=== PATIENT | female | born 1970 | race Hispanic/Latino ===

== ENCOUNTER 2021-01-13 16:11 | Inpatient (IN) | payer OTHER ==
--- OUTSIDE RECORDS SUMMARY | 2021-01-13 16:14 | XMS REPORT | Continuity of Care Document ---
:1970 Author Organization [facility] t Address [address] [place] [address] Care Team Providers Name Role Phone Tisha ALANIZ Attending Clinician Problems This patient has no known problems. Allergies, Adverse Reactions, Alerts This patient has no known allergies or adverse reactions. Medications This patient has no known medications. Procedures This patient has no known procedures. Encounters Start End Encounter Admission Attending Care Care Encounter Source Date/Time Date/Time Type Type Clinicians Facility Department ID 2019-05-16 2019-05-16 [facility] [id number] 14:40:33 23:59:00 Encounter Dusty LOVELLRob [id number] MEDICAL [id number] [place] [id number] Results Test Description Test Time Test Comments Results Result Sourc e Comments Urine Culture 2019-05-24 C Urine Added 50,000 cfu/ml Gamma 11:48:25 by Streptococcus <10,000 [id number] cfu/ml Coagulase ND Negative Staphylococcus 20,000 cfu/ml Diphtheroids Multiple organisms present, no further workup in progress. RPR Qualitative 2019-05-17 05:12:47 Test Item Value Reference Range Interpretation Comme nts RPR Qual (test code = RPR Qual) Non-Reactive Non-Reactive Reactive Control (test code = Reactive Control) Reactive Weak Reactive Control (test code = Weak Reactive Weak Reactive Control) Non-Reactive Control (test code = Non-Reactive Non-Reactive Control) Lot # (test code = Lot #) [id number] Expiration Dt (test code = Expiration Dt) 08/18/2020 N Thyroid Stimulating [id number] 03:01:07 Test Item Value Reference Range Interpretation Comments TSH (test code = TSH) 1.720 mIU/mL 0.270-4.200 Lipid [id number] 02:37:10 Test Item Value Reference Range Interpretation Comments Cholesterol Total 265 mg/dL 0-200 H RISK OF HE ART (test code = DISEASEPublishe d by Cholesterol Total) [place] [employer] Cindy lyte Optimal Borderl ine Increased RiskC HOL <200 200-239 >2 40TRIG <150 150-199 >2 00HDL Male >60 <40H DL Female >60 <5 0LDL <100 130-159 >1 60LDL Near optimal is 100-129 Triglycerides (test 169 mg/dL 9-200 code = Triglycerides) HDL (test code = HDL) 73 mg/dL 50-60 H LDL (test code = LDL) 158 mg/dL 0-130 H The eq uation being used in this calcula tion is LDL = (Chol - H DL) - (Trig / 5) VLDL (test code = 34 mg/dL 5-40 The equati on being used VLDL) in this calcula tion is VLDL = Trig / 5 Chol/HDL (test code = 3.6 ratio 0.0-4.4 Chol/HDL) LDL/HDL Ratio (test 2 N The equa tion being used code = LDL/HDL Ratio) in thi s calculation is LDL/HDL Ratio=L DL Calc/HDL Chol Urinalysis [id number] 14:49:30 Test Item Value Reference Range Interpretation Comments UA WBC (test code = UA WBC) 0-5 0-5 UA RBC (test code = UA RBC) 0-5 0-5 UA Bacteria (test code = UA Bacteria) Few A UA Squam Epithelial (test code = UA 11-19 A Squam Epithelial) UA Renal Epi (test code = UA Renal Epi) 1-4 A UA Gran Cast (test code = UA Gran Cast) 1-5 A Urine Drug [id number] 14:10:48 Test Item Value Reference Range Interpretation Comments Amphetamine Screen Ur Negative Negative (test code = Amphetamine Screen Ur) Barbiturate Screen Ur Negative Negative (test code = Barbiturate Screen Ur) Benzodiazepines Ur (test Negative Negative code = Benzodiazepines Ur) Cocaine Screen Ur (test Negative Negative code = Cocaine Screen Ur) U Methadone Scr (test Negative Negative code = U Methadone Scr) Opiate Screen Ur (test Negative Negative code = Opiate Screen Ur) U PCP Scrn (test code = Negative Negative U PCP Scrn) Cannabinoid Screen Ur Negative Negative (test code = Cannabinoid Screen Ur) U TCA (test code = U Negative Negative The res ults of all TCA) drug screen carter ts are only preliminar y. Clinical consideration a nd professional ju dgment should be appli ed to any drug of abu se test result, particularly wh en preliminary pos itive results are obt ained. Please order a separate confir matory test if desired . Ethanol Level [id number] 14:07:55 Test Item Value Reference Range Interpretation Comments U Ethanol (test code = U Ethanol) <.00 g/dL .00-.01 U Ethanol Inst (test code = U <0.01 N Ethanol Inst) Urinalysis with Culture, if [id number] 14:06:02 Test Item Value Reference Range Interpretation Comments UA Color (test code = YELLO Yellow UA Color) UA Appear (test code = CLEAR Clear UA Appear) UA pH (test code = UA 5 N pH) UA Spec Grav (test code 1.024 1.001-1.035 = UA Spec Grav) UA Glucose (test code = NEG Negative UA Glucose) UA Bili (test code = UA NEG Negative Bili) UA Ketones (test code = 15 mg/dL Negative A UA Ketones) UA Blood (test code = NEG Negative UA Blood) UA Protein (test code = NEG Negative UA Protein) UA Urobilinogen (test 0.2 mg/dL N code = UA Urobilinogen) UA Nitrite (test code = NEG Negative UA Nitrite) UA Leuk Est (test code 25 cells/mcL Negative A = UA Leuk Est) UA Micro Ind? (test Indicated Not Indicated A Result created by code = UA Micro Ind?) rule GL_SJM_UA_MICRO _IN D HCG Qualitative [id number] 14:05:59 Test Item Value Reference Range Interpretation Comments hCG Ur (test code = Negative If the r esult is hCG Ur) "Negative" in p atients suspected to be , recom mend retest with a s ample obtained 48 to 72 hours later, or by ordering a quantitative as say. If the result i s "Borderline" te sting should be repea ivelisse in 48 to 72 hours. Lot # (test code = [id number] N Lot #) Expiration Dt (test 08/18/2020 N code = Expiration Dt) Neg Control (test Negative code = Neg Control) Pos Control (test Positive code = Pos Control) Internal QC (test Acceptable code = Internal QC) Comprehensive Metabolic [id number] 14:05:29 Test Item Value Reference Range Interpretation Comments Sodium Level (test code = Sodium 141.0 mmol/L 135.0-145.0 Level) Potassium Level (test code = 4.2 mmol/L 3.5-5.1 Potassium Level) Chloride Level (test code = 104 mmol/L 98-105 Chloride Level) CO2 (test code = CO2) 26 mmol/L 22-29 Anion Gap (test code = Anion 11 mmol/L 7-16 Gap) BUN (test code = BUN) 11.40 mg/dL 6.00-20.00 Creatinine Level (test code = 0.70 mg/dL 0.50-0.90 Creatinine Level) BUN/Creat Ratio (test code = 16 N BUN/Creat Ratio) Glucose Level (test code = 100 mg/dL 70-115 Glucose Level) Calcium Level (test code = 9.9 mg/dL 8.3-10.5 Calcium Level) Alk Phos (test code = Alk Phos) 84 U/L 35-104 Bilirubin Total (test code = 0.4 mg/dL 0.1-0.9 Bilirubin Total) Albumin Level (test code = 4.7 g/dL 3.5-5.2 Albumin Level) Protein Total (test code = 7.4 g/dL 6.4-8.3 Protein Total) ALT (test code = ALT) 13 U/L 1-33 AST (test code = AST) 13 U/L 1-32 Globulin (test code = Globulin) 2.7 g/dL 2.9-3.1 L A/G Ratio (test code = A/G 1.7 ratio N Ratio) Comprehensive Metabolic [id number] 14:05:29 Test Item Value Reference Range Interpretation Comments Sodium Level (test 141.0 mmol/L 135.0-145.0 code = Sodium Level) Potassium Level 4.2 mmol/L 3.5-5.1 (test code = Potassium Level) Chloride Level (test 104 mmol/L 98-105 code = Chloride Level) CO2 (test code = 26 mmol/L 22-29 CO2) Anion Gap (test code 11 mmol/L 7-16 = Anion Gap) BUN (test code = 11.40 mg/dL 6.00-20.00 BUN) Creatinine Level 0.70 mg/dL 0.50-0.90 (test code = Creatinine Level) BUN/Creat Ratio 16 N (test code = BUN/Creat Ratio) Glucose Level (test 100 mg/dL 70-115 code = Glucose Level) Calcium Level (test 9.9 mg/dL 8.3-10.5 code = Calcium Level) Alk Phos (test code 84 U/L 35-104 = Alk Phos) Bilirubin Total 0.4 mg/dL 0.1-0.9 (test code = Bilirubin Total) Albumin Level (test 4.7 g/dL 3.5-5.2 code = Albumin Level) Protein Total (test 7.4 g/dL 6.4-8.3 code = Protein Total) ALT (test code = 13 U/L 1-33 ALT) AST (test code = 13 U/L 1-32 AST) Globulin (test code 2.7 g/dL 2.9-3.1 L = Globulin) A/G Ratio (test code 1.7 ratio N = A/G Ratio) eGFR AA (test code = >60 N eGFR (e stimated eGFR AA) mL/min/1.73 m2 Glomerular Filtration Rate ) is an estimated va lue, calculated from the patient's serum creatinine usin g the MDRD equation. It is NOT the patient 's actual GFR. The eGFR provides a more clinically usef ul measure of kidn ey disease than se rum creatinine alone.This calculation katerina es sex and race in to account, if the information is provided. If th e race is not provided, and t he patient is -Meaghan n, multiply by 1.2 12. If sex is not provided, and t he patient is fema le, multiply by 0.7 42. Results for pat ients <18 years of ag e have not been validated by [facility] MDRD study and should be interpreted wit h caution. eGFR R esult Interpretation: eGFR > or = 60 is in the Normal RangeeGF R < 60 may mean kid jas diseaseeGFR < 1 5 may mean kidney failure Rang es recommended by the National Kidney Foundation, http://nkdep.ni h.gov Comprehensive Metabolic [id number] 14:05:29 Test Item Value Reference Range Interpretation Comments Sodium Level (test 141.0 mmol/L 135.0-145.0 code = Sodium Level) Potassium Level 4.2 mmol/L 3.5-5.1 (test code = Potassium Level) Chloride Level (test 104 mmol/L 98-105 code = Chloride Level) CO2 (test code = 26 mmol/L 22-29 CO2) Anion Gap (test code 11 mmol/L 7-16 = Anion Gap) BUN (test code = 11.40 mg/dL 6.00-20.00 BUN) Creatinine Level 0.70 mg/dL 0.50-0.90 (test code = Creatinine Level) BUN/Creat Ratio 16 N (test code = BUN/Creat Ratio) Glucose Level (test 100 mg/dL 70-115 code = Glucose Level) Calcium Level (test 9.9 mg/dL 8.3-10.5 code = Calcium Level) Alk Phos (test code 84 U/L 35-104 = Alk Phos) Bilirubin Total 0.4 mg/dL 0.1-0.9 (test code = Bilirubin Total) Albumin Level (test 4.7 g/dL 3.5-5.2 code = Albumin Level) Protein Total (test 7.4 g/dL 6.4-8.3 code = Protein Total) ALT (test code = 13 U/L 1-33 ALT) AST (test code = 13 U/L 1-32 AST) Globulin (test code 2.7 g/dL 2.9-3.1 L = Globulin) A/G Ratio (test code 1.7 ratio N = A/G Ratio) eGFR AA (test code = >60 N eGFR (e stimated eGFR AA) mL/min/1.73 m2 Glomerular Filtration Rate ) is an estimated va lue, calculated from the patient's serum creatinine usin g the MDRD equation. It is NOT the patient 's actual GFR. The eGFR provides a more clinically usef ul measure of kidn ey disease than se rum creatinine alone.This calculation katerina es sex and race in to account, if the information is provided. If th e race is not provided, and t he patient is -Meaghan n, multiply by 1.2 12. If sex is not provided, and t he patient is fema le, multiply by 0.7 42. Results for pat ients <18 years of ag e have not been validated by [facility] MDRD study and should be interpreted wit h caution. eGFR R esult Interpretation: eGFR > or = 60 is in the Normal RangeeGF R < 60 may mean kid jas diseaseeGFR < 1 5 may mean kidney failure Rang es recommended by the National Kidney Foundation, http://nkdep.ni h.gov eGFR Non-AA (test >60.00 N eGFR (maurilio mated code = eGFR Non-AA) mL/min/1.73 m2 Glomer ular Filtration Rate ) is an estimated va lue, calculated from the patient's serum creatinine usin g the MDRD equation. It is NOT the patient 's actual GFR. The eGFR provides a more clinically usef ul measure of kidn ey disease than se rum creatinine alone.This calculation katerina es sex and race in to account, if the information is provided. If th e race is not provided, and t he patient is -Meaghan n, multiply by 1.2 12. If sex is not provided, and t he patient is fema le, multiply by 0.7 42. Results for pat ients <18 years of ag e have not been validated by [facility] MDRD study and should be interpreted wit h caution. eGFR R esult Interpretation: eGFR > or = 60 is in the Normal RangeeGF R < 60 may mean kid jas diseaseeGFR < 1 5 may mean kidney failure Rang es recommended by the National Kidney Foundation, http://nkdep.ni h.gov Automated [id number] 13:53:32 Test Item Value Reference Range Interpretation Comments Neutro Auto (test code = Neutro 60.0 % 36.0-70.0 Auto) Lymph Auto (test code = Lymph Auto) 33.0 % 12.0-44.0 Sioux Auto (test code = Sioux Auto) 5.8 % 0.0-11.0 Eos, Auto (test code = Eos, Auto) 0.5 % 0.0-7.0 Basophil Auto (test code = Basophil 0.5 % 0.0-2.0 Auto) Neutro Absolute (test code = Neutro 3.8 x10 1.6-7.4 Absolute) Lymph Absolute (test code = Lymph 2.10 x10 .50-4.60 Absolute) Sioux Absolute (test code = Sioux .37 x10 .00-1.20 Absolute) Eos Absolute (test code = Eos 0.03 x10 0.00-0.74 Absolute) Baso Absolute (test code = Baso 0.03 x10 0.00-0.21 Absolute) IG [id number] 13:53:32 Test Item Value Reference Range Interpretation Comments IG (test code = IG) 0.2 % 0.0-5.0 IG Abs (test code = IG Abs) 0 x10 N Complete Blood Count with [id number] 13:53:31 Test Item Value Reference Range Interpretation Comments WBC (test code = WBC) 6.4 x10 4.4-10.5 RBC (test code = RBC) 4.05 x10 3.75-5.20 Hgb (test code = Hgb) 12.7 g/dL 12.2-14.8 Hct (test code = Hct) 37.8 % 36.5-44.4 MCV (test code = MCV) 93.30 fL 80.00-100.00 MCHC (test code = 33.60 g/dL 32.00-37.50 MCHC) RDW CV (test code = 12.1 % 11.5-14.5 RDW CV) MCH (test code = MCH) 31.4 pg 27.0-32.5 Platelets (test code = 278.0 x10 140.0-440.0 Platelets) MPV (test code = MPV) 10.5 fL N Slide Review (test Auto Auto Result cr eated by code = Slide Review) GL_SJM_ SLIDE_REV_AUTO nRBC (test code = 0 N nRBC) NRBC Abs (test code = 0.00 x10 N NRBC Abs) IPF (test code = IPF) 0 % N
[2021-01-13] MEDS ORDERED: METHYLPREDNISOLONE 125 MG INJ ONE (16:42)
[2021-01-13 16:55] LABS: Absolute Lymphocytes (CBC) 0.6 K/uL (0.7-4.9); Basophils % 0.2 % (0-1.3); Lymphocytes % 15.5 % (15.3-44.8); MPV 8.6 fL (7.6-11.3); RBC Red Blood Cell Count 4.02 M/uL (3.86-4.86)
--- NOTE | 2021-01-13 16:55 | RAD REPORT ---
EXAM DESCRIPTION: Paulette Single View01/13/2021 4:46 pm CLINICAL HISTORY: Cough COMPARISON: 2014 FINDINGS: Moderate bilateral pulmonary opacities The heart is normal size IMPRESSION: Moderate bilateral pulmonary opacities likely pneumonia
[2021-01-13 17:12] LABS: Albumin 3.2 g/dL (3.4-5.0); Bilirubin Direct 0.1 mg/dL (0-0.2); Bilirubin Total 0.3 mg/dL (0.2-1.0); Ferritin 474.9 ng/mL (8-388); Potassium 3.8 mmol/L (3.5-5.1); Protein, Total 8.2 g/dL (6.4-8.2)
--- NOTE | 2021-01-13 17:20 | ER ---
Nurse's Notes [facility] Name: Milvia Wei Age: 50 yrs Sex: Female : 1970 Arrival Date: 01/13/2021 Time: 16:12 Bed 8 Private MD: Diagnosis: Coronavirus infection, unspecified;Pneumonia, unspecified organism;Hypoxemia Presentation: 01/13 16:13 Coronavirus screen: Client reports previous positive COVID test result. Ebola Screen: sv No symptoms or risks identified at this time. Risk Assessment: Do you want to hurt yourself or someone else? Patient reports no desire to harm self or others. Onset of symptoms was January 13, 2021. 16:13 Acuity: THELMA 2 sv 16:13 Method Of Arrival: EMS: [facility] sv 16:14 Chief complaint: EMS states: COVID + since Last Thursday. Not feeling well x 1 week. Pt ss c/o SOB. 88% on RA. 3L NC applied en route to ED which brought O2 saturation up to 96%. Temperature is 100.2. Pt has not taken any medication today. Initial Sepsis Screen: Does the patient meet any 2 criteria? HR > 90 bpm. Does the patient have a suspected source of infection? No. Patient's initial sepsis screen is negative. Historical: - Allergies: 16:13 No Known Allergies; sv - Home Meds: 18:38 None [Active]; ss - PMHx: 18:38 None; ss - PSHx: 16:13 ; sv - Immunization history:: Adult Immunizations up to date. - Social history:: Smoking status: Patient denies any tobacco usage or history of. - Family history:: not pertinent. - Hospitalizations: : No recent hospitalization is reported. Screenin:19 Abuse screen: Denies threats or abuse. Denies injuries from another. Nutritional ss screening: No deficits noted. Tuberculosis screening: Never had TB. Fall Risk None identified. Assessment: 16:19 General: Appears in no apparent distress. comfortable, Behavior is calm, cooperative, ss Reports chills for fever for feeling ill for fatigue for x 1 week. Pain: Complains of pain in back Pain currently is 7 out of 10 on a pain scale. Quality of pain is described as aching. Neuro: Level of Consciousness is awake, alert, obeys commands, Oriented to person, place, time, situation, Radio Machinist are equal bilaterally Speech is normal, Facial symmetry appears normal. Cardiovascular: Capillary refill < 3 seconds is brisk in bilateral fingers Rhythm is sinus tachycardia. Respiratory: Airway is patent Respiratory effort is even, unlabored, Respiratory pattern is regular, symmetrical, Breath sounds are clear bilaterally. GI: Patient currently denies diarrhea, nausea, vomiting. : No signs and/or symptoms were reported regarding the genitourinary system. EENT: Nares are clear Oral mucosa is moist. Derm: Skin is dry, Skin is pink, warm \T\ dry. Musculoskeletal: Circulation, motion, and sensation intact. Range of motion: intact in all extremities, Swelling absent. 17:27 Reassessment: Patient appears in no apparent distress at this time. Patient and/or hb family updated on plan of care and expected duration. Pain level reassessed. Patient is alert, oriented x 3, equal unlabored respirations, skin warm/dry/pink. 18:40 Reassessment: Patient appears in no apparent distress at this time. Pt is resting at ss this time. Eyes closed. Respirations even and unlabored. Ivermectin not available at this time as pharmacy is closed. 19:41 General: Appears ill, Behavior is quiet. Neuro: Level of Consciousness is awake, obeys lp1 commands, Oriented to person, place, situation. Cardiovascular: Patient's skin is warm and dry. Respiratory: Airway is patent Respiratory effort is even, Respiratory pattern is regular, Breath sounds are diminished bilaterally. GI: Abdomen is obese. Derm: Skin is intact, Skin is dry, Skin is normal. Vital Signs: 16:14 BP 136 / 82; Pulse 105 RA; Resp 26; Temp 99.8(O); Pulse Ox 96% ; Weight 77.11 kg; ss Height 5 ft. 0 in. (152.40 cm); Pain 7/10; 17:27 BP 132 / 68; Pulse 101; Resp 22; Pulse Ox 95% on 3 lpm NC; ss 18:38 BP 110 / 56; Pulse 93; Resp 17; Pulse Ox 94% on 3 lpm NC; ss 19:41 BP 103 / 61; Pulse 94; Resp 20; Temp 101.3(O); Pulse Ox 94% 3 lpm ; lp1 16:14 Body Mass Index 33.20 (77.11 kg, 152.40 cm) ED Course: 16:12 Patient arrived in ED. sv 16:12 Dick Mccabe MD is Attending Physician. rn 16:14 Yenifer Vega, ALICIA is Primary Nurse. ss 16:14 Triage completed. sv 16:14 Arm band placed on right wrist. ss 16:19 Patient has correct armband on for positive identification. Placed in gown. Bed in low ss position. Call light in reach. Side rails up X 1. slip cover maker on. Pulse ox on. NIBP on. Warm blanket given. 16:35 Inserted saline lock: 20 gauge in right antecubital area, using aseptic technique. ss Blood collected. 16:46 CXR XRAY In Process Unspecified. EDMS 17:19 Jaqueline Hensley MD is Hospitalizing Provider. rn 17:32 Edgard Osorio MD is Hospitalizing Provider. rn 18:03 Blood Culture Adult (2) Sent. sv 18:42 No provider procedures requiring assistance completed. Patient admitted, IV remains in ss place. 19:33 Report given to LAICIA Reardon and ALICIA Pérez. ss Administered Medications: 16:30 Drug: SOLU-Medrol 125 mg Route: IVP; Site: right antecubital; ss 18:38 Follow up: Response: No adverse reaction ss 17:46 Drug: Zofran (Ondansetron) 4 mg Route: IVP; Site: right antecubital; hb 18:38 Follow up: Response: No adverse reaction; Nausea is decreased ss 19:18 Not Given (unavailable at this time as pharmacy is closed): Ivermectin 18 mg PO once ss 19:19 Not Given (Not available in department. To be given once upstairs): Xarelto 20 mg PO ss once Outcome: 17:19 Decision to Hospitalize by Provider. rn 18:42 Instructed on the need for admit. ss 19:51 Condition: stable lp1 20:34 Admitted to Tele accompanied by nurse, via stretcher, room 401, with oxygen, with lp1 chart, Report called to ALICIA diallo 20:35 Patient left the ED. lp1 Signatures: Dispatcher [employer] [facility] Alessandra Bidr RN RN Dick Mccabe MD MD rn Smirch, Shelby, RN RN Caron Block RN RN lp1 Shira Garcia RN RN hb Corrections: (The following items were deleted from the chart) 17:28 17:27 BP 132 / 68; Pulse 101bpm; Resp 17bpm; Pulse Ox 95%; hb hb 18:37 16:14 BP 136 / 82; Pulse 105bpm; Right ArmResp 19bpm; Pulse Ox 96%; Temp 99.8F Oral; ss 77.11 kg; Height 5 ft. 0 in.; BMI: 33.2; Pain 7/10; ss 18:37 17:27 BP 132 / 68; Pulse 101bpm; Resp 17bpm; Pulse Ox 95% 3 lpm Nasal Cannula; hb ss 18:42 18:40 Reassessment: Patient appears in no apparent distress at this time. Pt is resting ss at this time. Eyes closed. Respirations even and unlabored. Ivermectin not available at this time. ss 19:45 19:41 Pulse 94bpm; Resp 20bpm; Pulse Ox 94% 3 lpm; Temp 101.3F Oral; lp1 lp1 19:51 19:41 BP 98 / 52; Pulse 94bpm; Resp 20bpm; Pulse Ox 94% 3 lpm; Temp 101.3F Oral; lp1 lp1
--- NOTE | 2021-01-13 17:20 | EDPHYS ---
Physician Documentation [facility] Name: Milvia Wei Age: 50 yrs Sex: Female : 1970 Arrival Date: 01/13/2021 Time: 16:12 Bed 8 Private MD: ED Physician Dick Mccabe HPI: 01/13 16:21 This 50 yrs old Female presents to ER via EMS with complaints of Shortness Of rn Breath. 16:21 The patient has shortness of breath at rest. Onset: The symptoms/episode began/occurred rn 1 week(s) ago. Duration: The symptoms are continuous. The patient's shortness of breath is aggravated by coughing, light activity, walking, is alleviated by nothing. Associated signs and symptoms: Pertinent positives: productive cough, fever, Pertinent negatives: hemoptysis. Severity of symptoms: At their worst the symptoms were moderate in the emergency department the symptoms are unchanged. The patient has not experienced similar symptoms in the past. The patient has been recently seen by a physician:. Reports COVID +, symptoms began 1 week ago, tested and positive, reports increased sob and generalized weakness, + productive cough, no hemoptysis. No chronic lung problems. No heart problems. No chest pain. . Historical: - Allergies: 16:13 No Known Allergies; sv - Home Meds: 18:38 None [Active]; ss - PMHx: 18:38 None; ss - PSHx: 16:13 ; sv - Immunization history:: Adult Immunizations up to date. - Social history:: Smoking status: Patient denies any tobacco usage or history of. - Family history:: not pertinent. - Hospitalizations: : No recent hospitalization is reported. ROS: 16:21 Constitutional: Negative for weight loss Eyes: Negative for injury, pain, redness, and contracts intern, ENT: Negative for injury, pain, and discharge, Neck: Negative for injury, pain, and swelling, Cardiovascular: Negative for chest pain, palpitations, and edema, Respiratory: Negative for wheezing, and pleuritic chest pain, Abdomen/GI: Negative for abdominal pain, nausea, vomiting, diarrhea, and constipation, MS/Extremity: Negative for injury and deformity, Skin: Negative for injury, rash, and discoloration, Neuro: Negative for numbness, tingling, and seizure. Exam: 16:21 Constitutional: This is a well developed, well nourished patient who is awake, alert, rn + moderate tachypnea Head/Face: Normocephalic, atraumatic. Eyes: Pupils equal round and reactive to light, extra-ocular motions intact. Lids and lashes normal. Conjunctiva and sclera are non-icteric and not injected. Cornea within normal limits. Periorbital areas with no swelling, redness, or edema. ENT: no stridor Cardiovascular: tachycardic, regular Respiratory: + moderate tachypnea, no retractions Skin: Warm, dry MS/ Extremity: Pulses equal, no cyanosis. Neurovascular intact. Full, normal range of motion. Equal circumference. Neuro: Awake and alert, GCS 15 Vital Signs: 16:14 BP 136 / 82; Pulse 105 RA; Resp 26; Temp 99.8(O); Pulse Ox 96% ; Weight 77.11 kg; ss Height 5 ft. 0 in. (152.40 cm); Pain 7/10; 17:27 BP 132 / 68; Pulse 101; Resp 22; Pulse Ox 95% on 3 lpm NC; ss 18:38 BP 110 / 56; Pulse 93; Resp 17; Pulse Ox 94% on 3 lpm NC; ss 19:41 BP 103 / 61; Pulse 94; Resp 20; Temp 101.3(O); Pulse Ox 94% 3 lpm ; lp1 16:14 Body Mass Index 33.20 (77.11 kg, 152.40 cm) ss MDM: 16:12 Patient medically screened. rn 17:18 Differential diagnosis: pneumonia, Pneumothorax pulmonary edema, COVID pneumonia. Data rn reviewed: vital signs, nurses notes, lab test result(s), EKG, radiologic studies, plain films, and as a result, I will admit patient. Counseling: I had a detailed discussion with the patient and/or guardian regarding: the historical points, exam findings, and any diagnostic results supporting the discharge/admit diagnosis, lab results, radiology results, the need for further work-up and treatment in the hospital. Response to treatment: the patient's symptoms have mildly improved after treatment, and as a result, I will admit patient. Admission orders: after a detailed discussion of the patient's condition and case, the admit orders are written by me. ED course: Pt with worsening COVID pneumonia and oxygen requirement, no chronic medical conditions, will admit To Dr. Osorio. Requests xarelto, ivermectin, solumedrol, and remdesevir. . 17:24 ED course: . rn 01/13 16:18 Order name: Blood Culture Adult (2) rn 01/13 16:18 Order name: BMP; Complete Time: 17:17 rn 01/13 16:18 Order name: C-Reactive Protein; Complete Time: 17:17 rn 01/13 16:18 Order name: CBC with Diff; Complete Time: 17:02 rn 01/13 16:18 Order name: D-Dimer; Complete Time: 17:02 rn 01/13 16:18 Order name: Ferritin; Complete Time: 17:17 rn 01/13 16:18 Order name: Lactate; Complete Time: 17:17 rn 01/13 16:18 Order name: LFT's; Complete Time: 17:17 rn 01/13 16:18 Order name: Procalcitonin rn 01/13 16:18 Order name: CXR XRAY; Complete Time: 17:02 rn 01/13 16:18 Order name: Blood Culture EDPA 01/13 16:18 Order name: EKG; Complete Time: 16:19 rn 01/13 16:18 Order name: Cardiac monitoring; Complete Time: 16:34 rn 01/13 16:18 Order name: Droplet/Contact Precautions; Complete Time: 16:34 rn 01/13 16:18 Order name: EKG - Nurse/Tech; Complete Time: 16:49 rn 01/13 16:18 Order name: IV Start; Complete Time: 16:34 rn 01/13 16:18 Order name: Labs collected and sent; Complete Time: 16:35 rn 01/13 16:18 Order name: O2 Per Protocol; Complete Time: 16:35 rn 01/13 16:18 Order name: O2 Sat Monitoring; Complete Time: 16:35 rn Administered Medications: 16:30 Drug: SOLU-Medrol 125 mg Route: IVP; Site: right antecubital; ss 18:38 Follow up: Response: No adverse reaction ss 17:46 Drug: Zofran (Ondansetron) 4 mg Route: IVP; Site: right antecubital; hb 18:38 Follow up: Response: No adverse reaction; Nausea is decreased ss 19:18 Not Given (unavailable at this time as pharmacy is closed): Ivermectin 18 mg PO once ss 19:19 Not Given (Not available in department. To be given once upstairs): Xarelto 20 mg PO ss once Disposition: 01/13/21 17:19 Hospitalization ordered by Edgard Osorio for Inpatient Admission. Preliminary diagnosis are Coronavirus infection, unspecified, Pneumonia, unspecified organism, Hypoxemia. - Bed requested for Telemetry/MedSurg (Inpatient). - Status is Inpatient Admission. lp1 - Condition is Stable. - Problem is new. - Symptoms have worsened. Signatures: Dispatcher [employer] EDMS Alessandra Bird RN RN Dick Mccabe MD MD rn Smirch, Shelby, RN RN Caron Block RN RN lp1 Shira Garcia RN RN Sue Cosme Corrections: (The following items were deleted from the chart) 17:32 17:19 Hospitalization Ordered by Jaqueline Hensley MD for Inpatient Admission. Preliminary rn diagnosis is Coronavirus infection, unspecified; Pneumonia, unspecified organism; Hypoxemia. Bed requested for Telemetry/MedSurg (Inpatient). Status is Inpatient Admission. Condition is Stable. Problem is new. Symptoms have worsened. rn 17:33 17:18 ED course: Pt with worsening COVID pneumonia and oxygen requirement, no chronic rn medical conditions, will admit To Dr. Hensley. . rn 17:33 17:24 ED course: Dr. 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 Will call back Dr. De Leon and consult with her. . rn 18:40 17:32 01/13/2021 17:19 Hospitalization Ordered by Edgard Osorio MD for Inpatient eb Admission. Preliminary diagnosis is Coronavirus infection, unspecified; Pneumonia, unspecified organism; Hypoxemia. Bed requested for Telemetry/MedSurg (Inpatient). Status is Inpatient Admission. Condition is Stable. Problem is new. Symptoms have worsened. rn 20:35 18:40 01/13/2021 17:19 Hospitalization Ordered by Edgard Osorio MD for Inpatient lp1 Admission. Preliminary diagnosis is Coronavirus infection, unspecified; Pneumonia, unspecified organism; Hypoxemia. Bed requested for Telemetry/MedSurg (Inpatient). Status is Inpatient Admission. Condition is Stable. Problem is new. Symptoms have worsened. eb
[2021-01-13] MEDS ORDERED: ONDANSETRON 4 MG/2 ML VIAL ONE (17:57)
[2021-01-13] MEDS ORDERED: RIVAROXABAN 10 MG TABLET PO ONE (19:15)
[2021-01-13] MEDS: ACETAMINOPHEN 500 MG TAB PO PRN (19:49)
[2021-01-13] MEDS ORDERED: ACETAMINOPHEN 500 MG TAB ONE (20:05)
[2021-01-13] MEDS: METHYLPREDNISOLONE 125 MG INJ IV SCH (22:26)
[2021-01-14 04:27] LABS: Absolute Lymphocytes (CBC) 0.4 K/uL (0.7-4.9); Basophils % 0.1 % (0-1.3); Hematocrit 34.4 % (36.0-45.0); Lymphocytes % 16.8 % (15.3-44.8); MPV 8.7 fL (7.6-11.3); RBC Red Blood Cell Count 3.84 M/uL (3.86-4.86)
[2021-01-14 04:37] LABS: Potassium 4.1 mmol/L (3.5-5.1)
[2021-01-14] MEDS: METHYLPREDNISOLONE 125 MG INJ IV SCH ×4 (05:13→20:05)
[2021-01-14 06:33] LABS: Blood Morphology Comment NOT SEEN (NOT SEEN); Platelet Estimate ADEQ; White Blood Cell Scan OK (OK)
[2021-01-14] MEDS: levoFLOXacin 500 MG TAB PO SCH (07:50)
--- NOTE | 2021-01-14 08:29 | P.CNS ---
Date of Consult: 01/14/21 Reason for Consult: Respiratory failure due to ma virus Chief Complaint: Shortness of breath History of Present Illness: Patient is 50 years of age was diagnosed with ma virus about a week ago came in hypoxic progressive shortness of breath as currently on high-flow nasal cannula condition stable Allergies No Known Allergies Allergy (Unverified 08/23/12 15:26) Home Medications: NK [No Home Meds] 01/13/21 - Social History Place of Residence: Home Review of Systems General: Weakness Respiratory: Shortness of Breath Physical Examination Temp Pulse Resp BP Pulse Ox 97.4 F 66 16 106/56 L 91 01/14/21 04:00 01/14/21 04:00 01/14/21 04:00 01/14/21 04:00 01/14/21 04:00 Laboratory Data (last 24 hrs) 01/13/21 16:36: WBC 4.00 L, Hgb 12.2, Hct 36.0, Plt Count 181 01/13/21 16:36: Sodium 140, Potassium 3.8, BUN 13, Creatinine 0.88, Glucose 119 H, Total Bilirubin 0.3, AST 39 H, ALT 40, Alkaline Phosphatase 84 - Problems (1) Pneumonia due to 2019 novel coronavirus Current Visit: Yes Status: Acute Plan: Patient is 50 years of age admitted with respiratory failure from ma virus labs reviewed white count is mildly decreased currently stable can Dc levofloxacin no evidence of an infection decrease Solu-Medrol to 80 mg twice a day agree with full anticoagulation/ Remdesmir add aspirin
[2021-01-14] MEDS: ASPIRIN EC 81 MG TAB PO SCH (09:00)
[2021-01-14] MEDS ORDERED: Remdesivir 200 MG in NA CHLORIDE 0.9% 250 ML IV ONE (10:00)
[2021-01-14] MEDS ORDERED: RIVAROXABAN 10 MG TABLET PO SCH (17:00)
[2021-01-14] MEDS: RIVAROXABAN 20 MG TABLET PO SCH (17:16)
[2021-01-14] MEDS: ACETAMINOPHEN 500 MG TAB PO PRN (20:05)
--- NOTE | 2021-01-14 21:07 | P.HP ---
Certification for Inpatient Patient admitted to: Inpatient With expected LOS: >2 Midnights Practitioner: I am a practitioner with admitting privileges, knowledge of patient current condition, hospital course, and medical plan of care. Services: Services provided to patient in accordance with Admission requirements found in Title 42 Section 412.3 of the Code of Federal Regulations Patient History Date of Service: 01/14/21 Reason for admission: Shortness of breath History of Present Illness: MS. BUSH FOUND THAT SHE HAD COVID INFECTION ABOUTA WEEK AGO. I WAS NOT TOLD ABOUT THIS. SHE REPORTS TO ER FOR DYSPNEA. SHE HAS NOT TAKEN ANY THERAPY FOR IT. Allergies No Known Allergies Allergy (Unverified 08/23/12 15:26) Home Medications: NK [No Home Meds] 01/13/21 - Past Medical/Surgical History Has patient received pneumonia vaccine in the past: No Diabetic: No - Social History Smoking Status: Never smoker Place of Residence: Home Review of Systems 10-point ROS is otherwise unremarkable General: Weakness Respiratory: Cough, Shortness of Breath Physical Examination - Vital Signs Temperature: 96.8 F Blood Pressure: 118/61 Pulse: 72 Respirations: 16 Pulse Ox (%): 93 - Physical Exam General: Oriented x2, Mild distress, Obese HEENT: Atraumatic, PERRLA, Mucous membr. moist/pink, EOMI, Sclerae nonicteric Neck: Supple, 2+ carotid pulse no bruit, No LAD, Without JVD or thyroid abnormality Respiratory: Clear to auscultation bilaterally, Normal air movement Cardiovascular: Regular rate/rhythm, Normal S1 S2 Gastrointestinal: Normal bowel sounds, No tenderness Musculoskeletal: No tenderness Integumentary: No rashes Neurological: Normal gait, Normal speech, Normal strength at 5/5 x4 extr, Normal tone, Normal affect Lymphatics: No axilla or inguinal lymphadenopathy Assessment and Plan - Problems (Diagnosis) (1) Pneumonia due to 2019 novel coronavirus Current Visit: Yes Status: Acute Plan: WE ARE FOLLOWING MASK 2 PROTOCOL FOR COVID IV HIGH DOSE STEROIDS. IVERMECTIN PO EVERY OTHER DAY. XARELTO PO DAILY. REMDESIVIR DAILY IV. HIGH ARIEL OXYGEN PROGNOSIS GUARDED. - Advance Directives Does patient have a Living Will: No Does patient have a Durable POA for Healthcare: No
[2021-01-14] MEDS: IVERMECTIN 3 MG TABLET PO SCH (21:17)
[2021-01-15 03:58] LABS: ALT/SGPT 35 U/L (12-78); Albumin 2.8 g/dL (3.4-5.0); Alkaline Phosphatase 72 U/L (45-117); Bilirubin Direct < 0.1 mg/dL (0-0.2); Bilirubin Total 0.3 mg/dL (0.2-1.0); Protein, Total 7.7 g/dL (6.4-8.2)
[2021-01-15 04:02] LABS: AST/SGOT 36 U/L (15-37)
[2021-01-15] MEDS ORDERED: IVERMECTIN 3 MG TABLET PO ONE (06:00)
[2021-01-15] MEDS: ONDANSETRON 4 MG/2 ML VIAL IV PRN (08:25)
[2021-01-15] MEDS: levoFLOXacin 500 MG TAB PO SCH (08:26)
[2021-01-15] MEDS: METHYLPREDNISOLONE 125 MG INJ IV SCH ×2 (08:26→21:00)
[2021-01-15] MEDS: ACETAMINOPHEN 500 MG TAB PO PRN ×2 (08:26→22:48)
[2021-01-15] MEDS: ASPIRIN EC 81 MG TAB PO SCH (08:26)
[2021-01-15] MEDS: Remdesivir 100 MG in NA CHLORIDE 0.9% 250 ML IV SCH (09:32)
[2021-01-15] MEDS: RIVAROXABAN 20 MG TABLET PO SCH (17:49)
--- NOTE | 2021-01-16 01:53 | PN ---
Subjective: Milvia is COVID patient with pneumonia. Slightly better than yesterday according to her. She looks clinically in [id number] distress with the BiPAP in use. Heart is showing normal sinus rhythm. Assessment And Plan: COVID pneumonia. Continue current medications, steroids IV, oral ivermectin 2 dosages have been given, remdesivir second dose today and anticoagulation for DVT/ PE prophylaxis. Prognosis is overall guarded. RVD/MODL Voice ID: [id number] Report ID: [id number] MTDD
[2021-01-16] MEDS: ONDANSETRON 4 MG/2 ML VIAL IV PRN (03:37)
[2021-01-16 04:21] LABS: ALT/SGPT 37 U/L (12-78); AST/SGOT 33 U/L (15-37); Albumin 2.7 g/dL (3.4-5.0); Alkaline Phosphatase 78 U/L (45-117); Bilirubin Direct < 0.1 mg/dL (0-0.2); Bilirubin Total 0.3 mg/dL (0.2-1.0); Protein, Total 7.5 g/dL (6.4-8.2)
[2021-01-16] MEDS: ASPIRIN EC 81 MG TAB PO SCH (09:06)
[2021-01-16] MEDS: levoFLOXacin 500 MG TAB PO SCH (09:07)
[2021-01-16] MEDS: Remdesivir 100 MG in NA CHLORIDE 0.9% 250 ML IV SCH (09:07)
[2021-01-16] MEDS: METHYLPREDNISOLONE 125 MG INJ IV SCH ×2 (09:08→20:06)
--- NOTE | 2021-01-16 12:54 | P.PN ---
Subjective Date of Service: 01/16/21 Chief Complaint: Respiratory failure No change still very short of breath Review of Systems General: Weakness Respiratory: Shortness of Breath Physical Examination - Vital Signs Temperature: 96.7 F Blood Pressure: 109/53 Pulse: 79 Respirations: 24 Pulse Ox (%): 89 - Physical Exam General: Alert, Moderate distress Respiratory: Clear to auscultation bilaterally, Diminished Assessment & Plan - Problems (Diagnosis) (1) Pneumonia due to 2019 novel coronavirus Current Visit: Yes Status: Acute Plan: Respiratory failure from ma virus still requiring high concentrations of oxygen recommend reduce dose of Solu-Medrol to 80 IV Q 12can Dc antibiotics no evidence of sepsis hypoxemia Dc Levaquin
[2021-01-16] MEDS: RIVAROXABAN 20 MG TABLET PO SCH (17:00)
[2021-01-16] MEDS: ACETAMINOPHEN 500 MG TAB PO PRN (19:28)
[2021-01-16] MEDS: IVERMECTIN 3 MG TABLET PO SCH (20:06)
--- NOTE | 2021-01-17 00:35 | PN ---
Subjective: Ms. Wei is stable but oxygenation has gotten worse today. Dr. Dc has put her on high-flow oxygen. Objective: Vital Signs: Blood pressure 145/71, temperature 96.7. HEENT: No JVD. No carotid bruits. Lungs: Accessory muscles of respiration at work. She has a CPAP on and high-flow oxygen. Assessment And Plan: COVID pneumonia. Continue steroids IV, remdesivir IV. Ivermectin course has f inished every other day for 2 dosages and Xarelto p.o. to prevent DVT and pulmonary embolism. Progno sis guarded. RVD/MODL Voice ID: [id number] Report ID: [id number]
[2021-01-17 04:10] LABS: Absolute Lymphocytes (CBC) 0.5 K/uL (0.7-4.9); Basophils % 0.1 % (0-1.3); Hematocrit 35.3 % (36.0-45.0); Lymphocytes % 6.5 % (15.3-44.8); MPV 9.2 fL (7.6-11.3)
[2021-01-17 04:48] LABS: Albumin 2.6 g/dL (3.4-5.0); Bilirubin Direct 0.2 mg/dL (0-0.2); Bilirubin Total 0.5 mg/dL (0.2-1.0); Potassium 4.6 mmol/L (3.5-5.1)
[2021-01-17] MEDS: ONDANSETRON 4 MG/2 ML VIAL IV PRN ×2 (06:07→20:18)
[2021-01-17] MEDS: Remdesivir 100 MG in NA CHLORIDE 0.9% 250 ML IV SCH (09:00)
[2021-01-17] MEDS: ASPIRIN EC 81 MG TAB PO SCH (09:31)
[2021-01-17] MEDS: METHYLPREDNISOLONE 125 MG INJ IV SCH ×2 (09:32→20:26)
[2021-01-17] MEDS: GUAIFENESIN/DM 5 ML UCUP PO PRN ×2 (11:52→20:27)
[2021-01-17] MEDS: RIVAROXABAN 20 MG TABLET PO SCH (16:57)
--- NOTE | 2021-01-17 21:31 | P.PN ---
Subjective Date of Service: 01/17/21 Chief Complaint: Respiratory failure Subjective: No new changes NASAL CONGESTION, AND COUGH. Review of Systems Respiratory: Cough, Shortness of Breath Physical Examination - Vital Signs Temperature: 96.7 F Blood Pressure: 130/60 Pulse: 63 Respirations: 20 Pulse Ox (%): 90 - Physical Exam General: Oriented x3, Moderate distress HEENT: Atraumatic, PERRLA, EOMI Cardiovascular: Regular rate/rhythm Musculoskeletal: No tenderness Integumentary: No rashes Lymphatics: No axilla or inguinal lymphadenopathy - Studies Medications List Reviewed: Yes Assessment And Plan - Current Problems (Diagnosis) (1) Pneumonia due to 2019 novel coronavirus Current Visit: Yes Status: Acute Plan: WE ARE FOLLOWING MASK 2 PROTOCOL FOR COVID IV HIGH DOSE STEROIDS. IVERMECTIN PO EVERY OTHER DAY. XARELTO PO DAILY. REMDESIVIR DAILY IV. HIGH ARIEL OXYGEN PROGNOSIS GUARDED. ADD FLONASE AND ASTELIN FOR NASAL CONGESTION.
[2021-01-18] MEDS: FLUTICASONE 50MCG NASAL SPRAY NAS SCH ×2 (01:00→10:23)
[2021-01-18 05:20] LABS: Absolute Lymphocytes (CBC) 0.4 K/uL (0.7-4.9); Hematocrit 36.7 % (36.0-45.0); Lymphocytes % 5.4 % (15.3-44.8); MPV 9.2 fL (7.6-11.3); RBC Red Blood Cell Count 4.05 M/uL (3.86-4.86)
[2021-01-18 05:34] LABS: Albumin 2.7 g/dL (3.4-5.0); Bilirubin Direct 0.2 mg/dL (0-0.2); Bilirubin Total 0.6 mg/dL (0.2-1.0); Potassium 4.7 mmol/L (3.5-5.1); Protein, Total 7.1 g/dL (6.4-8.2)
[2021-01-18] MEDS: METHYLPREDNISOLONE 125 MG INJ IV SCH ×2 (08:29→21:16)
[2021-01-18] MEDS: ASPIRIN EC 81 MG TAB PO SCH (08:29)
--- NOTE | 2021-01-18 08:32 | RAD REPORT ---
EXAM DESCRIPTION: RAD - Chest Single View - 01/17/2021 10:11 pm CLINICAL HISTORY: COVID FU, pneumonia COMPARISON: January 13 TECHNIQUE: AP portable chest image was obtained 01/17/2021 10:11 pm . FINDINGS: Bilateral pneumonia changes, worse on the left, have shown moderate improvement since . Significant infiltrate remains. No developing failure or volume overload seen. Heart and vascul ature are normal. No measurable pleural effusion and no pneumothorax. No acute bony abnormality seen. No acute aortic findings suspected. IMPRESSION: Moderate improvement in the bilateral pneumonia pattern since January 13.
[2021-01-18] MEDS: AZELASTINE NASAL SPRAY 30 ML NAS SCH ×2 (10:21→21:17)
[2021-01-18] MEDS: ACETAMINOPHEN 500 MG TAB PO PRN (10:24)
[2021-01-18] MEDS: GUAIFENESIN/DM 5 ML UCUP PO PRN (10:24)
[2021-01-18] MEDS: ONDANSETRON 4 MG/2 ML VIAL IV PRN (10:26)
[2021-01-18] MEDS: RIVAROXABAN 20 MG TABLET PO SCH (17:41)
--- NOTE | 2021-01-18 20:52 | P.PN ---
Subjective Date of Service: 01/18/21 Chief Complaint: Respiratory failure Subjective: Improving NASAL CONGESTION, AND COUGH. SHE IS STILL VERY CONGESTED BY HER CXR HAS IMPROVED. Review of Systems 10-point ROS is otherwise unremarkable General: Weakness Physical Examination - Vital Signs Temperature: 97.3 F Blood Pressure: 133/66 Pulse: 59 Respirations: 24 Pulse Ox (%): 91 - Physical Exam General: Oriented x3, Moderate distress, Obese HEENT: Atraumatic, PERRLA, EOMI Neck: Supple, JVD not distended Respiratory: Diminished Cardiovascular: Regular rate/rhythm, Normal S1 S2 Gastrointestinal: Normal bowel sounds, No tenderness Musculoskeletal: No tenderness Integumentary: No rashes Neurological: Normal speech, Normal tone, Normal affect Lymphatics: No axilla or inguinal lymphadenopathy - Studies Microbiology Data (last 24 hrs): 01/13/21 16:27 Blood - Blood Aerobic Blood Culture - Final No growth in 5 days. 01/13/21 16:27 Blood - Blood Anaerobic Blood Culture - Final No growth in 5 days. 01/13/21 16:36 Blood - Blood Aerobic Blood Culture - Final No growth in 5 days. 01/13/21 16:36 Blood - Blood Anaerobic Blood Culture - Final No growth in 5 days. Medications List Reviewed: Yes Assessment And Plan - Current Problems (Diagnosis) (1) Pneumonia due to 2019 novel coronavirus Current Visit: Yes Status: Acute Plan: WE ARE FOLLOWING MASK 2 PROTOCOL FOR COVID IV HIGH DOSE STEROIDS. IVERMECTIN PO EVERY OTHER DAY. XARELTO PO DAILY. REMDESIVIR DAILY IV. HIGH ARIEL OXYGEN PROGNOSIS GUARDED. ADD FLONASE AND ASTELIN FOR NASAL CONGESTION. SHE IS STILL VERY HYPOXIC BUT CXR HAS IMPROVING AND SO I AM OPTIMISTIC.
[2021-01-19] MEDS: ACETAMINOPHEN 500 MG TAB PO PRN ×3 (03:31→15:48)
[2021-01-19] MEDS: GUAIFENESIN/DM 5 ML UCUP PO PRN ×4 (03:31→23:20)
[2021-01-19] MEDS: AZELASTINE NASAL SPRAY 30 ML NAS SCH ×2 (09:00→19:43)
[2021-01-19] MEDS: FLUTICASONE 50MCG NASAL SPRAY NAS SCH ×2 (09:00→19:44)
[2021-01-19] MEDS: ASPIRIN EC 81 MG TAB PO SCH (09:59)
[2021-01-19] MEDS: METHYLPREDNISOLONE 125 MG INJ IV SCH ×2 (09:59→19:44)
--- NOTE | 2021-01-19 12:03 | P.PN ---
Subjective Date of Service: 01/19/21 Chief Complaint: Respiratory failure No change still very short of breath patient developed subcutaneous emphysema come neck pain Review of Systems General: Weakness Respiratory: Shortness of Breath Physical Examination - Vital Signs Temperature: 97.1 F Blood Pressure: 144/67 Pulse: 54 Respirations: 24 Pulse Ox (%): 90 - Physical Exam General: Alert, Moderate distress Cardiovascular: No edema, Normal S1 S2 - Studies Microbiology Data (last 24 hrs): 01/13/21 16:27 Blood - Blood Aerobic Blood Culture - Final No growth in 5 days. 01/13/21 16:27 Blood - Blood Anaerobic Blood Culture - Final No growth in 5 days. 01/13/21 16:36 Blood - Blood Aerobic Blood Culture - Final No growth in 5 days. 01/13/21 16:36 Blood - Blood Anaerobic Blood Culture - Final No growth in 5 days. Medications List Reviewed: Yes Assessment & Plan - Problems (Diagnosis) (1) Pneumonia due to 2019 novel coronavirus Current Visit: Yes Status: Acute Plan: Respiratory failure and requiring high concentrations of oxygen patient is lot of subcutaneous emphysema continue to monitor resume steroid
[2021-01-19] MEDS: RIVAROXABAN 20 MG TABLET PO SCH (15:49)
[2021-01-19] MEDS: CEFTRIAXONE/SWI 1gm 1 GM/10 ML SYR IV SCH ×2 (17:24→19:45)
--- NOTE | 2021-01-19 18:40 | RAD REPORT ---
EXAM DESCRIPTION: CT - Soft Tissue Neck W/Contr - 01/19/2021 5:59 pm CLINICAL HISTORY: Neck pain with sore throat COMPARISON: None. TECHNIQUE: Computed axial tomography of the neck was obtained. 50 cc Isovue 300 was administered in travenously. Coronal and sagittal reconstruction was performed. All CT scans are performed using dose optimization technique as appropriate and may include automated exposure control or mA/KV adjustment according to patient size. FINDINGS: Moderate subcutaneous emphysema involves the neck bilaterally. Images of the upper chest d emonstrate pneumomediastinum. A small left apical pneumothorax is visualized. The remainder pharynx, tongue base, larynx and subglottic trachea appear unremarkable The parotid, submandibular and thyroid glands appear unremarkable. No lymphadenopathy is seen The sinuses and mastoids are clear. IMPRESSION: Moderate subcutaneous emphysema within the neck. Pneumomediastinum. Small left apical pn eumothorax The examination was discussed with Dr. Osorio at 6:30 p.m. January 19, 2021
[2021-01-19] MEDS: TRAMADOL HCL 50 MG TAB PO PRN (19:47)
--- NOTE | 2021-01-19 20:36 | P.PN ---
Subjective Date of Service: 01/19/21 Chief Complaint: Respiratory failure Subjective: New changes NASAL CONGESTION, AND COUGH. SHE IS STILL VERY CONGESTED BY HER CXR HAS IMPROVED. SHE COMPLAINED OF NECK PAIN ON L SIDE TODAY. I ASKED NURSE TO ORDER CT NECK SOFT TISSUE STAT THERE MAY BE AN ABSCESS OR SO BUT ACTUALLY SHE HAS SUBCUTANEOUS EMPHYSEMA, SMALL APICAL PNEUMOTHORAX AND PNEUMOMEDIASTINUM. Physical Examination - Vital Signs Temperature: 97.2 F Blood Pressure: 127/68 Pulse: 72 Respirations: 37 Pulse Ox (%): 90 - Physical Exam General: Oriented x3, Moderate distress, Obese Respiratory: Other (ACCESORY MUSCLES AT WORK.) Cardiovascular: Regular rate/rhythm - Studies Microbiology Data (last 24 hrs): 01/13/21 16:27 Blood - Blood Aerobic Blood Culture - Final No growth in 5 days. 01/13/21 16:27 Blood - Blood Anaerobic Blood Culture - Final No growth in 5 days. 01/13/21 16:36 Blood - Blood Aerobic Blood Culture - Final No growth in 5 days. 01/13/21 16:36 Blood - Blood Anaerobic Blood Culture - Final No growth in 5 days. Medications List Reviewed: Yes Assessment And Plan - Current Problems (Diagnosis) (1) Pneumonia due to 2019 novel coronavirus Current Visit: Yes Status: Acute Plan: WE ARE FOLLOWING MASK 2 PROTOCOL FOR COVID IV HIGH DOSE STEROIDS. IVERMECTIN PO EVERY OTHER DAY. XARELTO PO DAILY. REMDESIVIR DAILY IV. HIGH ARIEL OXYGEN PROGNOSIS GUARDED. ADD FLONASE AND ASTELIN FOR NASAL CONGESTION. SHE IS STILL VERY HYPOXIC BUT CXR HAS IMPROVING AND SO I AM OPTIMISTIC. (2) Acute pneumothorax Current Visit: Yes Status: Acute Plan: THIS IS A COMPLICATION OR COVID. THIS IS ACUTE WORSENING. HOPEFULLY SHE RECOVERS. PROGNOSIS IS WORSE. I CALLED DAUGHTER AND INFORMED HER OF NEW FINDING. (3) Pneumomediastinum Current Visit: Yes Status: Acute (4) Subcutaneous emphysema Current Visit: Yes Status: Acute
[2021-01-19] MEDS ORDERED: CEFTRIAXONE 1 GM/NS 50 ML 1 GM/50 ML BAG IV SCH (21:00)
[2021-01-20] MEDS: TRAMADOL HCL 50 MG TAB PO PRN ×3 (03:09→22:40)
[2021-01-20 05:11] LABS: Absolute Lymphocytes (CBC) 0.5 K/uL (0.7-4.9); Basophils % 0.2 % (0-1.3); MPV 9.3 fL (7.6-11.3); RBC Red Blood Cell Count 4.11 M/uL (3.86-4.86)
[2021-01-20 05:21] LABS: Potassium 4.8 mmol/L (3.5-5.1)
[2021-01-20 05:46] LABS: Blood Morphology Comment NOT SEEN (NOT SEEN); Platelet Estimate ADEQ
[2021-01-20] MEDS: ONDANSETRON 4 MG/2 ML VIAL IV PRN (08:02)
[2021-01-20] MEDS: ACETAMINOPHEN 500 MG TAB PO PRN (08:02)
[2021-01-20] MEDS: GUAIFENESIN/DM 5 ML UCUP PO PRN ×2 (08:02→13:55)
[2021-01-20] MEDS: ASPIRIN EC 81 MG TAB PO SCH (08:03)
[2021-01-20] MEDS: METHYLPREDNISOLONE 125 MG INJ IV SCH ×3 (08:03→20:26)
[2021-01-20] MEDS: AZELASTINE NASAL SPRAY 30 ML NAS SCH ×2 (08:04→20:54)
[2021-01-20] MEDS: FLUTICASONE 50MCG NASAL SPRAY NAS SCH ×2 (08:04→20:54)
[2021-01-20 11:10] LABS: Arterial Blood Carboxyhemoglob 0.7 % (0-1.5); Blood Gas Oxyhemoglobin 89.2 % (94-97); Blood O2 Saturation 90.8 % (92-98.5)
--- NOTE | 2021-01-20 14:13 | P.PN ---
Subjective Date of Service: 01/20/21 Chief Complaint: Respiratory failure Subjective: Improving NASAL CONGESTION, AND COUGH. SHE IS STILL VERY CONGESTED BY HER CXR HAS IMPROVED. SHE COMPLAINED OF NECK PAIN ON L SIDE TODAY. I ASKED NURSE TO ORDER CT NECK SOFT TISSUE STAT THERE MAY BE AN ABSCESS OR SO BUT ACTUALLY SHE HAS SUBCUTANEOUS EMPHYSEMA, SMALL APICAL PNEUMOTHORAX AND PNEUMOMEDIASTINUM. ADAM IS STABLE, WEAK AND STILL HAS PAIN ON NECK AREA. Review of Systems 10-point ROS is otherwise unremarkable General: Weakness, Malaise Respiratory: Shortness of Breath Physical Examination - Vital Signs Temperature: 97.3 F Blood Pressure: 139/63 Pulse: 60 Respirations: 22 Pulse Ox (%): 94 - Physical Exam General: Moderate distress, Obese HEENT: Atraumatic, PERRLA, EOMI Neck: Supple, JVD not distended Respiratory: Diminished Cardiovascular: Regular rate/rhythm, Normal S1 S2 Gastrointestinal: Normal bowel sounds, No tenderness Musculoskeletal: No tenderness Integumentary: No rashes Neurological: Normal speech, Normal tone, Normal affect Lymphatics: No axilla or inguinal lymphadenopathy - Studies Medications List Reviewed: Yes Assessment And Plan - Current Problems (Diagnosis) (1) Pneumonia due to 2019 novel coronavirus Current Visit: Yes Status: Acute Plan: WE ARE FOLLOWING MASK 2 PROTOCOL FOR COVID IV HIGH DOSE STEROIDS. IVERMECTIN PO EVERY OTHER DAY. XARELTO PO DAILY. REMDESIVIR DAILY IV. HIGH ARIEL OXYGEN PROGNOSIS GUARDED. ADD FLONASE AND ASTELIN FOR NASAL CONGESTION. SHE IS STILL VERY HYPOXIC BUT CXR HAS IMPROVING AND SO I AM OPTIMISTIC. PO2 OF 60% ON 100% NRB PNEUMOTHORAX CREATS POOR PRGNOSIS. I TALKED TO DAUGHTER LAST NIGHT AND EXPLAINED. NOT MUCH CAN BE ADDED TO THERAPY. (2) Acute pneumothorax Current Visit: Yes Status: Acute Plan: THIS IS A COMPLICATION OR COVID. THIS IS ACUTE WORSENING. HOPEFULLY SHE RECOVERS. PROGNOSIS IS WORSE. I CALLED DAUGHTER AND INFORMED HER OF NEW FINDING. (3) Pneumomediastinum Current Visit: Yes Status: Acute (4) Subcutaneous emphysema Current Visit: Yes Status: Acute
--- NOTE | 2021-01-20 15:20 | RAD REPORT ---
EXAM DESCRIPTION: RAD - Chest Single View - 01/20/2021 2:40 pm CLINICAL HISTORY: Pneumomediastinum Chest pain. COMPARISON: Chest Single View dated 01/17/2021; Chest Single View dated 01/13/2021; CHEST SINGLE VIEW d ated 09/15/2015; Soft Tissue Neck W/Contr dated 01/19/2021 FINDINGS: Portable technique limits examination quality. Bilateral pulmonary opacities appear similar to the comparative study. Small left apical pneumothorax is present estimated 10% of lung volume. Pneumomediastinum and subcutaneous emphysema is present, sm all to moderate volume.Heart size is upper normal.
[2021-01-20] MEDS: RIVAROXABAN 20 MG TABLET PO SCH (17:16)
[2021-01-20] MEDS: JUVEN PACKET PO SCH ×2 (20:25→20:55)
[2021-01-20] MEDS: CEFTRIAXONE/SWI 1gm 1 GM/10 ML SYR IV SCH (20:26)
[2021-01-21] MEDS: JUVEN PACKET PO SCH ×2 (09:00→22:05)
[2021-01-21] MEDS: VENLAFAXINE HCL XR 37.5MG CAP PO SCH (09:22)
[2021-01-21] MEDS: CEFTRIAXONE/SWI 1gm 1 GM/10 ML SYR IV SCH ×2 (09:23→22:05)
[2021-01-21] MEDS: ASPIRIN EC 81 MG TAB PO SCH (09:23)
[2021-01-21] MEDS: GUAIFENESIN/DM 5 ML UCUP PO PRN (09:23)
[2021-01-21] MEDS: METHYLPREDNISOLONE 125 MG INJ IV SCH ×2 (09:25→22:05)
[2021-01-21] MEDS: FLUTICASONE 50MCG NASAL SPRAY NAS SCH ×2 (09:26→21:00)
[2021-01-21] MEDS: AZELASTINE NASAL SPRAY 30 ML NAS SCH ×2 (09:26→21:00)
--- NOTE | 2021-01-21 12:44 | P.PN ---
Subjective Date of Service: 01/21/21 Chief Complaint: Respiratory failure Respiratory failure feeling a little better still less some subcutaneous emphysema still very hypoxic Review of Systems General: Weakness Respiratory: Shortness of Breath Physical Examination - Vital Signs Temperature: 96.8 F Blood Pressure: 129/63 Pulse: 68 Respirations: 22 Pulse Ox (%): 89 - Physical Exam General: Alert, Moderate distress Respiratory: Clear to auscultation bilaterally, Diminished Cardiovascular: No edema, Regular rate/rhythm - Studies Medications List Reviewed: Yes Assessment & Plan - Problems (Diagnosis) (1) Pneumonia due to 2019 novel coronavirus Current Visit: Yes Status: Acute Plan: Respiratory failure from ma virus no evidence of any obvious pneumothorax minimal reported on chest x-ray there has been no progression blood gases satisfactory no change in present medication
[2021-01-21] MEDS: RIVAROXABAN 20 MG TABLET PO SCH (16:34)
[2021-01-21] MEDS: TRAMADOL HCL 50 MG TAB PO PRN ×2 (17:49→23:34)
--- NOTE | 2021-01-21 21:59 | P.PN ---
Subjective Date of Service: 01/21/21 Chief Complaint: Respiratory failure Subjective: No new changes NASAL CONGESTION, AND COUGH. SHE IS STILL VERY CONGESTED BY HER CXR HAS IMPROVED. SHE COMPLAINED OF NECK PAIN ON L SIDE TODAY. I ASKED NURSE TO ORDER CT NECK SOFT TISSUE STAT THERE MAY BE AN ABSCESS OR SO BUT ACTUALLY SHE HAS SUBCUTANEOUS EMPHYSEMA, SMALL APICAL PNEUMOTHORAX AND PNEUMOMEDIASTINUM. ADAM IS STABLE, WEAK AND STILL HAS PAIN ON NECK AREA. STABLE BUT STILL VERY HYPOXIC. SHE IS IN MILD DISTRESS IN SITTING POSITION. Physical Examination - Vital Signs Temperature: 97.0 F Blood Pressure: 120/59 Pulse: 72 Respirations: 20 Pulse Ox (%): 87 - Physical Exam General: Oriented x3, Moderate distress, Obese HEENT: Atraumatic, PERRLA, EOMI Neck: Supple, JVD not distended Cardiovascular: Regular rate/rhythm, Normal S1 S2 Gastrointestinal: Normal bowel sounds, No tenderness Musculoskeletal: No tenderness Integumentary: No rashes Neurological: Normal speech, Normal tone, Normal affect Lymphatics: No axilla or inguinal lymphadenopathy - Studies Medications List Reviewed: Yes Assessment And Plan - Current Problems (Diagnosis) (1) Pneumonia due to 2019 novel coronavirus Current Visit: Yes Status: Acute Plan: WE ARE FOLLOWING MASK 2 PROTOCOL FOR COVID IV HIGH DOSE STEROIDS. IVERMECTIN PO EVERY OTHER DAY. XARELTO PO DAILY. REMDESIVIR DAILY IV. HIGH ARIEL OXYGEN PROGNOSIS GUARDED. ADD FLONASE AND ASTELIN FOR NASAL CONGESTION. SHE IS STILL VERY HYPOXIC BUT CXR HAS IMPROVING AND SO I AM OPTIMISTIC. PO2 OF 60% ON 100% NRB PNEUMOTHORAX CREATS POOR PRGNOSIS. I TALKED TO DAUGHTER LAST NIGHT AND EXPLAINED. NOT MUCH CAN BE ADDED TO THERAPY. (2) Acute pneumothorax Current Visit: Yes Status: Acute Plan: THIS IS A COMPLICATION OR COVID. THIS IS ACUTE WORSENING. HOPEFULLY SHE RECOVERS. PROGNOSIS IS WORSE. I CALLED DAUGHTER AND INFORMED HER OF NEW FINDING. CLINICALLY STABLE. SHE WAS NOT EATING MUCH. I ASKED HER TO GET MORALES PROTEIN LIQUID (3) Pneumomediastinum Current Visit: Yes Status: Acute (4) Subcutaneous emphysema Current Visit: Yes Status: Acute (5) Depressed Current Visit: Yes Status: Acute Plan: VENLAFAXINE 37.5 MG DAILY TO START WITH. Qualifiers: Depression Type: reactive depression Qualified Code(s): F32.9 - Major depressive disorder, single episode, unspecified
[2021-01-21] MEDS: ENSURE HIGH PROTEIN 237 ML CAN PO SCH (22:05)
[2021-01-22] MEDS: VENLAFAXINE HCL XR 37.5MG CAP PO SCH (07:52)
[2021-01-22] MEDS: CEFTRIAXONE/SWI 1gm 1 GM/10 ML SYR IV SCH ×2 (07:52→20:09)
[2021-01-22] MEDS: METHYLPREDNISOLONE 125 MG INJ IV SCH ×2 (07:59→20:09)
[2021-01-22] MEDS: ENSURE HIGH PROTEIN 237 ML CAN PO SCH ×2 (07:59→20:10)
[2021-01-22] MEDS: JUVEN PACKET PO SCH ×2 (07:59→20:10)
[2021-01-22] MEDS: AZELASTINE NASAL SPRAY 30 ML NAS SCH ×2 (08:01→20:10)
[2021-01-22] MEDS: FLUTICASONE 50MCG NASAL SPRAY NAS SCH ×2 (08:01→20:10)
[2021-01-22] MEDS: ASPIRIN EC 81 MG TAB PO SCH (08:01)
--- NOTE | 2021-01-22 11:03 | RAD REPORT ---
EXAM DESCRIPTION: [facility] Single View01/22/2021 10:56 am CLINICAL HISTORY: Shortness of breath COMPARISON: January 20 FINDINGS: The left pneumothorax has increased in size and is small to moderate. Mild worsening in the bilateral pulmonary opacities. Pneumomediastinum and subcutaneous emphysema is either stable or diminished IMPRESSION: Small to moderate left pneumothorax increased in size. Examination was discussed with Jade Osorio 11 a.m. January 22, 2021
[2021-01-22] MEDS: TRAMADOL HCL 50 MG TAB PO PRN ×2 (12:48→19:38)
--- NOTE | 2021-01-22 14:40 | P.OP ---
Preoperative diagnosis: LEFT Pneumothorax Postoperative diagnosis: LEFT Pneumothorax Primary procedure: Placement of LEFT Thoracostomy Tube Anesthesia: 1 % lidocaine used Estimated blood loss: <5cc Specimen: none Findings: tidaling of pneumevac system Complications: None Drain(s): Other (16 Fr THAL chest tube) Transferred to: Other (room) Condition: Good
--- NOTE | 2021-01-22 16:33 | RAD REPORT ---
EXAM DESCRIPTION: RAD - Chest Single View - 01/22/2021 3:24 pm CLINICAL HISTORY: LEFT chest tube placed Chest pain. COMPARISON: Chest Single View dated 01/22/2021; Chest Single View dated 01/20/2021; Chest Single View da ivelisse 01/17/2021; Chest Single View dated 01/13/2021 FINDINGS: Portable technique limits examination quality. Moderate bilateral pulmonary opacities are present. A left-sided chest tube has been in place decompr essing the previously noted pneumothorax. A small apical pneumothorax persists estimated at 5% of hakeem g volume or mass. The heart is mildly enlarged in size.
--- NOTE | 2021-01-22 16:36 | EKG ---
Test Date: 2021-01-22 Test Time: 12:51:21 Internship Coordinator: CRISTOBAL MEASUREMENT RESULTS: Intervals: Rate: 83 IL: 106 QRSD: 72 QT: 372 QTc: 437 [place]: P: 62 IL: 106 QRS: 37 T: 61 INTERPRETIVE STATEMENTS: Sinus rhythm with short IL Otherwise normal ECG Compared to ECG 01/13/2021 16:47:44 Short IL interval now present Sinus tachycardia no longer present Electronically Signed On 01-22-21 16:35:54 CDT by Mich Galloway
[2021-01-22] MEDS: RIVAROXABAN 20 MG TABLET PO SCH ×2 (16:37→16:42)
--- NOTE | 2021-01-22 21:54 | P.PN ---
Subjective Date of Service: 01/22/21 Chief Complaint: Respiratory failure Subjective: Worsening NASAL CONGESTION, AND COUGH. SHE IS STILL VERY CONGESTED BY HER CXR HAS IMPROVED. SHE COMPLAINED OF NECK PAIN ON L SIDE TODAY. I ASKED NURSE TO ORDER CT NECK SOFT TISSUE STAT THERE MAY BE AN ABSCESS OR SO BUT ACTUALLY SHE HAS SUBCUTANEOUS EMPHYSEMA, SMALL APICAL PNEUMOTHORAX AND PNEUMOMEDIASTINUM. ADAM IS STABLE, WEAK AND STILL HAS PAIN ON NECK AREA. STABLE BUT STILL VERY HYPOXIC. SHE IS IN MILD DISTRESS IN SITTING POSITION. SHE IS COMFORTABLE BUT HAS LOWER OXYGEN SAT. I ORDERED CXR AGAIN THAT SHOWED WORSE PTX. I CALLED .DR REDMAN AND HE HAD DR. MCCLELLAND DO CHEST TUBE. Physical Examination - Vital Signs Temperature: 97.3 F Blood Pressure: 142/69 Pulse: 76 Respirations: 22 Pulse Ox (%): 85 - Studies Medications List Reviewed: Yes Assessment And Plan - Current Problems (Diagnosis) (1) Pneumonia due to 2019 novel coronavirus Current Visit: Yes Status: Acute Plan: WE ARE FOLLOWING MASK 2 PROTOCOL FOR COVID IV HIGH DOSE STEROIDS. IVERMECTIN PO EVERY OTHER DAY. XARELTO PO DAILY. REMDESIVIR DAILY IV. HIGH ARIEL OXYGEN PROGNOSIS GUARDED. ADD FLONASE AND ASTELIN FOR NASAL CONGESTION. SHE IS STILL VERY HYPOXIC BUT CXR HAS IMPROVING AND SO I AM OPTIMISTIC. PO2 OF 60% ON 100% NRB PNEUMOTHORAX CREATS POOR PRGNOSIS. I TALKED TO DAUGHTER LAST NIGHT AND EXPLAINED. NOT MUCH CAN BE ADDED TO THERAPY. (2) Acute pneumothorax Current Visit: Yes Status: Acute Plan: THIS IS A COMPLICATION OR COVID. THIS IS ACUTE WORSENING. HOPEFULLY SHE RECOVERS. PROGNOSIS IS WORSE. I CALLED DAUGHTER AND INFORMED HER OF NEW FINDING. CLINICALLY STABLE. SHE WAS NOT EATING MUCH. I ASKED HER TO GET MORALES PROTEIN LIQUID CHEST TUBE. POOR PROGNOSTIC FACTOR. (3) Pneumomediastinum Current Visit: Yes Status: Acute (4) Subcutaneous emphysema Current Visit: Yes Status: Acute (5) Depressed Current Visit: Yes Status: Acute Plan: VENLAFAXINE 37.5 MG DAILY TO START WITH. Qualifiers: Depression Type: reactive depression Qualified Code(s): F32.9 - Major depressive disorder, single episode, unspecified
[2021-01-23] MEDS: TRAMADOL HCL 50 MG TAB PO PRN ×3 (04:39→20:38)
[2021-01-23] MEDS: ASPIRIN EC 81 MG TAB PO SCH (07:58)
[2021-01-23] MEDS: CEFTRIAXONE/SWI 1gm 1 GM/10 ML SYR IV SCH ×2 (07:58→20:38)
[2021-01-23] MEDS: METHYLPREDNISOLONE 125 MG INJ IV SCH ×2 (07:58→20:38)
[2021-01-23] MEDS: VENLAFAXINE HCL XR 37.5MG CAP PO SCH (07:59)
[2021-01-23] MEDS: ENSURE HIGH PROTEIN 237 ML CAN PO SCH ×2 (08:00→20:39)
[2021-01-23] MEDS: FLUTICASONE 50MCG NASAL SPRAY NAS SCH ×2 (08:00→20:40)
[2021-01-23] MEDS: AZELASTINE NASAL SPRAY 30 ML NAS SCH ×2 (08:00→20:40)
[2021-01-23] MEDS: JUVEN PACKET PO SCH ×2 (08:00→20:39)
--- NOTE | 2021-01-23 10:03 | P.PN ---
Subjective Date of Service: 01/23/21 Chief Complaint: Respiratory failure Subjective: Improving (mild improvement with chest tube, but remains on positive pressure support.) Physical Examination - Vital Signs Temperature: 98.4 F Blood Pressure: 153/81 Pulse: 66 Respirations: 22 Pulse Ox (%): 85 - Physical Exam General: Alert, Cooperative Respiratory: Other (LEFT Chest tube in place, tidaling well, no air leak) - Studies Medications List Reviewed: Yes Assessment And Plan - Current Problems (Diagnosis) (1) Acute pneumothorax Current Visit: Yes Status: Acute Plan: - continue daily chest x-rays - continue medical management
[2021-01-23] MEDS: ALPRAZOLAM 0.25 MG TABLET PO PRN (12:01)
[2021-01-23] MEDS: GUAIFENESIN/DM 5 ML UCUP PO PRN (12:01)
--- NOTE | 2021-01-23 12:22 | RAD REPORT ---
EXAM DESCRIPTION: [facility] Single View01/23/2021 10:42 am CLINICAL HISTORY: Chest tube placement COMPARISON: January 22 FINDINGS: Left chest tube in place. A small left pneumothorax. No significant change in the bilateral pulmonary opacities, pneumomediastinum and all subcutaneous em physema Curvilinear density overlies the right upper hemithorax IMPRESSION: Left chest tube in place with small pneumothorax Curvilinear density overlies the right upper hemithorax. This could indicate a small pneumothorax or overlying skin fold and be monitored on a subsequent exam
[2021-01-23] MEDS: RIVAROXABAN 20 MG TABLET PO SCH (17:07)
--- NOTE | 2021-01-23 20:26 | OP ---
Date of Procedure: 01/22/2021 Surgeon: Oscar Lehman MD, Preoperative Diagnosis: Left pneumothorax. Postoperative Diagnosis: Left pneumothorax. Procedure Performed: Placement of a left Thal thoracostomy tube. Anesthesia: 1% lidocaine used. Estimated Blood Loss: Less than 5 cc. Specimen: None. Findings: Tidaling of the tube was noted and air was encountered upon entry to the thoracic space. Complications: None. Drains: A 16-Croatian Thal chest tube was left in left thoracic space. The patient remained in the room in good condition throughout the procedure. Procedure In Detail: After informed consent was obtained, the patient was prepped and draped in the usual sterile fashion after adequate anesthesia was achieved. I anesthetized the area overlying the skin on the left fifth and sixth intercostal space on the midaxillary line. I then made a small libby incision in the skin overlying this area and advanced a finer needle into the thoracic space over the rib. At this point, air was encountered as I had fluid in the syringe. When the bubbling occurred, I then removed the syringe and advanced the wire through the introducer needle and removed the needle at this point. The wire was in good position. I then enlarged the incision slightly to allow for the chest tube and I performed sequential dilatation using Seldinger technique over the wire and placed the 16-Croat[place] Thal chest tube with the introducer sheath into the left thoracic space without evidence of complication directing us cranially. At this point, I removed the inner sheath and the guidewire and hooked the chest tube to the Pleur-EVAC system and tattling were noted on the Pleur-EVAC system consistent with appropriate positioning of the chest tube. At this point, I secured the chest tube to the overlying skin using a 2-0 nylon suture and placed a sterile dressing over the top. The patient tolerated the procedure well without evidence of complication, remained in the room throughout the procedure in good condition. All counts were correct at the end of the case. POLO/TRICE Voice ID: [id number] Report ID: [id number] GABRIELA
--- NOTE | 2021-01-23 20:57 | P.PN ---
Subjective Date of Service: 01/23/21 Chief Complaint: Respiratory failure Nc. STill requiring high conc of O2, No air leak Physical Examination - Vital Signs Temperature: 97.1 F Blood Pressure: 149/86 Pulse: 76 Respirations: 20 Pulse Ox (%): 90 - Physical Exam General: Alert, Moderate distress Respiratory: Clear to auscultation bilaterally, Diminished - Studies Medications List Reviewed: Yes Assessment & Plan - Problems (Diagnosis) (1) Pneumonia due to 2019 novel coronavirus Current Visit: Yes Status: Acute Plan: R Resp failure No sig change. CXRY no change . No air leak CT in place LAbs reviewed NE of sepsis DC Rocepin
--- NOTE | 2021-01-23 21:13 | P.PN ---
Subjective Date of Service: 01/23/21 Chief Complaint: Respiratory failure Subjective: Worsening NASAL CONGESTION, AND COUGH. SHE IS STILL VERY CONGESTED BY HER CXR HAS IMPROVED. SHE COMPLAINED OF NECK PAIN ON L SIDE TODAY. I ASKED NURSE TO ORDER CT NECK SOFT TISSUE STAT THERE MAY BE AN ABSCESS OR SO BUT ACTUALLY SHE HAS SUBCUTANEOUS EMPHYSEMA, SMALL APICAL PNEUMOTHORAX AND PNEUMOMEDIASTINUM. ADAM IS STABLE, WEAK AND STILL HAS PAIN ON NECK AREA. STABLE BUT STILL VERY HYPOXIC. SHE IS IN MILD DISTRESS IN SITTING POSITION. SHE IS COMFORTABLE BUT HAS LOWER OXYGEN SAT. I ORDERED CXR AGAIN THAT SHOWED WORSE PTX. I CALLED .DR REDMAN AND HE HAD DR. MCCLELLAND DO CHEST TUBE. SHE SEEMS STABLE BUT HER OXYGENATION IS GETTING WORSE. Review of Systems 10-point ROS is otherwise unremarkable General: Weakness Respiratory: Shortness of Breath Physical Examination - Vital Signs Temperature: 97.1 F Blood Pressure: 149/86 Pulse: 76 Respirations: 20 Pulse Ox (%): 90 - Physical Exam General: Oriented x3, Moderate distress, Obese HEENT: Atraumatic, PERRLA, EOMI Neck: Supple Respiratory: Diminished Cardiovascular: Regular rate/rhythm, Normal S1 S2 Gastrointestinal: Normal bowel sounds, No tenderness Musculoskeletal: No tenderness Integumentary: No rashes Neurological: Normal speech, Normal tone, Normal affect Lymphatics: No axilla or inguinal lymphadenopathy - Studies Medications List Reviewed: Yes Assessment And Plan - Current Problems (Diagnosis) (1) Pneumonia due to 2019 novel coronavirus Current Visit: Yes Status: Acute Plan: WE ARE FOLLOWING MASK 2 PROTOCOL FOR COVID IV HIGH DOSE STEROIDS. IVERMECTIN PO EVERY OTHER DAY. XARELTO PO DAILY. REMDESIVIR DAILY IV. HIGH ARIEL OXYGEN PROGNOSIS GUARDED. ADD FLONASE AND ASTELIN FOR NASAL CONGESTION. SHE IS STILL VERY HYPOXIC BUT CXR HAS IMPROVING AND SO I AM OPTIMISTIC. PO2 OF 60% ON 100% NRB PNEUMOTHORAX CREATS POOR PRGNOSIS. I TALKED TO DAUGHTER LAST NIGHT AND EXPLAINED. NOT MUCH CAN BE ADDED TO THERAPY. (2) Acute pneumothorax Current Visit: Yes Status: Acute Plan: THIS IS A COMPLICATION OR COVID. THIS IS ACUTE WORSENING. HOPEFULLY SHE RECOVERS. PROGNOSIS IS WORSE. I CALLED DAUGHTER AND INFORMED HER OF NEW FINDING. CLINICALLY STABLE. SHE WAS NOT EATING MUCH. I ASKED HER TO GET MORALES PROTEIN LIQUID CHEST TUBE. POOR PROGNOSTIC FACTOR. HYPOXIA IS WORSE. HOPEFULLY SHE IS ABLE TO RECOVER. (3) Pneumomediastinum Current Visit: Yes Status: Acute (4) Subcutaneous emphysema Current Visit: Yes Status: Acute (5) Depressed Current Visit: Yes Status: Acute Plan: VENLAFAXINE 37.5 MG DAILY TO START WITH. Qualifiers: Depression Type: reactive depression Qualified Code(s): F32.9 - Major depressive disorder, single episode, unspecified
[2021-01-24] MEDS: TRAMADOL HCL 50 MG TAB PO PRN (04:47)
[2021-01-24] MEDS: ASPIRIN EC 81 MG TAB PO SCH (08:06)
[2021-01-24] MEDS: GUAIFENESIN/DM 5 ML UCUP PO PRN (08:06)
[2021-01-24] MEDS: VENLAFAXINE HCL XR 37.5MG CAP PO SCH (08:07)
[2021-01-24] MEDS: FLUTICASONE 50MCG NASAL SPRAY NAS SCH ×2 (08:07→20:48)
[2021-01-24] MEDS: JUVEN PACKET PO SCH ×4 (08:07→21:00)
[2021-01-24] MEDS: METHYLPREDNISOLONE 125 MG INJ IV SCH ×2 (08:07→20:46)
[2021-01-24] MEDS: AZELASTINE NASAL SPRAY 30 ML NAS SCH ×2 (08:07→20:48)
[2021-01-24] MEDS: ENSURE HIGH PROTEIN 237 ML CAN PO SCH ×3 (08:07→21:00)
[2021-01-24] MEDS: CEFTRIAXONE/SWI 1gm 1 GM/10 ML SYR IV SCH ×2 (08:07→20:47)
[2021-01-24] MEDS: ALPRAZOLAM 0.25 MG TABLET PO PRN ×3 (08:07→18:36)
--- NOTE | 2021-01-24 09:06 | RAD REPORT ---
[facility] 8[facility]50 am CLINICAL HISTORY: Chest tube COMPARISON: January 23, 2021 FINDINGS: Left chest tube remains in place. Pneumothorax is not seen. No significant change in the bilateral pulmonary opacities. A right pneumothorax is not visualized. Small pleural effusions
--- NOTE | 2021-01-24 14:59 | P.PN ---
Subjective Date of Service: 01/24/21 Chief Complaint: Respiratory failure Subjective: Improving (patient remains on positive pressure ventilation) Physical Examination - Vital Signs Temperature: 98.2 F Blood Pressure: 140/67 Pulse: 87 Respirations: 22 Pulse Ox (%): 88 - Physical Exam General: Alert, In no apparent distress, Cooperative Respiratory: Diminished, Other (LEFT chest tube in place,no air leak) - Studies Medications List Reviewed: Yes Assessment And Plan - Current Problems (Diagnosis) (1) Acute pneumothorax Current Visit: Yes Status: Acute Plan: - continue daily chest x-rays - continue medical management - chest tube to water seal today, chest x ray in 6 hours and in AM - likely keep chest tube while on positive pressure ventilation
[2021-01-24] MEDS: RIVAROXABAN 20 MG TABLET PO SCH (17:48)
--- NOTE | 2021-01-24 18:08 | RAD REPORT ---
EXAM DESCRIPTION: RAD - Chest Single View - 01/24/2021 6:02 pm CLINICAL HISTORY: recheck pneumothorax Chest pain. COMPARISON: Chest Single View dated 01/24/2021; Chest Single View dated 01/23/2021; Chest Single View da ivelisse 01/22/2021; Chest Single View dated 01/22/2021; Soft Tissue Neck W/Contr dated 01/19/2021 FINDINGS: Portable technique limits examination quality. Left chest tube remains in place. No measurable pneumothorax is seen. Moderate bilateral pulmonary op acities are stable. The heart is upper limit normal in size. No displaced fractures. IMPRESSION: No measurable pneumothorax.
--- NOTE | 2021-01-24 20:48 | P.PN ---
Subjective Date of Service: 01/24/21 Chief Complaint: Respiratory failure Subjective: No new changes NASAL CONGESTION, AND COUGH. SHE IS STILL VERY CONGESTED BY HER CXR HAS IMPROVED. SHE COMPLAINED OF NECK PAIN ON L SIDE TODAY. I ASKED NURSE TO ORDER CT NECK SOFT TISSUE STAT THERE MAY BE AN ABSCESS OR SO BUT ACTUALLY SHE HAS SUBCUTANEOUS EMPHYSEMA, SMALL APICAL PNEUMOTHORAX AND PNEUMOMEDIASTINUM. ADAM IS STABLE, WEAK AND STILL HAS PAIN ON NECK AREA. STABLE BUT STILL VERY HYPOXIC. SHE IS IN MILD DISTRESS IN SITTING POSITION. SHE IS COMFORTABLE BUT HAS LOWER OXYGEN SAT. I ORDERED CXR AGAIN THAT SHOWED WORSE PTX. I CALLED .DR REDMAN AND HE HAD DR. MCCLELLAND DO CHEST TUBE. SHE SEEMS STABLE BUT HER OXYGENATION IS GETTING WORSE. STILL VERY WEAK AND HYPOXIC. NOT RECOVERING FROM SEVERE COVID. Physical Examination - Vital Signs Temperature: 98.4 F Blood Pressure: 141/93 Pulse: 76 Respirations: 22 Pulse Ox (%): 89 - Physical Exam General: Oriented x3, Moderate distress, Severe distress, Obese HEENT: Atraumatic, PERRLA, EOMI Neck: Supple, JVD not distended Cardiovascular: Regular rate/rhythm, Normal S1 S2 Gastrointestinal: Normal bowel sounds, No tenderness Musculoskeletal: No tenderness Integumentary: No rashes Neurological: Normal speech, Normal tone, Normal affect Lymphatics: No axilla or inguinal lymphadenopathy - Studies Medications List Reviewed: Yes Assessment And Plan - Current Problems (Diagnosis) (1) Pneumonia due to 2019 novel coronavirus Current Visit: Yes Status: Acute Plan: WE ARE FOLLOWING MASK 2 PROTOCOL FOR COVID IV HIGH DOSE STEROIDS. IVERMECTIN PO EVERY OTHER DAY. XARELTO PO DAILY. REMDESIVIR DAILY IV. HIGH ARIEL OXYGEN PROGNOSIS GUARDED. ADD FLONASE AND ASTELIN FOR NASAL CONGESTION. SHE IS STILL VERY HYPOXIC BUT CXR HAS IMPROVING AND SO I AM OPTIMISTIC. PO2 OF 60% ON 100% NRB PNEUMOTHORAX CREATS POOR PRGNOSIS. I TALKED TO DAUGHTER LAST NIGHT AND EXPLAINED. NOT MUCH CAN BE ADDED TO THERAPY. (2) Acute pneumothorax Current Visit: Yes Status: Acute Plan: THIS IS A COMPLICATION OR COVID. THIS IS ACUTE WORSENING. HOPEFULLY SHE RECOVERS. PROGNOSIS IS WORSE. I CALLED DAUGHTER AND INFORMED HER OF NEW FINDING. CLINICALLY STABLE. SHE WAS NOT EATING MUCH. I ASKED HER TO GET MORALES PROTEIN LIQUID CHEST TUBE. POOR PROGNOSTIC FACTOR. HYPOXIA IS WORSE. HOPEFULLY SHE IS ABLE TO RECOVER. RESOLVED IN NEW X RAY AFTER CHEST TUBE PLACEMENT. (3) Pneumomediastinum Current Visit: Yes Status: Acute (4) Subcutaneous emphysema Current Visit: Yes Status: Acute (5) Depressed Current Visit: Yes Status: Acute Plan: VENLAFAXINE 37.5 MG DAILY TO START WITH. Qualifiers: Depression Type: reactive depression Qualified Code(s): F32.9 - Major depressive disorder, single episode, unspecified
[2021-01-25 08:58] LABS: BUN Blood Urea Nitrogen 35 mg/dL (7-18); Bicarbonate 27 mmol/L (21-32); Glucose Level 203 mg/dL (74-106); Potassium 4.6 mmol/L (3.5-5.1); Sodium Level 138 mmol/L (136-145)
[2021-01-25] MEDS: JUVEN PACKET PO SCH ×4 (09:00→21:40)
[2021-01-25] MEDS: ASPIRIN EC 81 MG TAB PO SCH ×2 (09:00→10:19)
[2021-01-25] MEDS: ENSURE HIGH PROTEIN 237 ML CAN PO SCH ×3 (09:00→21:40)
[2021-01-25] MEDS: FLUTICASONE 50MCG NASAL SPRAY NAS SCH ×2 (09:00→21:00)
[2021-01-25] MEDS: CEFTRIAXONE/SWI 1gm 1 GM/10 ML SYR IV SCH (09:00)
[2021-01-25] MEDS: VENLAFAXINE HCL XR 75 MG CAP PO SCH ×2 (09:00→10:20)
[2021-01-25] MEDS: AZELASTINE NASAL SPRAY 30 ML NAS SCH ×3 (09:00→21:00)
--- NOTE | 2021-01-25 09:20 | RAD REPORT ---
EXAM DESCRIPTION: RAD - Chest Single View - 01/25/2021 8:53 am CLINICAL HISTORY: chest tube COMPARISON: January 24 TECHNIQUE: AP portable chest image was obtained 01/25/2021 8:53 am . FINDINGS: Lung volumes are very low accentuating heart, vasculature and lung markings. Left-side lisset st tube unchanged in positioning. No identifiable pneumothorax. No new or progressive lung parenchymal process suspected. Heart size is stable. No new or enlarging pleural effusion. IMPRESSION: Limited low lung volume examination showing no change in positioning of the chest tube. No identifiable pneumothorax.
[2021-01-25 09:45] LABS: Absolute Lymphocytes (CBC) 0.3 K/uL (0.7-4.9); Basophils % 0.1 % (0-1.3); Hematocrit 40.5 % (36.0-45.0); Lymphocytes % 2.2 % (15.3-44.8); MPV 10.6 fL (7.6-11.3); RBC Red Blood Cell Count 4.51 M/uL (3.86-4.86)
--- NOTE | 2021-01-25 09:45 | P.PN ---
Subjective Date of Service: 01/25/21 Chief Complaint: Respiratory failure No change still on high concentrations of oxygen Review of Systems General: Weakness Physical Examination - Vital Signs Temperature: 97.0 F Blood Pressure: 160/90 Pulse: 91 Respirations: 21 Pulse Ox (%): 87 - Studies Medications List Reviewed: Yes Assessment & Plan - Problems (Diagnosis) (1) Pneumonia due to 2019 novel coronavirus Current Visit: Yes Status: Acute Plan: Respiratory failure no change no air leak chest x-ray no pneumothorax blood pressure mildly elevated still on 100% FiO2 no evidence of sepsis Dc Rocephin at low-dose Lasix significant interstitial changes on chest x-ray ABGs order
[2021-01-25] MEDS: FUROSEMIDE 20 MG/ 2ML VIAL IV SCH (10:19)
[2021-01-25] MEDS: METHYLPREDNISOLONE 125 MG INJ IV SCH ×2 (10:19→21:42)
[2021-01-25] MEDS: ALPRAZOLAM 0.25 MG TABLET PO PRN ×2 (10:30→15:54)
[2021-01-25 10:41] LABS: White Blood Cell Scan OK (OK)
[2021-01-25 10:42] LABS: Blood Morphology Comment NOT SEEN (NOT SEEN); Platelet Estimate ADEQ
[2021-01-25 10:44] LABS: Blood Gas Oxyhemoglobin 86.6 % (94-97); Blood O2 Saturation 88.5 % (92-98.5)
[2021-01-25] MEDS: LORazepam 2 MG/ML VIAL IV PRN ×2 (11:29→22:40)
--- NOTE | 2021-01-25 14:58 | P.PN ---
Subjective Date of Service: 01/25/21 Chief Complaint: Respiratory failure Subjective: Worsening NASAL CONGESTION, AND COUGH. SHE IS STILL VERY CONGESTED BY HER CXR HAS IMPROVED. SHE COMPLAINED OF NECK PAIN ON L SIDE TODAY. I ASKED NURSE TO ORDER CT NECK SOFT TISSUE STAT THERE MAY BE AN ABSCESS OR SO BUT ACTUALLY SHE HAS SUBCUTANEOUS EMPHYSEMA, SMALL APICAL PNEUMOTHORAX AND PNEUMOMEDIASTINUM. ADAM IS STABLE, WEAK AND STILL HAS PAIN ON NECK AREA. STABLE BUT STILL VERY HYPOXIC. SHE IS IN MILD DISTRESS IN SITTING POSITION. SHE IS COMFORTABLE BUT HAS LOWER OXYGEN SAT. I ORDERED CXR AGAIN THAT SHOWED WORSE PTX. I CALLED .DR REDMAN AND HE HAD DR. MCCLELLAND DO CHEST TUBE. SHE SEEMS STABLE BUT HER OXYGENATION IS GETTING WORSE. STILL VERY WEAK AND HYPOXIC. NOT RECOVERING FROM SEVERE COVID. SHE IS MORE AND MORE FATIGUED. MORE HYPOXIC HAD TO BE TRANSFERRED TO ICU. Review of Systems 10-point ROS is otherwise unremarkable General: Weakness, Malaise Physical Examination - Vital Signs Temperature: 98.5 F Blood Pressure: 145/58 Pulse: 87 Respirations: 30 Pulse Ox (%): 87 - Physical Exam General: Oriented x3, Severe distress, Obese Cardiovascular: Regular rate/rhythm - Studies Medications List Reviewed: Yes Assessment And Plan - Current Problems (Diagnosis) (1) Pneumonia due to 2019 novel coronavirus Current Visit: Yes Status: Acute Plan: WE ARE FOLLOWING MASK 2 PROTOCOL FOR COVID IV HIGH DOSE STEROIDS. IVERMECTIN PO EVERY OTHER DAY. XARELTO PO DAILY. REMDESIVIR DAILY IV. HIGH ARIEL OXYGEN PROGNOSIS GUARDED. ADD FLONASE AND ASTELIN FOR NASAL CONGESTION. SHE IS STILL VERY HYPOXIC BUT CXR HAS IMPROVING AND SO I AM OPTIMISTIC. PO2 OF 60% ON 100% NRB PNEUMOTHORAX CREATS POOR PRGNOSIS. I TALKED TO DAUGHTER LAST NIGHT AND EXPLAINED. NOT MUCH CAN BE ADDED TO THERAPY. NOTHING HAS WORKED I BOUGHT A NATURAL FORMULA FOR HER. IF SHE IS WILLING TO SHE CAN TRY THIS NO MEDICINES HAVE WORKED SO FAR. SHE IS TERMINAL. NOT SURE IF ANYTHING WILL WORK. FAMILY IS AWARE OF SERIOUS CONDITION. (2) Acute pneumothorax Current Visit: Yes Status: Acute Plan: THIS IS A COMPLICATION OR COVID. THIS IS ACUTE WORSENING. HOPEFULLY SHE RECOVERS. PROGNOSIS IS WORSE. I CALLED DAUGHTER AND INFORMED HER OF NEW FINDING. CLINICALLY STABLE. SHE WAS NOT EATING MUCH. I ASKED HER TO GET MORALES PROTEIN LIQUID CHEST TUBE. POOR PROGNOSTIC FACTOR. HYPOXIA IS WORSE. HOPEFULLY SHE IS ABLE TO RECOVER. RESOLVED IN NEW X RAY AFTER CHEST TUBE PLACEMENT. (3) Pneumomediastinum Current Visit: Yes Status: Acute (4) Subcutaneous emphysema Current Visit: Yes Status: Acute (5) Depressed Current Visit: Yes Status: Acute Plan: VENLAFAXINE 37.5 MG DAILY TO START WITH. Qualifiers: Depression Type: reactive depression Qualified Code(s): F32.9 - Major depressive disorder, single episode, unspecified
[2021-01-25] MEDS: HYDROMORPHONE HCL 2 MG/ML inj IV PRN (15:54)
[2021-01-25] MEDS: RIVAROXABAN 20 MG TABLET PO SCH (15:54)
[2021-01-25] MEDS: BUSPIRONE HCL 5 MG TABLET PO SCH (21:41)
[2021-01-26] MEDS: JUVEN PACKET PO SCH ×4 (09:00→21:00)
[2021-01-26] MEDS: FLUTICASONE 50MCG NASAL SPRAY NAS SCH ×2 (09:00→21:00)
[2021-01-26] MEDS: AZELASTINE NASAL SPRAY 30 ML NAS SCH ×2 (09:00→21:00)
[2021-01-26] MEDS: ENSURE HIGH PROTEIN 237 ML CAN PO SCH ×3 (09:00→21:00)
--- NOTE | 2021-01-26 09:02 | RAD REPORT ---
EXAM DESCRIPTION: RAD - Chest Single View - 01/26/2021 6:48 am CLINICAL HISTORY: chest tube COMPARISON: Portable January 25 TECHNIQUE: AP portable chest image was obtained 01/26/2021 6:48 am . FINDINGS: Lung volumes remain low. No change in positioning of the left-sided chest tube. No new or enlarging pneumothorax. Anterior pneumothorax can be occult on all patients when using portable imagi ng. Heart and vasculature are stable. No new or progressive lung parenchymal process. No acute bony a bnormality seen. No acute aortic findings suspected. IMPRESSION: Stable chest as detailed.
[2021-01-26] MEDS: FUROSEMIDE 20 MG/ 2ML VIAL IV SCH (09:04)
[2021-01-26] MEDS: METHYLPREDNISOLONE 125 MG INJ IV SCH ×2 (09:04→20:33)
[2021-01-26] MEDS: ASPIRIN EC 81 MG TAB PO SCH (09:06)
[2021-01-26] MEDS: VENLAFAXINE HCL XR 75 MG CAP PO SCH (09:07)
[2021-01-26] MEDS: BUSPIRONE HCL 5 MG TABLET PO SCH ×2 (09:07→20:33)
[2021-01-26] MEDS: LORazepam 2 MG/ML VIAL IV PRN ×3 (10:49→22:36)
[2021-01-26] MEDS: ALPRAZOLAM 0.25 MG TABLET PO PRN (16:11)
[2021-01-26] MEDS: RIVAROXABAN 20 MG TABLET PO SCH (16:11)
--- NOTE | 2021-01-26 19:51 | RAD REPORT ---
EXAM DESCRIPTION: RAD - Abdomen 1 View (KUB) - 01/26/2021 6:28 pm CLINICAL HISTORY: Dobhoff placement FINDINGS: Motion degraded KUB examination shows a feeding tube in place. Tube is looped in the stoma ch. Tip is in the gastric fundus. No abnormal bend or kink.
--- NOTE | 2021-01-26 20:14 | RAD REPORT ---
EXAM DESCRIPTION: RAD - Abdomen 1 View (KUB) - 01/26/2021 7:48 pm CLINICAL HISTORY: dobhoff placement or repositioning COMPARISON: KUB same date FINDINGS: No change in positioning of the feeding tube. Tube remains curled in the stomach with the tip in the gastric fundus.
[2021-01-27] MEDS: LORazepam 2 MG/ML VIAL IV PRN ×2 (04:46→21:14)
[2021-01-27 04:58] LABS: Absolute Lymphocytes (CBC) 0.2 K/uL (0.7-4.9); Basophils % 0.4 % (0-1.3); Hematocrit 38.7 % (36.0-45.0); Lymphocytes % 1.4 % (15.3-44.8); MPV 9.8 fL (7.6-11.3); RBC Red Blood Cell Count 4.27 M/uL (3.86-4.86)
[2021-01-27 05:14] LABS: BUN Blood Urea Nitrogen 41 mg/dL (7-18); Bicarbonate 31 mmol/L (21-32); Glucose Level 262 mg/dL (74-106); Potassium 4.6 mmol/L (3.5-5.1); Sodium Level 139 mmol/L (136-145)
--- NOTE | 2021-01-27 07:33 | P.PN ---
Subjective Date of Service: 01/26/21 Chief Complaint: Respiratory failure Subjective: Worsening SHE IS WEAKER, DYSPNEIC. SHE HAS NO CHEST PAIN. SHE DOES NOT WANT INTUBATION. SHE IS OKAY WITH DOBHOFF FEEDING TUBE. Review of Systems General: Weakness, Malaise Respiratory: Shortness of Breath Physical Examination - Vital Signs Temperature: 97.2 F Blood Pressure: 131/78 Pulse: 102 Respirations: 35 Pulse Ox (%): 88 - Physical Exam General: Severe distress, Obese HEENT: Atraumatic, PERRLA, EOMI Neck: Supple, JVD not distended Respiratory: Diminished Cardiovascular: Regular rate/rhythm Gastrointestinal: Normal bowel sounds, No tenderness Musculoskeletal: No tenderness Integumentary: No rashes Neurological: Normal speech, Normal tone, Normal affect Lymphatics: No axilla or inguinal lymphadenopathy - Studies Medications List Reviewed: Yes Assessment And Plan - Current Problems (Diagnosis) (1) Pneumonia due to 2019 novel coronavirus Current Visit: Yes Status: Acute Plan: WE ARE FOLLOWING MASK 2 PROTOCOL FOR COVID IV HIGH DOSE STEROIDS. IVERMECTIN PO EVERY OTHER DAY. XARELTO PO DAILY. REMDESIVIR DAILY IV. HIGH ARIEL OXYGEN NOTHING HAS WORKED I BOUGHT A NATURAL FORMULA FOR HER. IF SHE IS WILLING TO SHE CAN TRY THIS NO MEDICINES HAVE WORKED SO FAR. SHE IS TERMINAL. NOT SURE IF ANYTHING WILL WORK. FAMILY IS AWARE OF SERIOUS CONDITION. NOTHING SEEMS TO HAVE WORKED. SHE WANTS NO INTUBATION OR VENT SUPPORT. I TRIED NATURAL PRODUCT FOR HER LUNG SUPPORT NOTHING HAS WORKED AND SHE IS TERMINAL. (2) Acute pneumothorax Current Visit: Yes Status: Acute Plan: THIS IS A COMPLICATION OR COVID. THIS IS ACUTE WORSENING. HOPEFULLY SHE RECOVERS. PROGNOSIS IS WORSE. I CALLED DAUGHTER AND INFORMED HER OF NEW FINDING. CLINICALLY STABLE. SHE WAS NOT EATING MUCH. I ASKED HER TO GET MORALES PROTEIN LIQUID CHEST TUBE. POOR PROGNOSTIC FACTOR. HYPOXIA IS WORSE. HOPEFULLY SHE IS ABLE TO RECOVER. RESOLVED IN NEW X RAY AFTER CHEST TUBE PLACEMENT. (3) Pneumomediastinum Current Visit: Yes Status: Acute (4) Subcutaneous emphysema Current Visit: Yes Status: Acute (5) Depressed Current Visit: Yes Status: Acute Plan: VENLAFAXINE 37.5 MG DAILY TO START WITH. Qualifiers: Depression Type: reactive depression Qualified Code(s): F32.9 - Major depressive disorder, single episode, unspecified
[2021-01-27] MEDS: JUVEN PACKET PO SCH ×3 (09:00→20:48)
[2021-01-27] MEDS: FLUTICASONE 50MCG NASAL SPRAY NAS SCH ×2 (09:00→20:46)
[2021-01-27] MEDS: ENSURE HIGH PROTEIN 237 ML CAN PO SCH ×2 (09:00→20:47)
[2021-01-27] MEDS: AZELASTINE NASAL SPRAY 30 ML NAS SCH ×2 (09:00→20:45)
--- NOTE | 2021-01-27 09:27 | P.PN ---
Subjective Date of Service: 01/27/21 Chief Complaint: Respiratory failure No change still requiring high concentrations of oxygen on tube feeds Review of Systems General: Weakness Respiratory: Shortness of Breath Physical Examination - Vital Signs Temperature: 97.1 F Blood Pressure: 129/81 Pulse: 86 Respirations: 24 Pulse Ox (%): 92 - Studies Medications List Reviewed: Yes Assessment & Plan - Problems (Diagnosis) (1) Pneumonia due to 2019 novel coronavirus Current Visit: Yes Status: Acute Plan: Respiratory failure is no air leak on the chest tube chest is fully expanded still requiring high concentrations of oxygen tolerating tube feeds white count is mildly elevated start on p.o. levofloxacin
[2021-01-27] MEDS: ASPIRIN EC 81 MG TAB PO SCH (09:36)
[2021-01-27] MEDS: BUSPIRONE HCL 5 MG TABLET PO SCH ×2 (09:36→20:46)
[2021-01-27] MEDS: VENLAFAXINE HCL XR 75 MG CAP PO SCH (09:37)
[2021-01-27] MEDS: FUROSEMIDE 20 MG/ 2ML VIAL IV SCH (09:37)
[2021-01-27] MEDS: levoFLOXacin 500 MG TAB PO SCH (09:38)
[2021-01-27] MEDS: METHYLPREDNISOLONE 125 MG INJ IV SCH ×2 (09:39→20:46)
--- NOTE | 2021-01-27 11:11 | RAD REPORT ---
EXAM DESCRIPTION: RAD - Chest Single View - 01/27/2021 6:36 am CLINICAL HISTORY: chest tube Chest pain. COMPARISON: Abdomen 1 View (KUB) dated 01/26/2021; Abdomen 1 View (KUB) dated 01/26/2021; Chest Single View dated 01/26/2021; Chest Single View dated 01/25/2021 FINDINGS: Portable technique limits examination quality. A left-sided chest tube is in place. No measurable pneumothorax is present. Mild bilateral pulmonary opacities are present, slightly greater on the left. The heart is upper limit normal in size. Enteric tube coils in the stomach.
--- NOTE | 2021-01-27 13:29 | P.PN ---
Subjective Date of Service: 01/27/21 Chief Complaint: Respiratory failure Subjective: No new changes SHE IS WEAKER, DYSPNEIC. SHE HAS NO CHEST PAIN. SHE DOES NOT WANT INTUBATION. SHE IS OKAY WITH DOBHOFF FEEDING TUBE. SHE IS STILL SAME REGARDING HER PULMONARY STATUS. SHE HAS HAD PAUSES IN CARDIAC RHYTHM WHEN SHE TAKES OFF HER BIPAP. SHE HAS DOBHOFF FEEDING TUBE NOW. Review of Systems General: Weakness, Malaise Respiratory: Shortness of Breath Physical Examination - Vital Signs Temperature: 97.1 F Blood Pressure: 129/81 Pulse: 86 Respirations: 24 Pulse Ox (%): 92 - Physical Exam General: Oriented x3, Severe distress, Obese Respiratory: Diminished Cardiovascular: Regular rate/rhythm - Studies Medications List Reviewed: Yes Assessment And Plan - Current Problems (Diagnosis) (1) Pneumonia due to 2019 novel coronavirus Current Visit: Yes Status: Acute Plan: WE ARE FOLLOWING MASK 2 PROTOCOL FOR COVID IV HIGH DOSE STEROIDS. IVERMECTIN PO EVERY OTHER DAY. XARELTO PO DAILY. REMDESIVIR DAILY IV. HIGH ARIEL OXYGEN NOTHING HAS WORKED I BOUGHT A NATURAL FORMULA FOR HER. IF SHE IS WILLING TO SHE CAN TRY THIS NO MEDICINES HAVE WORKED SO FAR. SHE IS TERMINAL. NOT SURE IF ANYTHING WILL WORK. FAMILY IS AWARE OF SERIOUS CONDITION. NOTHING SEEMS TO HAVE WORKED. SHE WANTS NO INTUBATION OR VENT SUPPORT. I TRIED NATURAL PRODUCT FOR HER LUNG SUPPORT NOTHING HAS WORKED AND SHE IS TERMINAL. END STAGE PULMONARY STATUS. ALL THERAPY HAS FAILED. CALLED AND DISCUSSED WITH DAUGHTER. (2) Acute pneumothorax Current Visit: Yes Status: Acute Plan: THIS IS A COMPLICATION OR COVID. RESOLVED IN NEW X RAY AFTER CHEST TUBE PLACEMENT. (3) Pneumomediastinum Current Visit: Yes Status: Acute (4) Subcutaneous emphysema Current Visit: Yes Status: Acute (5) Depressed Current Visit: Yes Status: Acute Plan: VENLAFAXINE 37.5 MG DAILY TO START WITH. Qualifiers: Depression Type: reactive depression Qualified Code(s): F32.9 - Major depressive disorder, single episode, unspecified
[2021-01-27] MEDS: HYDROMORPHONE HCL 2 MG/ML inj IV PRN (15:52)
[2021-01-27] MEDS: RIVAROXABAN 20 MG TABLET PO SCH (17:47)
[2021-01-28] MEDS: TRAMADOL HCL 50 MG TAB PO PRN (04:51)
[2021-01-28] MEDS ORDERED: D50W 25 GM/50 ML SYRINGE IV PRN ×2 (08:05→20:26)
[2021-01-28] MEDS ORDERED: GLUCAGON 1 MG/VIAL IM PRN ×2 (08:05→20:26)
[2021-01-28] MEDS: ASPIRIN EC 81 MG TAB PO SCH (08:24)
[2021-01-28] MEDS: VENLAFAXINE HCL XR 75 MG CAP PO SCH (08:24)
[2021-01-28] MEDS: BUSPIRONE HCL 5 MG TABLET PO SCH ×2 (08:24→20:05)
[2021-01-28] MEDS: METHYLPREDNISOLONE 125 MG INJ IV SCH ×2 (08:25→20:05)
[2021-01-28] MEDS: levoFLOXacin 500 MG TAB PO SCH (08:25)
[2021-01-28] MEDS: FUROSEMIDE 20 MG/ 2ML VIAL IV SCH (08:25)
[2021-01-28] MEDS: ENSURE HIGH PROTEIN 237 ML CAN PO SCH (08:27)
[2021-01-28] MEDS: JUVEN PACKET PO SCH (08:27)
[2021-01-28] MEDS: FLUTICASONE 50MCG NASAL SPRAY NAS SCH ×2 (08:27→20:14)
--- NOTE | 2021-01-28 08:35 | P.PN ---
Subjective Date of Service: 01/28/21 Chief Complaint: Respiratory failure Subjective: Improving (Patient transferred to ICU due to desaturation on CPAP. She complaints of SOB.) Physical Examination - Vital Signs Temperature: 97 F Blood Pressure: 127/65 Pulse: 77 Respirations: 20 Pulse Ox (%): 90 - Physical Exam General: Alert, Cooperative, Mild distress Respiratory: Diminished, Other (tachypnic, LEFT chest tube in place, no air leak on water seal) - Studies Medications List Reviewed: Yes Assessment And Plan - Current Problems (Diagnosis) (1) Acute pneumothorax Current Visit: Yes Status: Acute Plan: - continue daily chest x-rays - continue medical management - chest tube to water seal, will consider heimlich valve when positive pressure reduced - likely keep chest tube while on positive pressure ventilation
--- NOTE | 2021-01-28 08:39 | RAD REPORT ---
EXAM DESCRIPTION: Paulette Single View01/28/2021 8:17 am CLINICAL HISTORY: Chest pain COMPARISON: January 27 FINDINGS: Left chest tube remains in place without visualization of a pneumothorax. Bilateral pulmonary opacities without significant change. Feeding tube coiled within the mid stomach.
[2021-01-28] MEDS: AZELASTINE NASAL SPRAY 30 ML NAS SCH ×2 (09:00→20:14)
[2021-01-28] MEDS: LORazepam 2 MG/ML VIAL IV PRN ×3 (10:04→20:30)
--- NOTE | 2021-01-28 12:12 | P.PN ---
Subjective Date of Service: 01/28/21 Chief Complaint: Respiratory failure No change patient continues to be hypoxic still on high concentrations of oxygen Review of Systems is unable to be obtained Physical Examination - Vital Signs Temperature: 97 F Blood Pressure: 189/98 Pulse: 68 Respirations: 29 Pulse Ox (%): 91 - Studies Medications List Reviewed: Yes Assessment & Plan - Problems (Diagnosis) (1) Pneumonia due to 2019 novel coronavirus Current Visit: Yes Status: Acute Plan: R respiratory failure no change is no air leak labs reviewed chest x-ray reviewed chest x-ray shows minimal changes probably interstitial lung disease
[2021-01-28] MEDS: INSULIN -REGULAR HUMAN 50 UNIT/0.5 ML ML SQ SCH ×3 (13:17→23:46)
[2021-01-28] MEDS: RIVAROXABAN 20 MG TABLET PO SCH (16:44)
--- NOTE | 2021-01-28 20:32 | P.PN ---
Subjective Date of Service: 01/28/21 Chief Complaint: Respiratory failure Subjective: No new changes SHE IS WEAKER, DYSPNEIC. SHE HAS NO CHEST PAIN. SHE DOES NOT WANT INTUBATION. SHE IS OKAY WITH DOBHOFF FEEDING TUBE. SHE IS STILL SAME REGARDING HER PULMONARY STATUS. SHE HAS HAD PAUSES IN CARDIAC RHYTHM WHEN SHE TAKES OFF HER BIPAP. SHE HAS DOBHOFF FEEDING TUBE NOW. SHE IS ABOUT THE SAME. AT TIMES OXYGEN SATURATION GOES TO 96%. Review of Systems 10-point ROS is otherwise unremarkable General: Weakness, Malaise Respiratory: As per HPI Physical Examination - Vital Signs Temperature: 97 F Blood Pressure: 141/75 Pulse: 90 Respirations: 23 Pulse Ox (%): 92 - Physical Exam General: Oriented x3, Mild distress, Other HEENT: Atraumatic, PERRLA, EOMI Neck: Supple, JVD not distended Cardiovascular: Regular rate/rhythm, Normal S1 S2 Gastrointestinal: Normal bowel sounds, No tenderness Musculoskeletal: No tenderness Integumentary: No rashes Neurological: Normal speech, Normal tone, Normal affect Lymphatics: No axilla or inguinal lymphadenopathy - Studies Medications List Reviewed: Yes Assessment And Plan - Current Problems (Diagnosis) (1) Pneumonia due to 2019 novel coronavirus Current Visit: Yes Status: Acute Plan: WE ARE FOLLOWING MASK 2 PROTOCOL FOR COVID IV HIGH DOSE STEROIDS. IVERMECTIN PO EVERY OTHER DAY. XARELTO PO DAILY. REMDESIVIR DAILY IV. HIGH ARIEL OXYGEN NOTHING HAS WORKED I BOUGHT A NATURAL FORMULA FOR HER. IF SHE IS WILLING TO SHE CAN TRY THIS NO MEDICINES HAVE WORKED SO FAR. SHE IS TERMINAL. NOT SURE IF ANYTHING WILL WORK. FAMILY IS AWARE OF SERIOUS CONDITION. NOTHING SEEMS TO HAVE WORKED. SHE WANTS NO INTUBATION OR VENT SUPPORT. I TRIED NATURAL PRODUCT FOR HER LUNG SUPPORT NOTHING HAS WORKED AND SHE IS TERMINAL. END STAGE PULMONARY STATUS. ALL THERAPY HAS FAILED. CALLED AND DISCUSSED WITH DAUGHTER. HYPOXIA SEVERE AND NOT BETTER YET. PROGNOSIS IS POOR. (2) Acute pneumothorax Current Visit: Yes Status: Acute Plan: THIS IS A COMPLICATION OR COVID. RESOLVED IN NEW X RAY AFTER CHEST TUBE PLACEMENT. (3) Pneumomediastinum Current Visit: Yes Status: Acute (4) Subcutaneous emphysema Current Visit: Yes Status: Acute (5) Depressed Current Visit: Yes Status: Acute Plan: VENLAFAXINE 37.5 MG DAILY TO START WITH. Qualifiers: Depression Type: reactive depression Qualified Code(s): F32.9 - Major depressive disorder, single episode, unspecified
[2021-01-28] MEDS ORDERED: INSULIN GLARGINE 100 UNITS/ML SQ SCH (21:00)
[2021-01-29] MEDS: LORazepam 2 MG/ML VIAL IV PRN ×5 (04:29→22:38)
[2021-01-29 05:44] LABS: C-Reactive Protein 7.43 mg/L (<3.00); Ferritin 826.8 ng/mL (8-388); Potassium 4.3 mmol/L (3.5-5.1)
[2021-01-29 05:49] LABS: Absolute Lymphocytes (CBC) 0.3 K/uL (0.7-4.9); Basophils % 0.7 % (0-1.3); Hematocrit 38.3 % (36.0-45.0); Lymphocytes % 1.7 % (15.3-44.8); RBC Red Blood Cell Count 4.17 M/uL (3.86-4.86)
[2021-01-29] MEDS: INSULIN -REGULAR HUMAN 50 UNIT/0.5 ML ML SQ SCH ×4 (06:27→23:20)
[2021-01-29] MEDS: FUROSEMIDE 20 MG/ 2ML VIAL IV SCH (08:31)
[2021-01-29] MEDS: METHYLPREDNISOLONE 125 MG INJ IV SCH (08:32)
[2021-01-29] MEDS: BUSPIRONE HCL 5 MG TABLET PO SCH ×2 (08:32→20:55)
[2021-01-29] MEDS: GUAIFENESIN/DM 5 ML UCUP PO PRN (08:32)
[2021-01-29] MEDS: VENLAFAXINE HCL XR 75 MG CAP PO SCH (08:32)
[2021-01-29] MEDS: AZELASTINE NASAL SPRAY 30 ML NAS SCH ×2 (08:32→21:00)
[2021-01-29] MEDS: ASPIRIN EC 81 MG TAB PO SCH (08:32)
[2021-01-29] MEDS: levoFLOXacin 500 MG TAB PO SCH (08:33)
[2021-01-29] MEDS: FLUTICASONE 50MCG NASAL SPRAY NAS SCH ×2 (08:33→21:00)
--- NOTE | 2021-01-29 09:18 | RAD REPORT ---
EXAM DESCRIPTION: RAD - Chest Single View - 01/29/2021 8:56 am CLINICAL HISTORY: chest tube Chest pain. COMPARISON: Chest Single View dated 01/28/2021; Chest Single View dated 01/27/2021; Abdomen 1 View (KU B) dated 01/26/2021; Abdomen 1 View (KUB) dated 01/26/2021 FINDINGS: Portable technique limits examination quality. Left-sided chest tube is in place. No measurable pneumothorax on the left. Mild interstitial lung opa cities are present bilaterally, unchanged. The heart is upper limit normal in size. Enteric tube coil s in the stomach.
--- NOTE | 2021-01-29 12:30 | P.PN ---
Subjective Date of Service: 01/29/21 Chief Complaint: Respiratory failure no change still requiring high concentrations of oxygen chest x-ray shows chronic interstitial changes Review of Systems General: Weakness Respiratory: Shortness of Breath Physical Examination - Vital Signs Temperature: 97.2 F Blood Pressure: 153/81 Pulse: 110 Respirations: 24 Pulse Ox (%): 98 - Studies Medications List Reviewed: Yes Assessment & Plan - Problems (Diagnosis) (1) Pneumonia due to 2019 novel coronavirus Current Visit: Yes Status: Acute Plan: respiratory failure still requiring high concentrations of oxygen chest x-ray shows chronic interstitial changes reduce dose of Solu-Medrol Dc levofloxacin labs reviewed maximum ventilatory support
[2021-01-29] MEDS ORDERED: INSULIN 70/30 100 UNITS/ML SQ SCH (16:30)
[2021-01-29] MEDS: RIVAROXABAN 20 MG TABLET PO SCH (17:50)
[2021-01-29] MEDS: METHYLPREDNISOLONE 40 MG INJ IV SCH (20:53)
--- NOTE | 2021-01-29 20:59 | P.PN ---
Subjective Date of Service: 01/29/21 Chief Complaint: Respiratory failure Subjective: Improving SHE IS WEAKER, DYSPNEIC. SHE HAS NO CHEST PAIN. SHE DOES NOT WANT INTUBATION. SHE IS OKAY WITH DOBHOFF FEEDING TUBE. SHE IS STILL SAME REGARDING HER PULMONARY STATUS. SHE HAS HAD PAUSES IN CARDIAC RHYTHM WHEN SHE TAKES OFF HER BIPAP. SHE HAS DOBHOFF FEEDING TUBE NOW. SHE IS ABOUT THE SAME. AT TIMES OXYGEN SATURATION GOES TO 96%. SHE HAS SHOWN NEED OF LESS OXYGEN FOR LAST TWO DAYS. THIS IS AFTER STARTING NATURAL LUNG SUPPORT FORMULA. Review of Systems 10-point ROS is otherwise unremarkable General: Weakness, Malaise Respiratory: Shortness of Breath Physical Examination - Vital Signs Temperature: 97.2 F Blood Pressure: 150/86 Pulse: 111 Respirations: 37 Pulse Ox (%): 90 - Physical Exam General: Moderate distress HEENT: Atraumatic, PERRLA, EOMI Neck: Supple, JVD not distended Cardiovascular: Regular rate/rhythm, Normal S1 S2 Gastrointestinal: Normal bowel sounds, No tenderness Musculoskeletal: No tenderness Integumentary: No rashes Neurological: Normal speech, Normal tone, Normal affect Lymphatics: No axilla or inguinal lymphadenopathy - Studies Medications List Reviewed: Yes Assessment And Plan - Current Problems (Diagnosis) (1) Pneumonia due to 2019 novel coronavirus Current Visit: Yes Status: Acute Plan: WE ARE FOLLOWING MASK 2 PROTOCOL FOR COVID IV HIGH DOSE STEROIDS. IVERMECTIN PO EVERY OTHER DAY. XARELTO PO DAILY. REMDESIVIR DAILY IV. HIGH ARIEL OXYGEN NOW SHE IS ON 80% FIO2. IF THIS CONTINUES THEN SHE MAY SURVIVE. THE ONLY CHANGE IS SINCE THURSDAY SHE IS ON NATURAL LUNG SUPPORT FORMULA AND WE ARE STARTING TO SEE LESSER NEED OF OXYGEN FIRST TIME IN LAST TWO DAYS SINCE THEN. (2) Acute pneumothorax Current Visit: Yes Status: Acute Plan: THIS IS A COMPLICATION OR COVID. RESOLVED IN NEW X RAY AFTER CHEST TUBE PLACEMENT. (3) Pneumomediastinum Current Visit: Yes Status: Acute (4) Subcutaneous emphysema Current Visit: Yes Status: Acute (5) Depressed Current Visit: Yes Status: Acute Plan: VENLAFAXINE 37.5 MG DAILY TO START WITH. Qualifiers: Depression Type: reactive depression Qualified Code(s): F32.9 - Major depressive disorder, single episode, unspecified
[2021-01-30] MEDS: LORazepam 2 MG/ML VIAL IV PRN ×4 (05:39→23:24)
[2021-01-30] MEDS: INSULIN -REGULAR HUMAN 50 UNIT/0.5 ML ML SQ SCH ×3 (05:40→17:38)
[2021-01-30 06:40] LABS: BUN Blood Urea Nitrogen 47 mg/dL (7-18); Bicarbonate 31 mmol/L (21-32); Glucose Level 287 mg/dL (74-106); Magnesium 2.4 mg/dL (1.8-2.4); Phosphorus 3.3 mg/dL (2.5-4.9); Potassium 4.6 mmol/L (3.5-5.1); Sodium Level 144 mmol/L (136-145)
[2021-01-30 06:53] LABS: Hematocrit 43.2 % (36.0-45.0); MPV 10.9 fL (7.6-11.3); RBC Red Blood Cell Count 4.76 M/uL (3.86-4.86)
[2021-01-30] MEDS: FUROSEMIDE 20 MG/ 2ML VIAL IV SCH (07:48)
[2021-01-30] MEDS: ASPIRIN EC 81 MG TAB PO SCH (07:48)
[2021-01-30] MEDS: VENLAFAXINE HCL XR 75 MG CAP PO SCH (07:48)
[2021-01-30] MEDS: BUSPIRONE HCL 5 MG TABLET PO SCH ×2 (07:48→20:21)
[2021-01-30] MEDS: METHYLPREDNISOLONE 40 MG INJ IV SCH ×2 (07:52→20:21)
[2021-01-30] MEDS: INSULIN 70/30 100 UNITS/ML SQ SCH ×2 (07:53→17:39)
[2021-01-30] MEDS: AZELASTINE NASAL SPRAY 30 ML NAS SCH ×2 (07:55→20:23)
[2021-01-30] MEDS: FLUTICASONE 50MCG NASAL SPRAY NAS SCH ×2 (07:55→20:23)
--- NOTE | 2021-01-30 08:39 | P.PN ---
Subjective Date of Service: 01/29/21 Chief Complaint: Respiratory failure Subjective: No new changes Physical Examination - Vital Signs Temperature: 98.0 F Blood Pressure: 131/38 Pulse: 101 Respirations: 32 Pulse Ox (%): 93 - Physical Exam General: Cooperative Respiratory: Other (tachypnic, chest tube no air leak, stable ) - Studies Medications List Reviewed: Yes Assessment And Plan - Current Problems (Diagnosis) (1) Acute pneumothorax Current Visit: Yes Status: Acute Plan: - COVID19+ - continue daily chest x-rays - continue medical management - chest tube to water seal, will consider heimlich valve when positive pressure reduced - likely keep chest tube while on positive pressure ventilation
--- NOTE | 2021-01-30 08:39 | P.PN ---
Subjective Date of Service: 01/30/21 Chief Complaint: Respiratory failure Subjective: No new changes Physical Examination - Vital Signs Temperature: 98.0 F Blood Pressure: 131/38 Pulse: 101 Respirations: 32 Pulse Ox (%): 93 - Physical Exam Respiratory: Other (chest tube in place, no air leak, no changes) - Studies Medications List Reviewed: Yes Assessment And Plan - Current Problems (Diagnosis) (1) Acute pneumothorax Current Visit: Yes Status: Acute Plan: - COVID19+ - continue daily chest x-rays - continue medical management - chest tube to water seal, will consider heimlich valve when positive pressure reduced - likely keep chest tube while on positive pressure ventilation
--- NOTE | 2021-01-30 08:43 | RAD REPORT ---
EXAM DESCRIPTION: RAD - Chest Single View - 01/30/2021 8:28 am CLINICAL HISTORY: chest tube COMPARISON: January 29 TECHNIQUE: AP portable chest image was obtained 01/30/2021 8:28 am . FINDINGS: No change in positioning of the left-side chest tube. No left-sided pneumothorax is identi fiable. Anterior pneumothorax can be occult on portable imaging. No changes seen from the prior day s tudy. Scattered lung parenchymal opacities are similar to the prior study. Heart size is normal and stable. No abnormal vascular engorgement. No new or enlarging pleural effusion. Feeding tube is curled in th e stomach. There does appear to be an acute bend or kink in the tubing. This could potentially restri ct or limit flow. IMPRESSION: No change in positioning of the chest tube. No new or enlarging pneumothorax. No change in lung parenchymal opacification since prior day imaging. There is a kink in the feeding tube that could potentially restrict flow. This can be assessed at the time of tube feeding.
--- NOTE | 2021-01-30 12:14 | P.PN ---
Subjective Date of Service: 01/30/21 Chief Complaint: Respiratory failure oxygen requirements are decreasing patient patient is becoming dejected Review of Systems is unable to be obtained Physical Examination - Vital Signs Temperature: 98.0 F Blood Pressure: 120/56 Pulse: 97 Respirations: 34 Pulse Ox (%): 88 - Studies Medications List Reviewed: Yes Assessment & Plan - Problems (Diagnosis) (1) Pneumonia due to 2019 novel coronavirus Current Visit: Yes Status: Acute Plan: respiratory failure oxygen requirements are decreasing will do daily ABGs chest x-rays still show interstitial change white count is elevated add Rocephin seems to be improving oxygen requirements decreasing labs reviewed
[2021-01-30 13:43] LABS: Blood Gas Oxyhemoglobin 86.2 % (94-97); Blood O2 Saturation 87.9 % (92-98.5)
[2021-01-30 13:44] LABS: Arterial Blood Carboxyhemoglob 1.1 % (0-1.5)
[2021-01-30] MEDS: RIVAROXABAN 20 MG TABLET PO SCH (17:37)
--- NOTE | 2021-01-30 20:23 | P.PN ---
Subjective Date of Service: 01/30/21 Chief Complaint: Respiratory failure Subjective: No new changes SHE IS WEAKER, DYSPNEIC. SHE HAS NO CHEST PAIN. SHE DOES NOT WANT INTUBATION. SHE IS OKAY WITH DOBHOFF FEEDING TUBE. SHE IS STILL SAME REGARDING HER PULMONARY STATUS. SHE HAS HAD PAUSES IN CARDIAC RHYTHM WHEN SHE TAKES OFF HER BIPAP. SHE HAS DOBHOFF FEEDING TUBE NOW. SHE IS ABOUT THE SAME. AT TIMES OXYGEN SATURATION GOES TO 96%. SHE HAS SHOWN NEED OF LESS OXYGEN FOR LAST TWO DAYS. THIS IS AFTER STARTING NATURAL LUNG SUPPORT FORMULA. SHE IS VERY WEAK, FATIGUED, DYSPNEIC. SHE IS GETTING ALL MEDS , ANTIBIOTICS AND SUPPLEMENTS. Review of Systems 10-point ROS is otherwise unremarkable Respiratory: Shortness of Breath Physical Examination - Vital Signs Temperature: 97.5 F Blood Pressure: 138/85 Pulse: 108 Respirations: 23 Pulse Ox (%): 93 - Physical Exam General: Alert, Oriented x3, Severe distress, Obese Respiratory: Other (ACCESORY MUSCLE OR RESPIRATION AT WORK.) Cardiovascular: Regular rate/rhythm - Studies Medications List Reviewed: Yes Assessment And Plan - Current Problems (Diagnosis) (1) Pneumonia due to 2019 novel coronavirus Current Visit: Yes Status: Acute Plan: WE ARE FOLLOWING MASK 2 PROTOCOL FOR COVID IV HIGH DOSE STEROIDS. IVERMECTIN PO EVERY OTHER DAY. XARELTO PO DAILY. REMDESIVIR DAILY IV. HIGH ARIEL OXYGEN NOW SHE IS ON 80% FIO2. IF THIS CONTINUES THEN SHE MAY SURVIVE. THE ONLY CHANGE IS SINCE THURSDAY SHE IS ON NATURAL LUNG SUPPORT FORMULA AND WE ARE STARTING TO SEE LESSER NEED OF OXYGEN FIRST TIME IN LAST TWO DAYS SINCE THEN. HER ABG LOOKS SAME WITH LOWER OXYGEN SUPPLY. THAT IS SOME IMPROVEMENT CONTINUE CURRENT REGIMEN. (2) Acute pneumothorax Current Visit: Yes Status: Acute Plan: THIS IS A COMPLICATION OR COVID. RESOLVED IN NEW X RAY AFTER CHEST TUBE PLACEMENT. (3) Pneumomediastinum Current Visit: Yes Status: Acute (4) Subcutaneous emphysema Current Visit: Yes Status: Acute (5) Depressed Current Visit: Yes Status: Acute Plan: VENLAFAXINE 37.5 MG DAILY TO START WITH. Qualifiers: Depression Type: reactive depression Qualified Code(s): F32.9 - Major depressive disorder, single episode, unspecified
[2021-01-31] MEDS: INSULIN -REGULAR HUMAN 50 UNIT/0.5 ML ML SQ SCH ×5 (00:21→23:45)
[2021-01-31] MEDS: LORazepam 2 MG/ML VIAL IV PRN ×5 (04:22→23:06)
[2021-01-31 05:44] LABS: BUN Blood Urea Nitrogen 53 mg/dL (7-18); Bicarbonate 31 mmol/L (21-32); C-Reactive Protein 3.89 mg/L (<3.00); Ferritin 865.1 ng/mL (8-388); Glucose Level 324 mg/dL (74-106); Potassium 4.1 mmol/L (3.5-5.1); Sodium Level 142 mmol/L (136-145)
[2021-01-31] MEDS: INSULIN 70/30 100 UNITS/ML SQ SCH ×2 (08:01→16:30)
[2021-01-31] MEDS: METHYLPREDNISOLONE 40 MG INJ IV SCH ×2 (08:02→19:49)
[2021-01-31] MEDS: CEFTRIAXONE/SWI 1gm 1 GM/10 ML SYR IV SCH (08:02)
[2021-01-31] MEDS: GUAIFENESIN/DM 5 ML UCUP PO PRN (08:02)
[2021-01-31] MEDS: ASPIRIN EC 81 MG TAB PO SCH (08:03)
[2021-01-31] MEDS: FUROSEMIDE 20 MG/ 2ML VIAL IV SCH (08:03)
[2021-01-31] MEDS: VENLAFAXINE HCL XR 75 MG CAP PO SCH (08:04)
[2021-01-31] MEDS: BUSPIRONE HCL 5 MG TABLET PO SCH (08:04)
[2021-01-31] MEDS: AZELASTINE NASAL SPRAY 30 ML NAS SCH ×2 (08:05→19:50)
[2021-01-31] MEDS: FLUTICASONE 50MCG NASAL SPRAY NAS SCH ×2 (08:05→19:49)
--- NOTE | 2021-01-31 09:05 | RAD REPORT ---
EXAM DESCRIPTION: RAD - Chest Single View - 01/31/2021 8:57 am CLINICAL HISTORY: s/p left chest tube / Chest pain. COMPARISON: Chest Single View dated 01/30/2021; Chest Single View dated 01/29/2021; Chest Single View dated 01/28/2021; Chest Single View dated 01/27/2021 FINDINGS: Portable technique limits examination quality. Left-sided chest tube remains in place. Mild to moderate bilateral interstitial lung opacities are pr esent. These opacities appear stable since comparative study. The heart is normal in size. Small righ t pleural effusion.Enteric tube coils the stomach. IMPRESSION: Stable chest since 01/30/2021
--- NOTE | 2021-01-31 13:34 | P.PN ---
Subjective Date of Service: 01/31/21 Chief Complaint: Respiratory failure Subjective: No new changes Physical Examination - Vital Signs Temperature: 97.2 F Blood Pressure: 148/99 Pulse: 113 Respirations: 29 Pulse Ox (%): 92 - Physical Exam Respiratory: Diminished, Other (chest tube in place- no air leak) - Studies Medications List Reviewed: Yes Assessment And Plan - Current Problems (Diagnosis) (1) Acute pneumothorax Current Visit: Yes Status: Acute Plan: - COVID19+ - continue daily chest x-rays - continue medical management - chest tube to water seal, will consider heimlich valve when positive pressure reduced - likely keep chest tube while on positive pressure ventilation
--- NOTE | 2021-01-31 13:52 | P.PN ---
Subjective Date of Service: 01/31/21 Chief Complaint: Respiratory failure No change patient is still requiring high concentrations of oxygen no air leak Physical Examination - Vital Signs Temperature: 97.2 F Blood Pressure: 148/99 Pulse: 113 Respirations: 29 Pulse Ox (%): 92 - Studies Medications List Reviewed: Yes Assessment & Plan - Problems (Diagnosis) (1) Pneumonia due to 2019 novel coronavirus Current Visit: Yes Status: Acute Plan: Respiratory failure condition stable continue to try and wean the oxygen down white count is mildly elevated plan to increase NG tube water flushes as BUN is increasing Plan to discharge in: Greater than 2 days
[2021-01-31] MEDS: RIVAROXABAN 20 MG TABLET PO SCH (17:42)
--- NOTE | 2021-01-31 21:23 | P.PN ---
Subjective Date of Service: 01/31/21 Chief Complaint: Respiratory failure Subjective: Improving SHE IS WEAKER, DYSPNEIC. SHE HAS NO CHEST PAIN. SHE DOES NOT WANT INTUBATION. SHE IS OKAY WITH DOBHOFF FEEDING TUBE. SHE IS STILL SAME REGARDING HER PULMONARY STATUS. SHE HAS HAD PAUSES IN CARDIAC RHYTHM WHEN SHE TAKES OFF HER BIPAP. SHE HAS DOBHOFF FEEDING TUBE NOW. SHE IS ABOUT THE SAME. AT TIMES OXYGEN SATURATION GOES TO 96%. SHE HAS SHOWN NEED OF LESS OXYGEN FOR LAST TWO DAYS. THIS IS AFTER STARTING NATURAL LUNG SUPPORT FORMULA. SHE IS VERY WEAK, FATIGUED, DYSPNEIC. SHE IS GETTING ALL MEDS , ANTIBIOTICS AND SUPPLEMENTS. STILL THE SAME BUT SHOWS SOME NUMBERS HIGH 94% ON OXYGEN SATURATION. SHE STILL IS VERY DYSPNEIC ON ANY MOVEMENTS IN THE BED. Review of Systems 10-point ROS is otherwise unremarkable General: Weakness, Malaise Respiratory: Shortness of Breath Physical Examination - Vital Signs Temperature: 97.9 F Blood Pressure: 132/82 Pulse: 102 Respirations: 21 Pulse Ox (%): 94 - Physical Exam General: Oriented x3, Moderate distress, Severe distress, Obese HEENT: Atraumatic, PERRLA, EOMI Neck: Supple, JVD not distended Respiratory: Other (CHEST TUBE IN PLACE.) Cardiovascular: Regular rate/rhythm Gastrointestinal: Normal bowel sounds, No tenderness Musculoskeletal: No tenderness Integumentary: No rashes Neurological: Normal speech, Normal tone, Normal affect Lymphatics: No axilla or inguinal lymphadenopathy - Studies Medications List Reviewed: Yes Assessment And Plan - Current Problems (Diagnosis) (1) Pneumonia due to 2019 novel coronavirus Current Visit: Yes Status: Acute Plan: WE ARE FOLLOWING MASK 2 PROTOCOL FOR COVID IV HIGH DOSE STEROIDS. IVERMECTIN PO EVERY OTHER DAY. XARELTO PO DAILY. REMDESIVIR DAILY IV. HIGH ARIEL OXYGEN NOW SHE IS ON 80% FIO2. IF THIS CONTINUES THEN SHE MAY SURVIVE. THE ONLY CHANGE IS SINCE THURSDAY SHE IS ON NATURAL LUNG SUPPORT FORMULA AND WE ARE STARTING TO SEE LESSER NEED OF OXYGEN FIRST TIME IN LAST TWO DAYS SINCE THEN. HER ABG LOOKS SAME WITH LOWER OXYGEN SUPPLY. THAT IS SOME IMPROVEMENT CONTINUE CURRENT REGIMEN. SEVERE HYPOXIA CONTINUES. HAS IMPROVED SOME. HOPEFULLY WILL CONTINUE TO DO SO. (2) Acute pneumothorax Current Visit: Yes Status: Acute Plan: THIS IS A COMPLICATION OR COVID. RESOLVED IN NEW X RAY AFTER CHEST TUBE PLACEMENT. (3) Pneumomediastinum Current Visit: Yes Status: Acute (4) Subcutaneous emphysema Current Visit: Yes Status: Acute (5) Depressed Current Visit: Yes Status: Acute Plan: VENLAFAXINE 37.5 MG DAILY TO START WITH. Qualifiers: Depression Type: reactive depression Qualified Code(s): F32.9 - Major depressive disorder, single episode, unspecified
[2021-02-01] MEDS: LORazepam 2 MG/ML VIAL IV PRN ×5 (04:30→23:15)
[2021-02-01 05:45] LABS: BUN Blood Urea Nitrogen 50 mg/dL (7-18); Bicarbonate 33 mmol/L (21-32); Glucose Level 299 mg/dL (74-106); Potassium 3.9 mmol/L (3.5-5.1); Sodium Level 142 mmol/L (136-145)
[2021-02-01] MEDS: INSULIN -REGULAR HUMAN 50 UNIT/0.5 ML ML SQ SCH ×4 (06:13→23:48)
[2021-02-01] MEDS: INSULIN 70/30 100 UNITS/ML SQ SCH ×2 (07:30→17:20)
[2021-02-01 07:47] LABS: Absolute Lymphocytes (CBC) 1.1 K/uL (0.7-4.9); Basophils % 0.2 % (0-1.3); Hematocrit 39.3 % (36.0-45.0); Lymphocytes % 5.4 % (15.3-44.8); MPV 10.5 fL (7.6-11.3)
[2021-02-01] MEDS: GUAIFENESIN/DM 5 ML UCUP PO PRN ×2 (08:17→21:37)
[2021-02-01] MEDS: FUROSEMIDE 20 MG/ 2ML VIAL IV SCH (08:18)
[2021-02-01] MEDS: ASPIRIN EC 81 MG TAB PO SCH (08:18)
[2021-02-01] MEDS: METHYLPREDNISOLONE 40 MG INJ IV SCH ×2 (08:18→20:22)
[2021-02-01] MEDS: VENLAFAXINE HCL XR 75 MG CAP PO SCH (08:18)
[2021-02-01] MEDS: CEFTRIAXONE/SWI 1gm 1 GM/10 ML SYR IV SCH (08:18)
[2021-02-01] MEDS: FLUTICASONE 50MCG NASAL SPRAY NAS SCH ×2 (08:19→20:22)
[2021-02-01] MEDS: AZELASTINE NASAL SPRAY 30 ML NAS SCH ×2 (08:19→20:23)
[2021-02-01 08:47] LABS: Blood Morphology Comment NOT SEEN (NOT SEEN); Platelet Estimate ADEQ
[2021-02-01] MEDS ORDERED: VENLAFAXINE HCL XR 37.5MG CAP PO SCH ×2 (09:00)
--- NOTE | 2021-02-01 09:04 | RAD REPORT ---
EXAM DESCRIPTION: RAD - Chest Single View - 02/01/2021 5:41 am CLINICAL HISTORY: s/p left chest tube / Chest pain. COMPARISON: Chest Single View dated 01/31/2021; Chest Single View dated 01/30/2021; Chest Single View dated 01/29/2021; Chest Single View dated 01/28/2021 FINDINGS: Portable technique limits examination quality. Left-sided chest tube is in place directed cephalad. No measurable pneumothorax is present on the lef t. The lungs are underinflated with vascular crowding evident. The heart is normal in size.Enteric tu be is coiled in the stomach.
--- NOTE | 2021-02-01 13:53 | P.PN ---
Subjective Date of Service: 02/01/21 Chief Complaint: Respiratory failure No change still requiring high concentrations of oxygen no air leak Review of Systems is unable to be obtained Physical Examination - Vital Signs Temperature: 97.9 F Blood Pressure: 157/99 Pulse: 109 Respirations: 33 Pulse Ox (%): 86 - Studies Medications List Reviewed: Yes Assessment & Plan - Problems (Diagnosis) (1) Pneumonia due to 2019 novel coronavirus Current Visit: Yes Status: Acute Plan: Respiratory failure no change continue with tube feeds BiPAP patient not stable to be transferred chemistries reviewed white count is mildly elevated still very hypoxic blood pressure is little elevated
[2021-02-01] MEDS: RIVAROXABAN 20 MG TABLET PO SCH (17:21)
--- NOTE | 2021-02-01 18:53 | P.PN ---
Subjective Date of Service: 02/01/21 Chief Complaint: Respiratory failure Subjective: Worsening SHE IS GETTING WORSE. I SEE HER RESIPARATORY RATE GETTING HIGHER. SHE HAS MORE TACHYCARDIA. SHE IS MORE LETHARGIC. Physical Examination - Vital Signs Temperature: 98.5 F Blood Pressure: 152/96 Pulse: 111 Respirations: 31 Pulse Ox (%): 93 - Physical Exam General: Severe distress, Obese Respiratory: Other (TACHYPNEA.) Cardiovascular: Regular rate/rhythm - Studies Medications List Reviewed: Yes Assessment And Plan - Current Problems (Diagnosis) (1) Pneumonia due to 2019 novel coronavirus Current Visit: Yes Status: Acute Plan: LEUKOCYTOSIS IS WORSE. ADD MERREM STOP ROCEPHIN. THIS IS POSSIBLY JUST A SIGN OF WORSENING CONDITION TALKED TO DAUGHTER IN [place] WHO IS IN CHARGE OF COMMUNICATION NOW. SHE UNDERSTANDS PROGNOSIS IS POOR. SHE DOES NOT WANT INTUBATION- THE PATIENT HAS REFUSED IT. THEY WANT TRANSFER TO [facility] KNOWING THAT COLLATERAL TRANSFER MAY NOT HAPPEN. [facility] CALLED AND THEY ASKED TO TALK TO DR. GARDNER. I GAVE THEM NUMBER. (2) Acute pneumothorax Current Visit: Yes Status: Acute Plan: THIS IS A COMPLICATION OR COVID. RESOLVED IN NEW X RAY AFTER CHEST TUBE PLACEMENT. (3) Pneumomediastinum Current Visit: Yes Status: Acute (4) Subcutaneous emphysema Current Visit: Yes Status: Acute (5) Depressed Current Visit: Yes Status: Acute Plan: VENLAFAXINE 37.5 MG DAILY TO START WITH. Qualifiers: Depression Type: reactive depression Qualified Code(s): F32.9 - Major depressive disorder, single episode, unspecified
[2021-02-01] MEDS: ACETAMINOPHEN 500 MG TAB PO PRN (20:23)
[2021-02-01] MEDS: ONDANSETRON 4 MG/2 ML VIAL IV PRN (21:37)
[2021-02-02] MEDS ORDERED: Meropenem 1000 MG/VIAL IV SCH (01:00)
[2021-02-02] MEDS: Meropenem 1,000 MG in NA CHLORIDE 0.9% 100 ML IV SCH ×3 (01:06→16:28)
[2021-02-02 05:32] LABS: BUN Blood Urea Nitrogen 47 mg/dL (7-18); Bicarbonate 37 mmol/L (21-32); Ferritin 619.1 ng/mL (8-388); Glucose Level 306 mg/dL (74-106); Potassium 4.5 mmol/L (3.5-5.1); Sodium Level 141 mmol/L (136-145)
[2021-02-02] MEDS: INSULIN -REGULAR HUMAN 50 UNIT/0.5 ML ML SQ SCH ×3 (06:09→18:00)
--- NOTE | 2021-02-02 07:50 | RAD REPORT ---
EXAM DESCRIPTION: RAD - Chest Single View - 02/02/2021 7:10 am CLINICAL HISTORY: s/p left chest tube 01/23 COMPARISON: February 01, January 31 TECHNIQUE: AP portable chest image was obtained 02/02/2021 7:10 am . FINDINGS: Left-sided chest tube remains in place not substantially different from the serial studies . No measurable pneumothorax is identifiable. Anterior pneumothorax can be occult. Feeding tube is in place curled in the stomach similar to prior imaging. Low lung volumes noted. Patchy lung base opacification is present not substantially different from th e prior studies. Heart and vasculature are normal. There is no new or enlarging pleural effusion. No acute bony abnor mality seen. No acute aortic findings suspected. IMPRESSION: Stable chest examination as detailed.
[2021-02-02] MEDS: METHYLPREDNISOLONE 40 MG INJ IV SCH ×2 (08:05→20:13)
[2021-02-02] MEDS: VENLAFAXINE HCL XR 75 MG CAP PO SCH (08:05)
[2021-02-02] MEDS: FLUCONAZOLE 100 MG TAB PO SCH (08:05)
[2021-02-02] MEDS: ASPIRIN EC 81 MG TAB PO SCH (08:05)
[2021-02-02] MEDS: INSULIN 70/30 100 UNITS/ML SQ SCH ×2 (08:06→16:29)
[2021-02-02] MEDS: GUAIFENESIN/DM 5 ML UCUP PO PRN (08:06)
[2021-02-02] MEDS: AZELASTINE NASAL SPRAY 30 ML NAS SCH ×2 (08:07→20:14)
[2021-02-02] MEDS: FLUTICASONE 50MCG NASAL SPRAY NAS SCH ×2 (08:07→20:14)
[2021-02-02 08:12] LABS: Absolute Lymphocytes (CBC) 0.7 K/uL (0.7-4.9); Basophils % 0.1 % (0-1.3); Lymphocytes % 4.7 % (15.3-44.8); MPV 10.8 fL (7.6-11.3); RBC Red Blood Cell Count 3.98 M/uL (3.86-4.86)
[2021-02-02 08:26] LABS: BUN Blood Urea Nitrogen 49 mg/dL (7-18); Bicarbonate 38 mmol/L (21-32); Glucose Level 203 mg/dL (74-106); Sodium Level 142 mmol/L (136-145)
[2021-02-02] MEDS ORDERED: FUROSEMIDE 20 MG/ 2ML VIAL IV SCH (09:00)
--- NOTE | 2021-02-02 10:54 | P.PN ---
Subjective Date of Service: 02/02/21 Chief Complaint: Respiratory failure oxygenation improving otherwise no change Physical Examination - Vital Signs Temperature: 97.4 F Blood Pressure: 135/77 Pulse: 104 Respirations: 26 Pulse Ox (%): 95 - Studies Medications List Reviewed: Yes Assessment & Plan - Problems (Diagnosis) (1) Pneumonia due to 2019 novel coronavirus Current Visit: Yes Status: Acute Plan: respiratory failure oxygenation improving titrate sat to 90% patient was started on imipenem white count elevated labs review agree with reducing dose of Lasix
[2021-02-02 13:18] LABS: Arterial Blood Carboxyhemoglob 1.4 % (0-1.5)
--- NOTE | 2021-02-02 14:16 | P.PN ---
Subjective Date of Service: 02/02/21 Chief Complaint: Respiratory failure Subjective: Improving SHE IS GETTING WORSE. I SEE HER RESIPARATORY RATE GETTING HIGHER. SHE HAS MORE TACHYCARDIA. SHE IS MORE LETHARGIC. SHE IS LITTLE MORE AWAKE TODAY STILL NEEDS 85% FIO2 AND BIPAP. I ADDED MERREM AND STOPPED ROCEPIHN WBC RAISED TO 19K NOT TODAY IT IS DOWN TO 14K AFTER CHANGES I REDUCED LASIX TO 10 MG DAILY SHE SHOWS SOME DEHYDRATION. LASIX MAY HELP ARDS SYMPTOMS. Physical Examination - Vital Signs Temperature: 97.6 F Blood Pressure: 121/68 Pulse: 105 Respirations: 21 Pulse Ox (%): 92 - Physical Exam General: Moderate distress, Severe distress, Obese HEENT: Atraumatic, PERRLA, EOMI Neck: Supple, JVD not distended Respiratory: Diminished Cardiovascular: Regular rate/rhythm (TACHYCARDIA) Gastrointestinal: Normal bowel sounds, No tenderness Musculoskeletal: No tenderness Integumentary: No rashes Neurological: Normal speech, Normal tone, Normal affect Lymphatics: No axilla or inguinal lymphadenopathy - Studies Medications List Reviewed: Yes Assessment And Plan - Current Problems (Diagnosis) (1) Pneumonia due to 2019 novel coronavirus Current Visit: Yes Status: Acute Plan: LEUKOCYTOSIS IS WORSE. ADD MERREM STOP ROCEPHIN. THIS IS POSSIBLY JUST A SIGN OF WORSENING CONDITION TALKED TO DAUGHTER IN [place] WHO IS IN CHARGE OF COMMUNICATION NOW. SHE UNDERSTANDS PROGNOSIS IS POOR. SHE DOES NOT WANT INTUBATION- THE PATIENT HAS REFUSED IT. THEY WANT TRANSFER TO [facility] KNOWING THAT COLLATERAL TRANSFER MAY NOT HAPPEN. [facility] CALLED AND THEY ASKED TO TALK TO DR. GARDNER. I GAVE THEM NUMBER. THERE MAY BE SUPERIMPOSED BACTERIAL INFECTION. ADDING MERREM HELPED HER STATUS. CONTINUE CURRENT REGIMEN. (2) Acute pneumothorax Current Visit: Yes Status: Acute Plan: THIS IS A COMPLICATION OR COVID. RESOLVED IN NEW X RAY AFTER CHEST TUBE PLACEMENT. (3) Pneumomediastinum Current Visit: Yes Status: Acute (4) Subcutaneous emphysema Current Visit: Yes Status: Acute (5) Depressed Current Visit: Yes Status: Acute Plan: VENLAFAXINE 37.5 MG DAILY TO START WITH. Qualifiers: Depression Type: reactive depression Qualified Code(s): F32.9 - Major depressive disorder, single episode, unspecified
[2021-02-02] MEDS: RIVAROXABAN 20 MG TABLET PO SCH (16:28)
[2021-02-02] MEDS: ACETAMINOPHEN 500 MG TAB PO PRN (20:25)
[2021-02-02] MEDS: LORazepam 2 MG/ML VIAL IV PRN (20:26)
[2021-02-03] MEDS: INSULIN -REGULAR HUMAN 50 UNIT/0.5 ML ML SQ SCH ×4 (00:18→18:12)
[2021-02-03] MEDS: Meropenem 1,000 MG in NA CHLORIDE 0.9% 100 ML IV SCH ×3 (00:18→18:12)
[2021-02-03 05:41] LABS: Absolute Lymphocytes (CBC) 0.4 K/uL (0.7-4.9); Basophils % 0.6 % (0-1.3); Hematocrit 34.9 % (36.0-45.0); Lymphocytes % 2.4 % (15.3-44.8); MPV 10.4 fL (7.6-11.3); RBC Red Blood Cell Count 3.75 M/uL (3.86-4.86)
[2021-02-03 06:04] LABS: C-Reactive Protein 6.02 mg/L (<3.00); Ferritin 534.1 ng/mL (8-388)
[2021-02-03 06:08] LABS: ALT/SGPT 36 U/L (12-78); AST/SGOT 11 U/L (15-37); Albumin 2.4 g/dL (3.4-5.0); Alkaline Phosphatase 70 U/L (45-117); BUN Blood Urea Nitrogen 46 mg/dL (7-18); Bicarbonate 35 mmol/L (21-32); Bilirubin Total 0.5 mg/dL (0.2-1.0); Glucose Level 279 mg/dL (74-106); Potassium 4.4 mmol/L (3.5-5.1); Protein, Total 5.9 g/dL (6.4-8.2); Sodium Level 145 mmol/L (136-145)
[2021-02-03] MEDS: METHYLPREDNISOLONE 40 MG INJ IV SCH ×2 (08:36→20:16)
[2021-02-03] MEDS: INSULIN 70/30 100 UNITS/ML SQ SCH ×2 (08:36→18:11)
[2021-02-03] MEDS: ASPIRIN EC 81 MG TAB PO SCH (08:36)
[2021-02-03] MEDS: FLUCONAZOLE 100 MG TAB PO SCH (08:36)
[2021-02-03] MEDS: LACTOBACILLUS/ACIDOPHILUS TAB PO SCH ×3 (08:36→20:16)
[2021-02-03] MEDS: AZELASTINE NASAL SPRAY 30 ML NAS SCH ×2 (08:37→20:19)
[2021-02-03] MEDS: FLUTICASONE 50MCG NASAL SPRAY NAS SCH ×2 (08:38→20:19)
[2021-02-03] MEDS: VENLAFAXINE HCL XR 75 MG CAP PO SCH (08:40)
[2021-02-03] MEDS: LORazepam 2 MG/ML VIAL IV PRN ×2 (09:37→17:05)
--- NOTE | 2021-02-03 10:07 | RAD REPORT ---
EXAM DESCRIPTION: Paulette Single View02/03/2021 6:43 am CLINICAL HISTORY: Left chest tube insertion COMPARISON: February 02, 2021 FINDINGS: A left chest tube remains in place. A pneumothorax is not visualized. Feeding tube coiled within the gastric fundus. No significant change in bilateral pulmonary opacities IMPRESSION: No significant change in bilateral pulmonary opacities
--- NOTE | 2021-02-03 10:25 | P.PN ---
Subjective Date of Service: 02/03/21 Chief Complaint: Respiratory failure Subjective: No new changes SHE IS GETTING WORSE. I SEE HER RESIPARATORY RATE GETTING HIGHER. SHE HAS MORE TACHYCARDIA. SHE IS MORE LETHARGIC. SHE IS LITTLE MORE AWAKE TODAY STILL NEEDS 85% FIO2 AND BIPAP. I ADDED MERREM AND STOPPED ROCEPIHN WBC RAISED TO 19K NOT TODAY IT IS DOWN TO 14K AFTER CHANGES I REDUCED LASIX TO 10 MG DAILY SHE SHOWS SOME DEHYDRATION. LASIX MAY HELP ARDS SYMPTOMS. OXYGEN NEED GOES FROM 85% TO 100%. FATIGUE, WEAK, DYSPNEIC AT REST. Review of Systems Respiratory: Shortness of Breath, As per HPI Physical Examination - Vital Signs Temperature: 98.8 F Blood Pressure: 181/87 Pulse: 88 Respirations: 29 Pulse Ox (%): 94 - Physical Exam General: Oriented x3, Severe distress, Obese Cardiovascular: Regular rate/rhythm - Studies Medications List Reviewed: Yes Assessment And Plan - Current Problems (Diagnosis) (1) Pneumonia due to 2019 novel coronavirus Current Visit: Yes Status: Acute Plan: LEUKOCYTOSIS IS WORSE. ADD MERREM STOP ROCEPHIN. THIS IS POSSIBLY JUST A SIGN OF WORSENING CONDITION TALKED TO DAUGHTER IN [place] WHO IS IN CHARGE OF COMMUNICATION NOW. SHE UNDERSTANDS PROGNOSIS IS POOR. SHE DOES NOT WANT INTUBATION- THE PATIENT HAS REFUSED IT. THEY WANT TRANSFER TO [facility] KNOWING THAT COLLATERAL TRANSFER MAY NOT HAPPEN. [facility] CALLED AND THEY ASKED TO TALK TO DR. GARDNER. I GAVE THEM NUMBER. THERE MAY BE SUPERIMPOSED BACTERIAL INFECTION. ADDING MERREM HELPED HER STATUS. CONTINUE CURRENT REGIMEN. STOP LASIX BUN AND BICARB SHOW SIGNS OF DEHYDRATION. (2) Acute pneumothorax Current Visit: Yes Status: Acute Plan: THIS IS A COMPLICATION OR COVID. RESOLVED IN NEW X RAY AFTER CHEST TUBE PLACEMENT. (3) Pneumomediastinum Current Visit: Yes Status: Acute (4) Subcutaneous emphysema Current Visit: Yes Status: Acute (5) Depressed Current Visit: Yes Status: Acute Plan: VENLAFAXINE 37.5 MG DAILY TO START WITH. Qualifiers: Depression Type: reactive depression Qualified Code(s): F32.9 - Major depressive disorder, single episode, unspecified
[2021-02-03] MEDS: CLONIDINE 0.2 MG/PATCH TD SCH (12:30)
[2021-02-03] MEDS: RIVAROXABAN 20 MG TABLET PO SCH (17:05)
--- NOTE | 2021-02-03 18:33 | RAD REPORT ---
EXAM DESCRIPTION: RAD - Chest Single View - 02/03/2021 5:30 pm CLINICAL HISTORY: Device placement PICC line placement . IMPRESSION: PICC line with its tip 4 centimeters into the right atrium
[2021-02-03] MEDS: GUAIFENESIN/DM 5 ML UCUP PO PRN (20:18)
[2021-02-04] MEDS: INSULIN -REGULAR HUMAN 50 UNIT/0.5 ML ML SQ SCH ×4 (00:12→18:07)
[2021-02-04] MEDS: Meropenem 1,000 MG in NA CHLORIDE 0.9% 100 ML IV SCH ×3 (00:14→18:04)
[2021-02-04] MEDS: VITAL HP 1,000 ML BOT RTH SCH (02:43)
[2021-02-04] MEDS: LORazepam 2 MG/ML VIAL IV PRN ×2 (03:52→08:37)
[2021-02-04 06:21] LABS: C-Reactive Protein 7.6 mg/L (<3.00); Ferritin 505.6 ng/mL (8-388)
--- NOTE | 2021-02-04 07:20 | RAD REPORT ---
EXAM DESCRIPTION: RAD - Chest Single View - 02/04/2021 6:09 am CLINICAL HISTORY: s/p left chest tube 01/23shortness of breath COMPARISON: Portable February 03, portable February 03, portable February 02 TECHNIQUE: AP portable chest image was obtained 02/04/2021 6:09 am . FINDINGS: Left-sided chest tube remains in place and is unchanged in positioning. No measurable left -sided pneumothorax. Anterior pneumothorax can be occult on portable imaging. Right-sided PICC line in place. Tip appears to have been retracted from the initial line placement fi lm. Tip is near the SVC atrial junction. Feeding tube remains curled in the decompressed stomach unch anged in position. No change to the lung parenchymal opacification. Heart and vasculature are normal. No acute bony abno rmality seen. No acute aortic findings suspected. IMPRESSION: Stable positioning of the chest tube with no left pneumothorax identifiable. Anterior pn eumothorax can be occult on all portable imaging. Right-sided PICC line appears to been retracted slightly. Tip is at the SVC atrial junction. Feeding tube is curled in the stomach unchanged in position. Tip is near the GE junction.
--- NOTE | 2021-02-04 08:46 | P.PN ---
Subjective Date of Service: 02/04/21 Chief Complaint: Respiratory failure Subjective: Worsening (worsening respiratory function) Physical Examination - Vital Signs Temperature: 97.8 F Blood Pressure: 171/105 Pulse: 91 Respirations: 33 Pulse Ox (%): 92 - Physical Exam Respiratory: Diminished (air tube in place, no changes, no air leak) - Studies Medications List Reviewed: Yes Assessment And Plan - Current Problems (Diagnosis) (1) Acute pneumothorax Current Visit: Yes Status: Acute Plan: - COVID19+ : no improvement, slow decline, tachypnic, accessory muscles used, refused intubation. - continue daily chest x-rays - continue medical management - chest tube to water seal, will consider heimlich valve when positive pressure reduced - likely keep chest tube while on positive pressure ventilation
--- NOTE | 2021-02-04 08:46 | P.PN ---
Subjective Date of Service: 02/01/21 Chief Complaint: Respiratory failure Subjective: No new changes (on bipap, sedated) Physical Examination - Vital Signs Temperature: 97.8 F Blood Pressure: 171/105 Pulse: 91 Respirations: 33 Pulse Ox (%): 92 - Physical Exam General: Alert, In no apparent distress, Cooperative Respiratory: Diminished, Other (Chest tube in place, stable, no air leak) - Studies Medications List Reviewed: Yes Assessment And Plan - Current Problems (Diagnosis) (1) Acute pneumothorax Current Visit: Yes Status: Acute Plan: - COVID19+ : no improvement, slow decline, tachypnic, accessory muscles used, refused intubation. - continue daily chest x-rays - continue medical management - chest tube to water seal, will consider heimlich valve when positive pressure reduced - likely keep chest tube while on positive pressure ventilation
[2021-02-04] MEDS: FLUTICASONE 50MCG NASAL SPRAY NAS SCH ×2 (09:00→20:40)
[2021-02-04] MEDS: AZELASTINE NASAL SPRAY 30 ML NAS SCH ×2 (09:00→20:40)
[2021-02-04] MEDS: METHYLPREDNISOLONE 40 MG INJ IV SCH ×2 (10:01→20:39)
[2021-02-04] MEDS: LACTOBACILLUS/ACIDOPHILUS TAB PO SCH ×3 (10:01→20:39)
[2021-02-04] MEDS: FLUCONAZOLE 100 MG TAB PO SCH (10:01)
[2021-02-04] MEDS: ASPIRIN EC 81 MG TAB PO SCH (10:01)
[2021-02-04] MEDS: VENLAFAXINE HCL 75 MG TABLET PO SCH ×2 (10:01→20:39)
[2021-02-04] MEDS: INSULIN 70/30 100 UNITS/ML SQ SCH ×2 (10:02→18:04)
[2021-02-04] MEDS: ONDANSETRON 4 MG/2 ML VIAL IV PRN (11:50)
[2021-02-04] MEDS: MORPHINE 2 MG/ML SYR IV PRN (11:50)
--- NOTE | 2021-02-04 12:41 | P.PN ---
Subjective Date of Service: 02/04/21 Chief Complaint: Respiratory failure patient's condition is worsening still very tachypneic high concentrations of oxygen Physical Examination - Vital Signs Temperature: 97.8 F Blood Pressure: 182/93 Pulse: 99 Respirations: 25 Pulse Ox (%): 91 - Studies Medications List Reviewed: Yes Assessment & Plan - Problems (Diagnosis) (1) Pneumonia due to 2019 novel coronavirus Current Visit: Yes Status: Acute Plan: respiratory failure condition is worsening in coming more tachypneic of added some morphine for comfort care repeat labs ordered patient is on meropenem prognosis is very poor blood pressure elevated
[2021-02-04 12:57] LABS: Arterial Blood Carboxyhemoglob 1.5 % (0-1.5); Blood Gas Oxyhemoglobin 89.8 % (94-97); Blood O2 Saturation 92.3 % (92-98.5)
[2021-02-04 13:48] LABS: BUN Blood Urea Nitrogen 40 mg/dL (7-18); Bicarbonate 36 mmol/L (21-32); Glucose Level 123 mg/dL (74-106); MPV 10.4 fL (7.6-11.3); Potassium 4.5 mmol/L (3.5-5.1); RBC Red Blood Cell Count 3.78 M/uL (3.86-4.86); Sodium Level 148 mmol/L (136-145)
--- NOTE | 2021-02-04 15:29 | RAD REPORT ---
EXAM DESCRIPTION: RAD - Abdomen 1 View (KUB) - 02/04/2021 3:10 pm CLINICAL HISTORY: Device placement Dobhoff tube placement FINDINGS: The tip of a Dobhoff tube lies at the junction of second and third portions of the duoden um.
[2021-02-04] MEDS: RIVAROXABAN 20 MG TABLET PO SCH (18:07)
--- NOTE | 2021-02-04 21:11 | P.PN ---
Subjective Date of Service: 02/04/21 Chief Complaint: Respiratory failure Subjective: No new changes SHE IS GETTING WORSE. I SEE HER RESIPARATORY RATE GETTING HIGHER. SHE HAS MORE TACHYCARDIA. SHE IS MORE LETHARGIC. SHE IS LITTLE MORE AWAKE TODAY STILL NEEDS 85% FIO2 AND BIPAP. I ADDED MERREM AND STOPPED ROCEPIHN WBC RAISED TO 19K NOT TODAY IT IS DOWN TO 14K AFTER CHANGES I REDUCED LASIX TO 10 MG DAILY SHE SHOWS SOME DEHYDRATION. LASIX MAY HELP ARDS SYMPTOMS. OXYGEN NEED GOES FROM 85% TO 100%. FATIGUE, WEAK, DYSPNEIC AT REST. HER RESPIRATORY RATE IS HIGH. OXYGEN SATURATION GOES HIGH 98% ON 100% FIO2. Review of Systems is unable to be obtained Physical Examination - Vital Signs Temperature: 96.8 F Blood Pressure: 146/88 Pulse: 104 Respirations: 31 Pulse Ox (%): 98 - Physical Exam General: Moderate distress, Severe distress, Obese Respiratory: Diminished Cardiovascular: Regular rate/rhythm - Studies Medications List Reviewed: Yes Assessment And Plan - Current Problems (Diagnosis) (1) Pneumonia due to 2019 novel coronavirus Current Visit: Yes Status: Acute Plan: LEUKOCYTOSIS IS WORSE. ADD MERREM STOP ROCEPHIN. THIS IS POSSIBLY JUST A SIGN OF WORSENING CONDITION TALKED TO DAUGHTER IN [place] WHO IS IN CHARGE OF COMMUNICATION NOW. SHE UNDERSTANDS PROGNOSIS IS POOR. SHE DOES NOT WANT INTUBATION- THE PATIENT HAS REFUSED IT. THEY WANT TRANSFER TO [facility] KNOWING THAT COLLATERAL TRANSFER MAY NOT HAPPEN. [facility] CALLED AND THEY ASKED TO TALK TO DR. GARDNER. I GAVE THEM NUMBER. THERE MAY BE SUPERIMPOSED BACTERIAL INFECTION. ADDING MERREM HELPED HER STATUS. CONTINUE CURRENT REGIMEN. STOP LASIX BUN AND BICARB SHOW SIGNS OF DEHYDRATION. TACHYPNEA, FATIGUE ARE POOR SIGNS. SOME DEHYDRATION ON LAB. I STOPPED ALL DIURETICS. WILL WATCH LAB RTNLY (2) Acute pneumothorax Current Visit: Yes Status: Acute Plan: THIS IS A COMPLICATION OR COVID. RESOLVED IN NEW X RAY AFTER CHEST TUBE PLACEMENT. (3) Pneumomediastinum Current Visit: Yes Status: Acute (4) Subcutaneous emphysema Current Visit: Yes Status: Acute (5) Depressed Current Visit: Yes Status: Acute Plan: VENLAFAXINE 37.5 MG DAILY TO START WITH. Qualifiers: Depression Type: reactive depression Qualified Code(s): F32.9 - Major depressive disorder, single episode, unspecified
[2021-02-05] MEDS: INSULIN -REGULAR HUMAN 50 UNIT/0.5 ML ML SQ SCH ×4 (00:04→18:00)
[2021-02-05] MEDS: Meropenem 1,000 MG in NA CHLORIDE 0.9% 100 ML IV SCH ×3 (00:05→18:17)
[2021-02-05] MEDS: MORPHINE 2 MG/ML SYR IV PRN (01:05)
[2021-02-05 05:45] LABS: C-Reactive Protein 7.24 mg/L (<3.00); Ferritin 434.2 ng/mL (8-388)
[2021-02-05 05:48] LABS: Hematocrit 31.7 % (36.0-45.0); RBC Red Blood Cell Count 3.38 M/uL (3.86-4.86)
[2021-02-05 05:49] LABS: Absolute Lymphocytes (CBC) 0.4 K/uL (0.7-4.9); Basophils % 0.1 % (0-1.3); Lymphocytes % 3.7 % (15.3-44.8); MPV 11.1 fL (7.6-11.3)
[2021-02-05] MEDS: VITAL HP 1,000 ML BOT RTH SCH (06:02)
--- NOTE | 2021-02-05 07:45 | RAD REPORT ---
EXAM DESCRIPTION: RAD - Chest Single View - 02/05/2021 6:55 am CLINICAL HISTORY: s/p left chest tube 01/23 COMPARISON: Abdomen film February 04, portable chest February 04 TECHNIQUE: AP portable chest image was obtained 02/05/2021 6:55 am . FINDINGS: Lung volumes are low. Interstitial and alveolar opacities are present but do appear improv ed slightly from prior imaging. No progressive lung disease. Right-sided PICC line remains in place. Tip is at the SVC atrial junction or extending minimally into the right atrium. Feeding tube is in place extending well below the diaphragm. Tip is in the duodenu m. Heart and vasculature are normal. No pneumothorax. Bilateral costophrenic angle blunting is still pr esent, worse on the right. This is probably minimal pleural effusion. No acute bony abnormality seen. No acute aortic findings suspected. IMPRESSION: Interstitial and alveolar opacities are present showing slight improvement from prior da y imaging. No change in positioning of the right-side PICC line with the tip at the SVC atrial junction or minim ally into the right atrium. Feeding tube tip is in the duodenum.
[2021-02-05] MEDS: INSULIN 70/30 100 UNITS/ML SQ SCH ×2 (08:19→16:30)
[2021-02-05] MEDS: GUAIFENESIN/DM 5 ML UCUP PO PRN (08:22)
[2021-02-05] MEDS: FLUCONAZOLE 100 MG TAB PO SCH (08:22)
[2021-02-05] MEDS: ASPIRIN EC 81 MG TAB PO SCH (08:22)
[2021-02-05] MEDS: VENLAFAXINE HCL 75 MG TABLET PO SCH ×2 (08:23→20:09)
[2021-02-05] MEDS: LACTOBACILLUS/ACIDOPHILUS TAB PO SCH ×3 (08:23→20:09)
[2021-02-05] MEDS: METHYLPREDNISOLONE 40 MG INJ IV SCH ×2 (08:23→20:10)
[2021-02-05] MEDS: FLUTICASONE 50MCG NASAL SPRAY NAS SCH ×2 (08:23→20:10)
[2021-02-05] MEDS: AZELASTINE NASAL SPRAY 30 ML NAS SCH ×2 (08:24→20:09)
[2021-02-05 09:59] LABS: Blood Morphology Comment NOT SEEN (NOT SEEN); Platelet Estimate DECR; White Blood Cell Scan OK (OK)
--- NOTE | 2021-02-05 11:55 | P.PN ---
Subjective Date of Service: 02/05/21 Chief Complaint: Respiratory failure Subjective: Improving (slight improvement, no other changes) Physical Examination - Vital Signs Temperature: 97.5 F Blood Pressure: 142/89 Pulse: 88 Respirations: 14 Pulse Ox (%): 98 - Physical Exam General: In no apparent distress Respiratory: Dull, Other (chest tube stable, no air leak on water seal.) - Studies Medications List Reviewed: Yes Assessment And Plan - Current Problems (Diagnosis) (1) Acute pneumothorax Current Visit: Yes Status: Acute Plan: - COVID19+ : no improvement, slow decline, tachypnic, accessory muscles used, refused intubation. - continue daily chest x-rays - continue medical management - chest tube to water seal, will consider heimlich valve when positive pressure reduced - likely keep chest tube while on positive pressure ventilation
--- NOTE | 2021-02-05 13:30 | P.PN ---
Subjective Date of Service: 02/05/21 Chief Complaint: Respiratory failure Patient's oxygenation is better today Review of Systems is unable to be obtained Physical Examination - Vital Signs Temperature: 97.5 F Blood Pressure: 142/89 Pulse: 88 Respirations: 14 Pulse Ox (%): 98 - Studies Medications List Reviewed: Yes Assessment & Plan - Problems (Diagnosis) (1) Pneumonia due to 2019 novel coronavirus Current Visit: Yes Status: Acute Plan: Respiratory failure no air leak on the chest tube continued titrate her FiO2 down patient is an expiratory pressure of 12 increase water flushes white count is decreased blood pressure much better control
[2021-02-05] MEDS: RIVAROXABAN 20 MG TABLET PO SCH (17:00)
--- NOTE | 2021-02-05 20:47 | P.PN ---
Subjective Date of Service: 02/05/21 Chief Complaint: Respiratory failure Subjective: Improving SHE IS GETTING WORSE. I SEE HER RESIPARATORY RATE GETTING HIGHER. SHE HAS MORE TACHYCARDIA. SHE IS MORE LETHARGIC. SHE IS LITTLE MORE AWAKE TODAY STILL NEEDS 85% FIO2 AND BIPAP. I ADDED MERREM AND STOPPED ROCEPIHN WBC RAISED TO 19K NOT TODAY IT IS DOWN TO 14K AFTER CHANGES I REDUCED LASIX TO 10 MG DAILY SHE SHOWS SOME DEHYDRATION. LASIX MAY HELP ARDS SYMPTOMS. OXYGEN NEED GOES FROM 85% TO 100%. FATIGUE, WEAK, DYSPNEIC AT REST. HER RESPIRATORY RATE IS HIGH. OXYGEN SATURATION GOES HIGH 98% ON 100% FIO2. SHE SEEMS TO HAVE BETTER OXYGENATION AFTER YESTERDAY'S DECLINE. Physical Examination - Vital Signs Temperature: 97.7 F Blood Pressure: 146/88 Pulse: 82 Respirations: 16 Pulse Ox (%): 97 - Physical Exam General: Oriented x3, Moderate distress, Obese HEENT: Atraumatic, PERRLA, EOMI Neck: Supple, JVD not distended Respiratory: Diminished Cardiovascular: Regular rate/rhythm Gastrointestinal: Normal bowel sounds, No tenderness Musculoskeletal: No tenderness Integumentary: No rashes Neurological: Normal speech, Normal tone, Normal affect Lymphatics: No axilla or inguinal lymphadenopathy - Studies Medications List Reviewed: Yes Assessment And Plan - Current Problems (Diagnosis) (1) Pneumonia due to 2019 novel coronavirus Current Visit: Yes Status: Acute Plan: LEUKOCYTOSIS IS WORSE. ADD MERREM STOP ROCEPHIN. THIS IS POSSIBLY JUST A SIGN OF WORSENING CONDITION TALKED TO DAUGHTER IN [place] WHO IS IN CHARGE OF COMMUNICATION NOW. SHE UNDERSTANDS PROGNOSIS IS POOR. SHE DOES NOT WANT INTUBATION- THE PATIENT HAS REFUSED IT. THEY WANT TRANSFER TO [place] KNOWING THAT COLLATERAL TRANSFER MAY NOT HAPPEN. [facility] CALLED AND THEY ASKED TO TALK TO DR. GARDNER. I GAVE THEM NUMBER. THERE MAY BE SUPERIMPOSED BACTERIAL INFECTION. ADDING MERREM HELPED HER STATUS. CONTINUE CURRENT REGIMEN. STOP LASIX BUN AND BICARB SHOW SIGNS OF DEHYDRATION. TACHYPNEA, FATIGUE ARE POOR SIGNS. SOME DEHYDRATION ON LAB. I STOPPED ALL DIURETICS. WILL WATCH LAB RTNLY DR GARDNER HAS STARTED TO TAPER HER OXYGEN DOSE CONTINUE OTHER MEDS. WE STOPPED LASIX TO IMPROVE DEHYDRATION. (2) Acute pneumothorax Current Visit: Yes Status: Acute Plan: THIS IS A COMPLICATION OR COVID. RESOLVED IN NEW X RAY AFTER CHEST TUBE PLACEMENT. (3) Pneumomediastinum Current Visit: Yes Status: Acute (4) Subcutaneous emphysema Current Visit: Yes Status: Acute (5) Depressed Current Visit: Yes Status: Acute Plan: VENLAFAXINE 37.5 MG DAILY TO START WITH. Qualifiers: Depression Type: reactive depression Qualified Code(s): F32.9 - Major depressive disorder, single episode, unspecified
[2021-02-05] MEDS: LORazepam 2 MG/ML VIAL IV PRN (23:00)
[2021-02-06] MEDS: Meropenem 1,000 MG in NA CHLORIDE 0.9% 100 ML IV SCH ×3 (00:03→17:41)
[2021-02-06] MEDS: INSULIN -REGULAR HUMAN 50 UNIT/0.5 ML ML SQ SCH ×4 (00:03→17:56)
[2021-02-06] MEDS: MORPHINE 2 MG/ML SYR IV PRN ×3 (03:20→23:59)
[2021-02-06] MEDS: VITAL HP 1,000 ML BOT RTH SCH (05:00)
[2021-02-06] MEDS: LORazepam 2 MG/ML VIAL IV PRN ×4 (05:31→19:10)
[2021-02-06 06:29] LABS: Ferritin 525.5 ng/mL (8-388)
[2021-02-06 06:30] LABS: C-Reactive Protein < 2.90 mg/L (<3.00)
--- NOTE | 2021-02-06 08:18 | P.PN ---
Subjective Date of Service: 02/06/21 Chief Complaint: Respiratory failure Subjective: No new changes Physical Examination - Vital Signs Temperature: 96.8 F Blood Pressure: 148/90 Pulse: 74 Respirations: 16 Pulse Ox (%): 96 - Physical Exam Respiratory: Diminished, Other (Chest tube remains functional, no air leak) - Studies Medications List Reviewed: Yes Assessment And Plan - Current Problems (Diagnosis) (1) Acute pneumothorax Current Visit: Yes Status: Acute Plan: - COVID19+ : no improvement, slow decline, tachypnic, accessory muscles used, refused intubation. - continue daily chest x-rays - continue medical management - chest tube to water seal, will consider heimlich valve when positive pressure reduced - likely keep chest tube while on positive pressure ventilation
[2021-02-06] MEDS: FLUTICASONE 50MCG NASAL SPRAY NAS SCH ×2 (09:00→21:00)
[2021-02-06] MEDS: AZELASTINE NASAL SPRAY 30 ML NAS SCH ×2 (09:00→21:00)
[2021-02-06] MEDS: INSULIN 70/30 100 UNITS/ML SQ SCH ×2 (09:35→18:53)
[2021-02-06] MEDS: BUSPIRONE HCL 5 MG TABLET PO SCH ×3 (09:59→21:01)
[2021-02-06] MEDS: VENLAFAXINE HCL 75 MG TABLET PO SCH ×2 (09:59→21:01)
[2021-02-06] MEDS: FLUCONAZOLE 100 MG TAB PO SCH (10:00)
[2021-02-06] MEDS: METHYLPREDNISOLONE 40 MG INJ IV SCH ×2 (10:00→21:00)
[2021-02-06] MEDS: LACTOBACILLUS/ACIDOPHILUS TAB PO SCH ×3 (10:00→21:00)
[2021-02-06] MEDS: ASPIRIN EC 81 MG TAB PO SCH (10:00)
[2021-02-06] MEDS: RIVAROXABAN 20 MG TABLET PO SCH (17:56)
--- NOTE | 2021-02-06 20:54 | P.PN ---
Subjective Date of Service: 02/06/21 Chief Complaint: Respiratory failure Subjective: Improving SHE IS GETTING WORSE. I SEE HER RESIPARATORY RATE GETTING HIGHER. SHE HAS MORE TACHYCARDIA. SHE IS MORE LETHARGIC. SHE IS LITTLE MORE AWAKE TODAY STILL NEEDS 85% FIO2 AND BIPAP. I ADDED MERREM AND STOPPED ROCEPIHN WBC RAISED TO 19K NOT TODAY IT IS DOWN TO 14K AFTER CHANGES I REDUCED LASIX TO 10 MG DAILY SHE SHOWS SOME DEHYDRATION. LASIX MAY HELP ARDS SYMPTOMS. OXYGEN NEED GOES FROM 85% TO 100%. FATIGUE, WEAK, DYSPNEIC AT REST. HER RESPIRATORY RATE IS HIGH. OXYGEN SATURATION GOES HIGH 98% ON 100% FIO2. SHE SEEMS TO HAVE BETTER OXYGENATION AFTER YESTERDAY'S DECLINE. SHE HAS SLIGHT IMPROVEMENT TODAY. OXYGENATION FLUCTUATES BETWEEN LOW AND NORMAL. Physical Examination - Vital Signs Temperature: 98.9 F Blood Pressure: 145/77 Pulse: 80 Respirations: 15 Pulse Ox (%): 97 - Physical Exam General: Oriented x3, Severe distress, Obese HEENT: Atraumatic, PERRLA, EOMI Neck: Supple, JVD not distended Respiratory: Other (RAISED RESP RATE.) Cardiovascular: Regular rate/rhythm, Normal S1 S2 Gastrointestinal: Normal bowel sounds, No tenderness Musculoskeletal: No tenderness Integumentary: No rashes Neurological: Normal speech, Normal tone, Normal affect Lymphatics: No axilla or inguinal lymphadenopathy - Studies Medications List Reviewed: Yes Assessment And Plan - Current Problems (Diagnosis) (1) Pneumonia due to 2019 novel coronavirus Current Visit: Yes Status: Acute Plan: LEUKOCYTOSIS IS WORSE. ADD MERREM STOP ROCEPHIN. THIS IS POSSIBLY JUST A SIGN OF WORSENING CONDITION TALKED TO DAUGHTER IN LAW WHO IS IN CHARGE OF COMMUNICATION NOW. SHE UNDERSTANDS PROGNOSIS IS POOR. SHE DOES NOT WANT INTUBATION- THE PATIENT HAS REFUSED IT. THEY WANT TRANSFER TO [place] KNOWING THAT COLLATERAL TRANSFER MAY NOT HAPPEN. LIZBETH CALLED AND THEY ASKED TO TALK TO DR. GARDNER. I GAVE THEM NUMBER. THERE MAY BE SUPERIMPOSED BACTERIAL INFECTION. ADDING MERREM HELPED HER STATUS. CONTINUE CURRENT REGIMEN. STOP LASIX BUN AND BICARB SHOW SIGNS OF DEHYDRATION. TACHYPNEA, FATIGUE ARE POOR SIGNS. SOME DEHYDRATION ON LAB. I STOPPED ALL DIURETICS. WILL WATCH LAB RTNLY DR GARDNER HAS STARTED TO TAPER HER OXYGEN DOSE CONTINUE OTHER MEDS. WE STOPPED LASIX TO IMPROVE DEHYDRATION. CXR SHOWS SOME IMPROVEMENT. THIS IS ENCOURAGING . OXYGENATION STILL POOR. (2) Acute pneumothorax Current Visit: Yes Status: Acute Plan: THIS IS A COMPLICATION OR COVID. RESOLVED IN NEW X RAY AFTER CHEST TUBE PLACEMENT. (3) Pneumomediastinum Current Visit: Yes Status: Acute (4) Subcutaneous emphysema Current Visit: Yes Status: Acute (5) Depressed Current Visit: Yes Status: Acute Plan: VENLAFAXINE 37.5 MG DAILY TO START WITH. Qualifiers: Depression Type: reactive depression Qualified Code(s): F32.9 - Major depressive disorder, single episode, unspecified
[2021-02-07] MEDS: INSULIN -REGULAR HUMAN 50 UNIT/0.5 ML ML SQ SCH ×4 (00:01→18:12)
[2021-02-07] MEDS: MORPHINE 2 MG/ML SYR IV PRN ×4 (03:54→20:21)
[2021-02-07] MEDS: VITAL HP 1,000 ML BOT RTH SCH (05:00)
[2021-02-07 06:46] LABS: Absolute Lymphocytes (CBC) 0.7 K/uL (0.7-4.9); Basophils % 0.2 % (0-1.3); Hematocrit 30.9 % (36.0-45.0); MPV 10.4 fL (7.6-11.3); RBC Red Blood Cell Count 3.34 M/uL (3.86-4.86)
[2021-02-07 07:15] LABS: BUN Blood Urea Nitrogen 27 mg/dL (7-18); Bicarbonate 33 mmol/L (21-32); C-Reactive Protein 3.96 mg/L (<3.00); Ferritin 552.9 ng/mL (8-388); Glucose Level 175 mg/dL (74-106); Magnesium 2.2 mg/dL (1.8-2.4); Phosphorus 2.5 mg/dL (2.5-4.9); Potassium 4.4 mmol/L (3.5-5.1); Sodium Level 136 mmol/L (136-145)
[2021-02-07] MEDS: FLUTICASONE 50MCG NASAL SPRAY NAS SCH ×2 (07:31→20:18)
[2021-02-07] MEDS: AZELASTINE NASAL SPRAY 30 ML NAS SCH ×2 (07:31→20:16)
[2021-02-07] MEDS ORDERED: POTASSIUM PHOS IN 0.9 % NACL 15 MMOL/250 ML BAG IV ONE (08:00)
[2021-02-07] MEDS: METHYLPREDNISOLONE 40 MG INJ IV SCH ×2 (08:19→20:20)
[2021-02-07] MEDS: LACTOBACILLUS/ACIDOPHILUS TAB PO SCH ×3 (08:19→20:20)
[2021-02-07] MEDS: ASPIRIN EC 81 MG TAB PO SCH (08:19)
[2021-02-07] MEDS: VENLAFAXINE HCL 75 MG TABLET PO SCH ×2 (08:19→20:17)
[2021-02-07] MEDS: BUSPIRONE HCL 5 MG TABLET PO SCH ×3 (08:20→20:16)
[2021-02-07] MEDS: carvediloL 6.25 MG TAB PO SCH ×2 (08:20→20:17)
[2021-02-07] MEDS: INSULIN 70/30 100 UNITS/ML SQ SCH ×2 (08:20→18:11)
--- NOTE | 2021-02-07 08:20 | P.PN ---
Subjective Date of Service: 02/07/21 Chief Complaint: Respiratory failure Still requiring high concentrations of oxygen white count has normalized Review of Systems is unable to be obtained Physical Examination - Vital Signs Temperature: 97.6 F Blood Pressure: 180/92 Pulse: 75 Respirations: 13 Pulse Ox (%): 90 - Studies Medications List Reviewed: Yes Assessment & Plan - Problems (Diagnosis) (1) Pneumonia due to 2019 novel coronavirus Current Visit: Yes Status: Acute Plan: Respiratory failure no air leak from the chest tube white count is normal lisset mistries reviewed
[2021-02-07] MEDS: FLUCONAZOLE 100 MG TAB PO SCH (08:21)
[2021-02-07] MEDS: LORazepam 2 MG/ML VIAL IV PRN ×2 (08:59→18:16)
[2021-02-07] MEDS: Meropenem 1,000 MG in NA CHLORIDE 0.9% 100 ML IV SCH ×4 (09:01→16:39)
[2021-02-07] MEDS: clonazePAM 0.5 MG TAB PO SCH ×2 (12:14→20:20)
--- NOTE | 2021-02-07 12:34 | RAD REPORT ---
EXAM DESCRIPTION: RAD - Chest Single View - 02/07/2021 12:20 pm CLINICAL HISTORY: Pneumothorax COMPARISON: Portable February 05 TECHNIQUE: AP portable chest image was obtained 02/07/2021 12:20 pm . FINDINGS: Lung volumes are low. Interstitial and alveolar opacities are not substantially different from the comparison. No progressive lung parenchymal process. Heart size and pulmonary vasculature ar e stable. No change in positioning of the left-side chest tube. No measurable left-sided pneumothorax seen. On portable imaging and anterior pneumothorax can be occult. No change in positioning of the right-side PICC line. Feeding tube is well below the diaphragm likel y in the second or third portion of the duodenum. No new or enlarging pleural effusion. No acute bony abnormality seen. No acute aortic findings suspected. IMPRESSION: No change in positioning of the chest tube. No left-sided pneumothorax seen (anterior pn eumothorax can be occult on portable imaging). Bilateral lung parenchymal opacification stable from prior imaging.
[2021-02-07 15:17] LABS: Arterial Blood Carboxyhemoglob 1.7 % (0-1.5); Blood Gas Oxyhemoglobin 86.6 % (94-97); Blood O2 Saturation 88.9 % (92-98.5)
[2021-02-07] MEDS: RIVAROXABAN 20 MG TABLET PO SCH (18:17)
[2021-02-08] MEDS: MORPHINE 2 MG/ML SYR IV PRN ×5 (00:45→20:45)
[2021-02-08] MEDS: Meropenem 1,000 MG in NA CHLORIDE 0.9% 100 ML IV SCH (00:47)
[2021-02-08] MEDS: INSULIN -REGULAR HUMAN 50 UNIT/0.5 ML ML SQ SCH ×4 (05:24→17:30)
[2021-02-08 06:08] LABS: Absolute Lymphocytes (CBC) 0.8 K/uL (0.7-4.9); Basophils % 0.3 % (0-1.3); Lymphocytes % 8.7 % (15.3-44.8); MPV 10.5 fL (7.6-11.3); RBC Red Blood Cell Count 3.54 M/uL (3.86-4.86)
[2021-02-08 06:36] LABS: BUN Blood Urea Nitrogen 25 mg/dL (7-18); Bicarbonate 37 mmol/L (21-32); Glucose Level 111 mg/dL (74-106); Potassium 4.5 mmol/L (3.5-5.1); Sodium Level 133 mmol/L (136-145)
--- NOTE | 2021-02-08 08:34 | RAD REPORT ---
EXAM DESCRIPTION: Paulette Single View02/08/2021 6:01 am CLINICAL HISTORY: Respiratory failure COMPARISON: February 07, 2021 FINDINGS: No significant change in the bilateral pulmonary opacities. PICC line in place. Feeding tube within the duodenum.
[2021-02-08] MEDS: INSULIN 70/30 100 UNITS/ML SQ SCH ×2 (08:37→17:30)
[2021-02-08] MEDS: AZELASTINE NASAL SPRAY 30 ML NAS SCH ×2 (09:00→20:20)
[2021-02-08] MEDS: FLUTICASONE 50MCG NASAL SPRAY NAS SCH ×2 (09:00→20:21)
--- NOTE | 2021-02-08 09:05 | P.PN ---
Subjective Date of Service: 02/08/21 Chief Complaint: Respiratory failure Subjective: No new changes Physical Examination - Vital Signs Temperature: 97.2 F Blood Pressure: 128/80 Pulse: 71 Respirations: 24 Pulse Ox (%): 96 - Physical Exam General: Mild distress Respiratory: Diminished, Other (Chest tube in place, no air leak on water seal) - Studies Medications List Reviewed: Yes Assessment And Plan - Current Problems (Diagnosis) (1) Acute pneumothorax Current Visit: Yes Status: Acute Plan: - COVID19+ : no improvement, slow decline, tachypnic, accessory muscles used, refused intubation. - continue daily chest x-rays - continue medical management - chest tube to water seal, will consider heimlich valve when positive pressure reduced - likely keep chest tube while on positive pressure ventilation
[2021-02-08] MEDS: METHYLPREDNISOLONE 40 MG INJ IV SCH ×2 (09:12→20:09)
[2021-02-08] MEDS: carvediloL 6.25 MG TAB PO SCH ×2 (09:13→20:09)
[2021-02-08] MEDS: BUSPIRONE HCL 5 MG TABLET PO SCH ×3 (09:13→20:09)
[2021-02-08] MEDS: LACTOBACILLUS/ACIDOPHILUS TAB PO SCH ×3 (09:13→20:08)
[2021-02-08] MEDS: ASPIRIN EC 81 MG TAB PO SCH (09:14)
[2021-02-08] MEDS: clonazePAM 0.5 MG TAB PO SCH ×2 (09:14→20:08)
[2021-02-08] MEDS: VENLAFAXINE HCL 75 MG TABLET PO SCH ×2 (09:14→20:08)
[2021-02-08] MEDS: FLUCONAZOLE 100 MG TAB PO SCH (09:14)
[2021-02-08 09:23] LABS: C-Reactive Protein 5.23 mg/L (<3.00); Ferritin 554.3 ng/mL (8-388)
--- NOTE | 2021-02-08 12:53 | P.PN ---
Subjective Date of Service: 02/08/21 Chief Complaint: Respiratory failure Nc stable Requiring high concentration of Fio2 Review of Systems is unable to be obtained Physical Examination - Vital Signs Temperature: 97.2 F Blood Pressure: 112/70 Pulse: 72 Respirations: 13 Pulse Ox (%): 95 - Physical Exam General: Unresponsive Respiratory: Clear to auscultation bilaterally, Diminished - Studies Medications List Reviewed: Yes Assessment & Plan - Problems (Diagnosis) (1) Pneumonia due to 2019 novel coronavirus Current Visit: Yes Status: Acute Plan: Resp failure. NC . No air dleak. Still on high concentration of Fio2, LAbsrev WBC is now normal, Prognosis poor. CXRY rev.No air leak
[2021-02-08 14:47] LABS: Arterial Blood Carboxyhemoglob 1.9 % (0-1.5); Blood Gas Oxyhemoglobin 85.3 % (94-97); Blood O2 Saturation 87.9 % (92-98.5)
[2021-02-08] MEDS: RIVAROXABAN 20 MG TABLET PO SCH (17:30)
[2021-02-08] MEDS: LORazepam 2 MG/ML VIAL IV PRN (17:32)
--- NOTE | 2021-02-08 18:20 | P.PN ---
Subjective Date of Service: 02/08/21 Chief Complaint: Respiratory failure Subjective: No new changes SHE IS GETTING WORSE. I SEE HER RESIPARATORY RATE GETTING HIGHER. SHE HAS MORE TACHYCARDIA. SHE IS MORE LETHARGIC. SHE IS LITTLE MORE AWAKE TODAY STILL NEEDS 85% FIO2 AND BIPAP. I ADDED MERREM AND STOPPED ROCEPIHN WBC RAISED TO 19K NOT TODAY IT IS DOWN TO 14K AFTER CHANGES I REDUCED LASIX TO 10 MG DAILY SHE SHOWS SOME DEHYDRATION. LASIX MAY HELP ARDS SYMPTOMS. OXYGEN NEED GOES FROM 85% TO 100%. FATIGUE, WEAK, DYSPNEIC AT REST. HER RESPIRATORY RATE IS HIGH. OXYGEN SATURATION GOES HIGH 98% ON 100% FIO2. SHE SEEMS TO HAVE BETTER OXYGENATION AFTER YESTERDAY'S DECLINE. SHE HAS SLIGHT IMPROVEMENT TODAY. OXYGENATION FLUCTUATES BETWEEN LOW AND NORMAL. TODAY SHE WAS AWAKE AND AGITATED SO NEEDING MORPHINE OFF AND ON. ATIVAN DOES NOT WORK. Review of Systems 10-point ROS is otherwise unremarkable General: Weakness, Malaise Respiratory: Shortness of Breath Physical Examination - Vital Signs Temperature: 97.6 F Blood Pressure: 153/88 Pulse: 78 Respirations: 15 Pulse Ox (%): 95 - Physical Exam General: Alert, Moderate distress, Obese HEENT: Atraumatic, PERRLA, EOMI Neck: Supple, JVD not distended Respiratory: Other (RAISED RESPIRATORY RATE.) Cardiovascular: Regular rate/rhythm, Normal S1 S2 Gastrointestinal: No tenderness Musculoskeletal: No tenderness Integumentary: No rashes Lymphatics: No axilla or inguinal lymphadenopathy - Studies Medications List Reviewed: Yes Assessment And Plan - Current Problems (Diagnosis) (1) Pneumonia due to 2019 novel coronavirus Current Visit: Yes Status: Acute Plan: HYPOXIA SEEMS TO BE STABLE. HYPERCAPNEA HAS IMPROVED SOME. RESUME BIPAP. RESUME OXYGEN, ABLE TO REDUCE FIO2 SOMEWHAT. PROGNOSIS IS STILL POOR. (2) Acute pneumothorax Current Visit: Yes Status: Acute Plan: THIS IS A COMPLICATION OR COVID. RESOLVED IN NEW X RAY AFTER CHEST TUBE PLACEMENT. (3) Pneumomediastinum Current Visit: Yes Status: Acute (4) Subcutaneous emphysema Current Visit: Yes Status: Acute (5) Depressed Current Visit: Yes Status: Acute Plan: VENLAFAXINE 37.5 MG DAILY TO START WITH. AGITATION STILL HAPPENS. KLONOPIN MAY HELP TO REDUCE MORPHINE. Qualifiers: Depression Type: reactive depression Qualified Code(s): F32.9 - Major depressive disorder, single episode, unspecified
[2021-02-09] MEDS: LORazepam 2 MG/ML VIAL IV PRN ×3 (00:09→23:52)
[2021-02-09] MEDS: INSULIN -REGULAR HUMAN 50 UNIT/0.5 ML ML SQ SCH ×5 (00:13→23:46)
[2021-02-09] MEDS: MORPHINE 2 MG/ML SYR IV PRN ×3 (01:30→21:17)
[2021-02-09] MEDS: VITAL HP 1,000 ML BOT RTH SCH (05:30)
[2021-02-09 05:59] LABS: Absolute Lymphocytes (CBC) 0.7 K/uL (0.7-4.9); Basophils % 0.2 % (0-1.3); Hematocrit 35.3 % (36.0-45.0); MPV 10.8 fL (7.6-11.3); RBC Red Blood Cell Count 3.78 M/uL (3.86-4.86)
[2021-02-09 06:23] LABS: BUN Blood Urea Nitrogen 28 mg/dL (7-18); Bicarbonate 36 mmol/L (21-32); C-Reactive Protein 5.14 mg/L (<3.00); Ferritin 610.9 ng/mL (8-388); Glucose Level 168 mg/dL (74-106); Sodium Level 132 mmol/L (136-145)
[2021-02-09 06:24] LABS: Potassium 4.8 mmol/L (3.5-5.1)
[2021-02-09] MEDS: INSULIN 70/30 100 UNITS/ML SQ SCH ×2 (08:41→17:54)
[2021-02-09] MEDS: carvediloL 6.25 MG TAB PO SCH ×2 (08:42→20:41)
[2021-02-09] MEDS: LACTOBACILLUS/ACIDOPHILUS TAB PO SCH ×3 (08:42→20:40)
[2021-02-09] MEDS: ASPIRIN EC 81 MG TAB PO SCH (08:42)
[2021-02-09] MEDS: FLUCONAZOLE 100 MG TAB PO SCH (08:42)
[2021-02-09] MEDS: METHYLPREDNISOLONE 40 MG INJ IV SCH ×2 (08:42→20:40)
[2021-02-09] MEDS: clonazePAM 0.5 MG TAB PO SCH (08:42)
[2021-02-09] MEDS: AZELASTINE NASAL SPRAY 30 ML NAS SCH ×2 (08:43→20:41)
[2021-02-09] MEDS: FLUTICASONE 50MCG NASAL SPRAY NAS SCH ×2 (08:43→20:41)
[2021-02-09] MEDS: VENLAFAXINE HCL 75 MG TABLET PO SCH ×2 (08:43→20:40)
[2021-02-09] MEDS: BUSPIRONE HCL 5 MG TABLET PO SCH ×3 (08:43→20:41)
[2021-02-09 11:29] LABS: Arterial Blood Carboxyhemoglob 1.9 % (0-1.5); Blood Gas Oxyhemoglobin 87.5 % (94-97); Blood O2 Saturation 90.1 % (92-98.5)
--- NOTE | 2021-02-09 11:46 | RAD REPORT ---
EXAM DESCRIPTION: RAD - Chest Single View - 02/09/2021 6:43 am CLINICAL HISTORY: Respiratory failure Chest pain. COMPARISON: Chest Pa And Lat (2 Views) dated 01/26/2019Chest Single View dated 02/08/2021; Chest Singl e View dated 02/07/2021; Chest Single View dated 02/05/2021; Abdomen 1 View (KUB) dated 02/04/2021 FINDINGS: Portable technique limits examination quality. Bilateral interstitial lung opacities appear slightly improved since prior study. Left-sided chest tu be is in place, unchanged. Enteric tube descends with its tip in the duodenal C-loop.Right-sided PICC line has tip in the SVC/right atrium junction. IMPRESSION: Fractional improvement lung aeration noted since comparative study.
[2021-02-09] MEDS: RIVAROXABAN 20 MG TABLET PO SCH (17:54)
[2021-02-09] MEDS: GUAIFENESIN/DM 5 ML UCUP PO PRN (20:40)
[2021-02-09] MEDS: clonazePAM 1 MG TAB FT SCH (20:40)
--- NOTE | 2021-02-09 21:41 | P.PN ---
Subjective Date of Service: 02/09/21 Chief Complaint: Respiratory failure Subjective: No new changes SHE IS GETTING WORSE. I SEE HER RESIPARATORY RATE GETTING HIGHER. SHE HAS MORE TACHYCARDIA. SHE IS MORE LETHARGIC. SHE IS LITTLE MORE AWAKE TODAY STILL NEEDS 85% FIO2 AND BIPAP. I ADDED MERREM AND STOPPED ROCEPIHN WBC RAISED TO 19K NOT TODAY IT IS DOWN TO 14K AFTER CHANGES I REDUCED LASIX TO 10 MG DAILY SHE SHOWS SOME DEHYDRATION. LASIX MAY HELP ARDS SYMPTOMS. OXYGEN NEED GOES FROM 85% TO 100%. FATIGUE, WEAK, DYSPNEIC AT REST. HER RESPIRATORY RATE IS HIGH. OXYGEN SATURATION GOES HIGH 98% ON 100% FIO2. SHE SEEMS TO HAVE BETTER OXYGENATION AFTER YESTERDAY'S DECLINE. SHE HAS SLIGHT IMPROVEMENT TODAY. OXYGENATION FLUCTUATES BETWEEN LOW AND NORMAL. TODAY SHE WAS AWAKE AND AGITATED SO NEEDING MORPHINE OFF AND ON. ATIVAN DOES NOT WORK. STILL GETS ANXIETY ATTACKS AND HAS TO BE GIVEN MORPHINE TO CALM DOWN. LORAZEPAM KLONOPIN AND EFFEXOR ARE NOT WORKING. I WILL START SSRI AND STOP SNRI FOR NOW. Physical Examination - Vital Signs Temperature: 98.8 F Blood Pressure: 182/95 Pulse: 92 Respirations: 14 Pulse Ox (%): 100 - Physical Exam General: Oriented x3, Moderate distress Cardiovascular: Regular rate/rhythm - Studies Medications List Reviewed: Yes Assessment And Plan - Current Problems (Diagnosis) (1) Pneumonia due to 2019 novel coronavirus Current Visit: Yes Status: Acute Plan: HYPOXIA SEEMS TO BE STABLE. HYPERCAPNEA HAS IMPROVED SOME. RESUME BIPAP. RESUME OXYGEN, ABLE TO REDUCE FIO2 SOMEWHAT. PROGNOSIS IS STILL POOR. GETS VERY AGITATED EVERY FEW HOURS. CO2 HAS RISEN AGAIN. (2) Acute pneumothorax Current Visit: Yes Status: Acute Plan: THIS IS A COMPLICATION OR COVID. RESOLVED IN NEW X RAY AFTER CHEST TUBE PLACEMENT. (3) Pneumomediastinum Current Visit: Yes Status: Acute (4) Subcutaneous emphysema Current Visit: Yes Status: Acute (5) Depressed Current Visit: Yes Status: Acute Plan: VENLAFAXINE 37.5 MG DAILY TO START WITH. AGITATION STILL HAPPENS. KLONOPIN MAY HELP TO REDUCE MORPHINE. DC VENLAFAXIN IT HAS NOT HELPED HER ANXIETY. Qualifiers: Depression Type: reactive depression Qualified Code(s): F32.9 - Major depressive disorder, single episode, unspecified
[2021-02-10] MEDS: MORPHINE 2 MG/ML SYR IV PRN ×3 (02:25→23:35)
[2021-02-10] MEDS: VITAL HP 1,000 ML BOT RTH SCH (05:00)
[2021-02-10] MEDS: INSULIN -REGULAR HUMAN 50 UNIT/0.5 ML ML SQ SCH ×3 (05:34→16:51)
[2021-02-10 05:58] LABS: Absolute Lymphocytes (CBC) 0.7 K/uL (0.7-4.9); Basophils % 0.5 % (0-1.3); Lymphocytes % 8.8 % (15.3-44.8); RBC Red Blood Cell Count 3.75 M/uL (3.86-4.86)
[2021-02-10 06:20] LABS: BUN Blood Urea Nitrogen 29 mg/dL (7-18); Bicarbonate 37 mmol/L (21-32); Ferritin 590.4 ng/mL (8-388); Glucose Level 156 mg/dL (74-106); Magnesium 2.2 mg/dL (1.8-2.4); Phosphorus 3.1 mg/dL (2.5-4.9); Potassium 4.6 mmol/L (3.5-5.1); Sodium Level 132 mmol/L (136-145)
[2021-02-10 06:22] LABS: C-Reactive Protein < 2.90 mg/L (<3.00)
[2021-02-10] MEDS: carvediloL 6.25 MG TAB PO SCH ×2 (08:08→19:56)
[2021-02-10] MEDS: BUSPIRONE HCL 5 MG TABLET PO SCH ×3 (08:09→19:56)
[2021-02-10] MEDS: METHYLPREDNISOLONE 40 MG INJ IV SCH ×2 (08:09→19:55)
[2021-02-10] MEDS: LACTOBACILLUS/ACIDOPHILUS TAB PO SCH ×3 (08:09→19:55)
[2021-02-10] MEDS: ASPIRIN EC 81 MG TAB PO SCH (08:09)
[2021-02-10] MEDS: clonazePAM 1 MG TAB FT SCH ×2 (08:09→19:55)
[2021-02-10] MEDS: SERTRALINE HCL 50 MG TAB PO SCH ×2 (08:10→19:55)
[2021-02-10] MEDS: AZELASTINE NASAL SPRAY 30 ML NAS SCH ×2 (08:10→19:57)
[2021-02-10] MEDS: FLUCONAZOLE 100 MG TAB PO SCH (08:10)
[2021-02-10] MEDS: FLUTICASONE 50MCG NASAL SPRAY NAS SCH ×2 (08:11→19:57)
[2021-02-10] MEDS: CLONIDINE 0.2 MG/PATCH TD SCH (08:17)
[2021-02-10] MEDS: INSULIN 70/30 100 UNITS/ML SQ SCH ×2 (08:28→16:50)
--- NOTE | 2021-02-10 08:38 | RAD REPORT ---
EXAM DESCRIPTION: Lauriet Single View02/10/2021 4:33 am CLINICAL HISTORY: Respiratory failure COMPARISON: February 09, 2021 FINDINGS: No significant change bilateral pulmonary opacities. Left chest tube in place without visu alization of a pneumothorax. Feeding tube within the duodenum PICC line at the junction of the superior vena cava and atrium. Heart is normal size IMPRESSION: No significant change in the bilateral pulmonary opacities
[2021-02-10 09:03] LABS: Blood Morphology Comment NOT SEEN (NOT SEEN); Platelet Estimate ADEQ
[2021-02-10] MEDS ORDERED: CLONIDINE 0.2 MG/PATCH TD SCH (10:00)
[2021-02-10] MEDS: LORazepam 2 MG/ML VIAL IV PRN ×2 (14:18→19:54)
[2021-02-10] MEDS: RIVAROXABAN 20 MG TABLET PO SCH (16:50)
[2021-02-10] MEDS: GUAIFENESIN/DM 5 ML UCUP PO PRN (19:54)
[2021-02-11] MEDS: D50W 25 GM/50 ML VIAL IV PRN ×2 (05:25→06:00)
[2021-02-11] MEDS: MORPHINE 2 MG/ML SYR IV PRN ×3 (05:25→19:58)
[2021-02-11 05:45] LABS: Absolute Lymphocytes (CBC) 0.7 K/uL (0.7-4.9); Basophils % 0.7 % (0-1.3); Hematocrit 35.4 % (36.0-45.0); RBC Red Blood Cell Count 3.81 M/uL (3.86-4.86)
[2021-02-11] MEDS: INSULIN -REGULAR HUMAN 50 UNIT/0.5 ML ML SQ SCH ×5 (06:00→23:44)
[2021-02-11 06:03] LABS: BUN Blood Urea Nitrogen 33 mg/dL (7-18); Bicarbonate 38 mmol/L (21-32); Potassium 4.6 mmol/L (3.5-5.1); Sodium Level 132 mmol/L (136-145)
[2021-02-11 06:04] LABS: C-Reactive Protein < 2.90 mg/L (<3.00)
[2021-02-11 06:05] LABS: Glucose Level 45 mg/dL (74-106)
[2021-02-11] MEDS: METOPROLOL TARTRATE 5 MG/5 ML INJ IV PRN ×3 (06:38→19:18)
[2021-02-11] MEDS ORDERED: D5 0.45 NS 1,000 ML IV ONE (06:52)
[2021-02-11] MEDS ORDERED: METOPROLOL TARTRATE 5 MG/5 ML INJ IV ONE (06:52)
[2021-02-11] MEDS ORDERED: D5 0.45 NS 1,000 ML IV SCH (07:00)
[2021-02-11 07:09] LABS: Magnesium 2.3 mg/dL (1.8-2.4); Phosphorus 4.5 mg/dL (2.5-4.9)
[2021-02-11] MEDS: ASPIRIN EC 81 MG TAB PO SCH (08:00)
[2021-02-11] MEDS: BUSPIRONE HCL 5 MG TABLET PO SCH ×3 (08:00→20:04)
[2021-02-11] MEDS: FLUTICASONE 50MCG NASAL SPRAY NAS SCH ×2 (08:01→20:04)
[2021-02-11] MEDS: clonazePAM 1 MG TAB FT SCH ×2 (08:01→20:04)
[2021-02-11] MEDS: LACTOBACILLUS/ACIDOPHILUS TAB PO SCH (08:01)
[2021-02-11] MEDS: carvediloL 6.25 MG TAB PO SCH ×2 (08:01→20:04)
[2021-02-11] MEDS: FLUCONAZOLE 100 MG TAB PO SCH (08:01)
--- NOTE | 2021-02-11 08:01 | P.PN ---
Subjective Date of Service: 02/11/21 Chief Complaint: Respiratory failure No change requiring high concentrations of oxygen Review of Systems is unable to be obtained Physical Examination - Vital Signs Temperature: 97.7 F Blood Pressure: 186/111 Pulse: 89 Respirations: 9 Pulse Ox (%): 97 - Physical Exam General: Unresponsive Respiratory: Clear to auscultation bilaterally, Diminished - Studies Medications List Reviewed: Yes Assessment & Plan - Problems (Diagnosis) (1) Pneumonia due to 2019 novel coronavirus Current Visit: Yes Status: Acute Plan: Respiratory failure on BiPAP ineffectual breathing patient is hypoxic hypercarbic slight drop in her blood sugar today CBCs normal now chest x-ray reviewed plan to increase EPAP to 15 try and titrate her O2 down to a sat of 90% renal function normal
[2021-02-11] MEDS: SERTRALINE HCL 50 MG TAB PO SCH ×2 (08:02→20:05)
--- NOTE | 2021-02-11 08:55 | RAD REPORT ---
EXAM DESCRIPTION: RAD - Chest Single View - 02/11/2021 7:08 am CLINICAL HISTORY: Respiratory failure Chest pain. COMPARISON: Chest Single View dated 02/10/2021; Chest Single View dated 02/09/2021; Chest Single View dated 02/08/2021; Chest Single View dated 02/07/2021 FINDINGS: Portable technique limits examination quality. Left-sided chest tube is in place. No measurable pneumothorax on the left. Mild basilar opacity in th e left lung base is present slightly progressive since prior study. Right-sided PICC line has tip in the SVC.The heart is upper limit normal size.
[2021-02-11] MEDS: METHYLPREDNISOLONE 40 MG INJ IV SCH ×2 (08:59→20:05)
[2021-02-11] MEDS: ENOXAPARIN 80 MG/0.8 ML SQ SCH ×2 (08:59→20:04)
[2021-02-11] MEDS: INSULIN 70/30 100 UNITS/ML SQ SCH ×2 (09:00→16:30)
[2021-02-11] MEDS: AZELASTINE NASAL SPRAY 30 ML NAS SCH ×2 (09:00→20:04)
[2021-02-11] MEDS: LORazepam 2 MG/ML VIAL IV PRN ×3 (10:03→22:11)
[2021-02-11] MEDS: AA 5%/D20W/ELECTROLYTES-TPN 2,000 ML, Lipids 20% 250 ML with MULTIVITAMINS INJ 10 ML IV SCH ×3 (16:48)
--- NOTE | 2021-02-11 21:46 | P.PN ---
Subjective Date of Service: 02/12/21 Chief Complaint: Respiratory failure Subjective: New changes SHE PULLED OUT HER DOBHOFF TUBE LAST NIGHT. THEY TRIED TO REINSERT AND SHE BECAME APNEIC. I ASKED THEM TO START ON TPN AND LEAVE OFF DOBHOFF FOR NOW. CHANGED SOME MEDS TO IV MEDS. Review of Systems 10-point ROS is otherwise unremarkable General: Weakness, Malaise Respiratory: Shortness of Breath Physical Examination - Vital Signs Temperature: 98.0 F Blood Pressure: 171/88 Pulse: 85 Respirations: 28 Pulse Ox (%): 98 - Physical Exam General: Oriented x2 - Studies Medications List Reviewed: Yes Assessment And Plan - Current Problems (Diagnosis) (1) Pneumonia due to 2019 novel coronavirus Current Visit: Yes Status: Acute Plan: HYPOXIA SEEMS TO BE STABLE. HYPERCAPNEA HAS IMPROVED SOME. RESUME BIPAP. RESUME OXYGEN, ABLE TO REDUCE FIO2 SOMEWHAT. PROGNOSIS IS STILL POOR. GETS VERY AGITATED EVERY FEW HOURS. CO2 HAS RISEN AGAIN. CXR HAS IMPROVED BUT HER CLINICAL CONDITION OF SEVERE HYPOXIA IS NOT IMPROVING SIGNIFICANLTY. PROGNOSIS STAYS POOR. I TALKED TO SEDRICK THE DAUGHTER IN LAW WHO IS IN CHARGE. (2) Acute pneumothorax Current Visit: Yes Status: Acute Plan: THIS IS A COMPLICATION OR COVID. RESOLVED IN NEW X RAY AFTER CHEST TUBE PLACEMENT. (3) Pneumomediastinum Current Visit: Yes Status: Acute (4) Subcutaneous emphysema Current Visit: Yes Status: Acute (5) Depressed Current Visit: Yes Status: Acute Plan: VENLAFAXINE 37.5 MG DAILY TO START WITH. AGITATION STILL HAPPENS. KLONOPIN MAY HELP TO REDUCE MORPHINE. DC VENLAFAXIN IT HAS NOT HELPED HER ANXIETY. Qualifiers: Depression Type: reactive depression Qualified Code(s): F32.9 - Major depressive disorder, single episode, unspecified
[2021-02-12] MEDS: MORPHINE 2 MG/ML SYR IV PRN ×4 (00:45→20:16)
[2021-02-12] MEDS: LORazepam 2 MG/ML VIAL IV PRN ×2 (02:47→20:16)
[2021-02-12 05:10] VITALS: BMI 32.2
[2021-02-12 05:27] LABS: BUN Blood Urea Nitrogen 23 mg/dL (7-18); Bicarbonate 36 mmol/L (21-32); Glucose Level 258 mg/dL (74-106); Potassium 4.4 mmol/L (3.5-5.1); Sodium Level 133 mmol/L (136-145)
[2021-02-12 05:42] LABS: Absolute Lymphocytes (CBC) 0.5 K/uL (0.7-4.9); Basophils % 0.1 % (0-1.3); Hematocrit 32.9 % (36.0-45.0); Lymphocytes % 6.2 % (15.3-44.8); MPV 9.8 fL (7.6-11.3); RBC Red Blood Cell Count 3.52 M/uL (3.86-4.86)
[2021-02-12] MEDS: INSULIN -REGULAR HUMAN 50 UNIT/0.5 ML ML SQ SCH ×5 (06:00→23:56)
[2021-02-12] MEDS: INSULIN 70/30 100 UNITS/ML SQ SCH ×2 (07:54→16:57)
[2021-02-12] MEDS: METHYLPREDNISOLONE 40 MG INJ IV SCH ×2 (07:55→20:23)
[2021-02-12] MEDS: ENOXAPARIN 80 MG/0.8 ML SQ SCH ×2 (07:55→20:17)
[2021-02-12] MEDS: METOPROLOL TARTRATE 5 MG/5 ML INJ IV PRN ×2 (08:25→19:10)
[2021-02-12] MEDS: carvediloL 6.25 MG TAB PO SCH ×2 (09:00→20:31)
[2021-02-12] MEDS: ASPIRIN EC 81 MG TAB PO SCH (09:00)
[2021-02-12] MEDS: FLUCONAZOLE 100 MG TAB PO SCH (09:00)
[2021-02-12] MEDS: AZELASTINE NASAL SPRAY 30 ML NAS SCH ×2 (09:00→20:30)
[2021-02-12] MEDS: BUSPIRONE HCL 5 MG TABLET PO SCH ×3 (09:00→20:31)
[2021-02-12] MEDS: FLUTICASONE 50MCG NASAL SPRAY NAS SCH ×2 (09:00→20:31)
[2021-02-12] MEDS: SERTRALINE HCL 50 MG TAB PO SCH ×2 (09:00→20:34)
[2021-02-12] MEDS: clonazePAM 1 MG TAB FT SCH ×2 (09:00→20:34)
[2021-02-12 12:46] LABS: Arterial Blood Carboxyhemoglob 1.7 % (0-1.5); Blood Gas Oxyhemoglobin 88.7 % (94-97)
[2021-02-12] MEDS: AA 5%/D20W/ELECTROLYTES-TPN 2,000 ML, Lipids 20% 250 ML with MULTIVITAMINS INJ 10 ML IV SCH ×3 (17:52)
--- NOTE | 2021-02-12 20:55 | P.PN ---
Subjective Date of Service: 02/12/21 Chief Complaint: Respiratory failure Subjective: No new changes SHE PULLED OUT HER DOBHOFF TUBE LAST NIGHT. THEY TRIED TO REINSERT AND SHE BECAME APNEIC. I ASKED THEM TO START ON TPN AND LEAVE OFF DOBHOFF FOR NOW. CHANGED SOME MEDS TO IV MEDS. ADAM IS STILL VERY DEPENDENT ON OXYGEN WITH BIPAP. ANY ATTEMPT TO FEED HER OR GIVE MEDICINE RAPIDLY DESATURATES HER AND SHE HAS SEVERE BRADYCARDIA DURING THE ATTEMPT. Review of Systems is unable to be obtained Physical Examination - Vital Signs Temperature: 96.7 F Blood Pressure: 129/71 Pulse: 95 Respirations: 28 Pulse Ox (%): 96 - Physical Exam General: Severe distress, Obese Respiratory: Other (RESPIRATORY DISTRESS.) Cardiovascular: Regular rate/rhythm - Studies Medications List Reviewed: Yes Assessment And Plan - Current Problems (Diagnosis) (1) Pneumonia due to 2019 novel coronavirus Current Visit: Yes Status: Acute Plan: HYPOXIA SEEMS TO BE STABLE. HYPERCAPNEA HAS IMPROVED SOME. RESUME BIPAP. RESUME OXYGEN, ABLE TO REDUCE FIO2 SOMEWHAT. PROGNOSIS IS STILL POOR. GETS VERY AGITATED EVERY FEW HOURS. CO2 HAS RISEN AGAIN. CXR HAS IMPROVED BUT HER CLINICAL CONDITION OF SEVERE HYPOXIA IS NOT IMPROVING SIGNIFICANLTY. PROGNOSIS STAYS POOR. I TALKED TO SEDRICK THE DAUGHTER IN LAW WHO IS IN CHARGE. HYPERCAPNEA IS WORSE TO 60 MM. FIOD IS 80% BUT SHE IS NOT ABLE TO SUSTAIN WITHOUT BIPAP AND HIGH DOSE OF OXYGEN SUPPLY. (2) Acute pneumothorax Current Visit: Yes Status: Acute Plan: THIS IS A COMPLICATION OR COVID. RESOLVED IN NEW X RAY AFTER CHEST TUBE PLACEMENT. (3) Pneumomediastinum Current Visit: Yes Status: Acute (4) Subcutaneous emphysema Current Visit: Yes Status: Acute (5) Depressed Current Visit: Yes Status: Acute Plan: VENLAFAXINE 37.5 MG DAILY TO START WITH. AGITATION STILL HAPPENS. KLONOPIN MAY HELP TO REDUCE MORPHINE. DC VENLAFAXIN IT HAS NOT HELPED HER ANXIETY. Qualifiers: Depression Type: reactive depression Qualified Code(s): F32.9 - Major depressive disorder, single episode, unspecified
[2021-02-13] MEDS: MORPHINE 2 MG/ML SYR IV PRN ×5 (01:00→23:31)
[2021-02-13] MEDS: LORazepam 2 MG/ML VIAL IV PRN ×3 (01:01→20:12)
[2021-02-13 05:28] LABS: Absolute Lymphocytes (CBC) 0.4 K/uL (0.7-4.9); Basophils % 0.1 % (0-1.3); Hematocrit 28.9 % (36.0-45.0); Lymphocytes % 4.8 % (15.3-44.8); MPV 9.3 fL (7.6-11.3)
[2021-02-13 05:50] LABS: BUN Blood Urea Nitrogen 25 mg/dL (7-18); Bicarbonate 39 mmol/L (21-32); C-Reactive Protein 4.02 mg/L (<3.00); Ferritin 540.2 ng/mL (8-388); Glucose Level 242 mg/dL (74-106); Potassium 4.5 mmol/L (3.5-5.1); Sodium Level 140 mmol/L (136-145)
[2021-02-13] MEDS: INSULIN -REGULAR HUMAN 50 UNIT/0.5 ML ML SQ SCH ×3 (05:58→17:59)
[2021-02-13 06:27] LABS: Arterial Blood Carboxyhemoglob 1.9 % (0-1.5); Blood Gas Oxyhemoglobin 89.8 % (94-97); Blood O2 Saturation 92.6 % (92-98.5)
[2021-02-13] MEDS: SERTRALINE HCL 50 MG TAB PO SCH ×2 (09:00→21:00)
[2021-02-13] MEDS: FLUCONAZOLE 100 MG TAB PO SCH (09:00)
[2021-02-13] MEDS: BUSPIRONE HCL 5 MG TABLET PO SCH ×3 (09:00→21:00)
[2021-02-13] MEDS: AZELASTINE NASAL SPRAY 30 ML NAS SCH ×2 (09:00→21:00)
[2021-02-13] MEDS: FLUTICASONE 50MCG NASAL SPRAY NAS SCH ×2 (09:00→21:00)
[2021-02-13] MEDS: carvediloL 6.25 MG TAB PO SCH ×2 (09:00→21:00)
[2021-02-13] MEDS: ASPIRIN EC 81 MG TAB PO SCH (09:00)
[2021-02-13] MEDS: clonazePAM 1 MG TAB FT SCH ×2 (09:00→21:00)
[2021-02-13] MEDS: METHYLPREDNISOLONE 40 MG INJ IV SCH ×2 (09:36→22:42)
[2021-02-13] MEDS: INSULIN 70/30 100 UNITS/ML SQ SCH ×2 (09:37→18:00)
[2021-02-13] MEDS: ENOXAPARIN 80 MG/0.8 ML SQ SCH ×2 (09:37→22:42)
--- NOTE | 2021-02-13 12:27 | P.PN ---
Subjective Date of Service: 02/13/21 Chief Complaint: Respiratory failure unresponsive Patient is not doing well alertness is decreased as been no change in her oxygenation is hypoxic permissive hypercapnia Physical Examination - Vital Signs Temperature: 96.9 F Blood Pressure: 147/85 Pulse: 109 Respirations: 33 Pulse Ox (%): 92 - Studies Medications List Reviewed: Yes Assessment & Plan - Problems (Diagnosis) (1) Pneumonia due to 2019 novel coronavirus Current Visit: Yes Status: Acute Plan: Respiratory failure patient's condition is deteriorating she has hypoxic hypercapnic no change in the high FiO2 requirement labs reviewed blood sugar is mildly elevated prognosis very poor
[2021-02-13 16:58] VITALS: TEMP 95.6
[2021-02-13] MEDS: AA 5%/D20W/ELECTROLYTES-TPN 2,000 ML, Lipids 20% 250 ML with MULTIVITAMINS INJ 10 ML IV SCH ×3 (17:58)
--- NOTE | 2021-02-13 20:39 | P.PN ---
Subjective Date of Service: 02/13/21 Chief Complaint: Respiratory failure unresponsive Subjective: Worsening SHE PULLED OUT HER DOBHOFF TUBE LAST NIGHT. THEY TRIED TO REINSERT AND SHE BECAME APNEIC. I ASKED THEM TO START ON TPN AND LEAVE OFF DOBHOFF FOR NOW. CHANGED SOME MEDS TO IV MEDS. ADAM IS STILL VERY DEPENDENT ON OXYGEN WITH BIPAP. ANY ATTEMPT TO FEED HER OR GIVE MEDICINE RAPIDLY DESATURATES HER AND SHE HAS SEVERE BRADYCARDIA DURING THE ATTEMPT. SHE IS GETTING WORSE. SHE IS BECOMING MORE UNRESPONSIVE. HER RESPIRATORY RATE IS HIGH. Review of Systems is unable to be obtained Physical Examination - Vital Signs Temperature: 95.6 F Blood Pressure: 120/57 Pulse: 125 Respirations: 20 Pulse Ox (%): 85 - Physical Exam General: Severe distress, Unresponsive, Obese Respiratory: Other (RAPID RESP RATE.) Cardiovascular: Regular rate/rhythm (TACHYCARDIA.) - Studies Medications List Reviewed: Yes Assessment And Plan - Current Problems (Diagnosis) (1) Pneumonia due to 2019 novel coronavirus Current Visit: Yes Status: Acute Plan: HYPOXIA SEEMS TO BE STABLE. HYPERCAPNEA HAS IMPROVED SOME. RESUME BIPAP. RESUME OXYGEN, ABLE TO REDUCE FIO2 SOMEWHAT. PROGNOSIS IS STILL POOR. GETS VERY AGITATED EVERY FEW HOURS. CO2 HAS RISEN AGAIN. CXR HAS IMPROVED BUT HER CLINICAL CONDITION OF SEVERE HYPOXIA IS NOT IMPROVING SIGNIFICANLTY. PROGNOSIS STAYS POOR. I TALKED TO SEDRICK THE DAUGHTER IN LAW WHO IS IN CHARGE. HYPERCAPNEA IS WORSE TO 60 MM. FIOD IS 80% BUT SHE IS NOT ABLE TO SUSTAIN WITHOUT BIPAP AND HIGH DOSE OF OXYGEN SUPPLY. RESPIRATORY FAILURE WORSENING EVIDENCED BY RAPID HEART RATE, RAPID RESPIRATORY RATE, HIGH PCO2, FAILURE TO REDUCE OXYGEN SUPPLEMNTATION, OBTUNDATION, RAPID ABDOMINOTHORACIC BREATHING. I TALKED TO SEDRICK TODAY WHO IS THE DAUGHTER IN LAW IN CHARGE. SHE ASKED ABOUT TRANSFER TO [place] AGAIN. I EXPLAINED THAT WE TRIED THAT WHEN SHE ASKED LAST WEEK. LIZBETH CALLED ME AND THEN THEY TALKED TO . HER CONDITION WAS UNSTABLE TO TRANSFER EVEN AT THAT TIME AND MORE SO NOW. I TOLD HER THAT SHE IS TERMINAL AT THIS POINT AND TRANSFER TO ANY HOSPITAL IS NOT AND WAS NOT GOING TO CHANGE HER PROGNOSIS. SHE WILL CONVEY MESSAGE TO FAMILY. (2) Acute pneumothorax Current Visit: Yes Status: Acute Plan: THIS IS A COMPLICATION OR COVID. RESOLVED IN NEW X RAY AFTER CHEST TUBE PLACEMENT. (3) Pneumomediastinum Current Visit: Yes Status: Acute (4) Subcutaneous emphysema Current Visit: Yes Status: Acute (5) Depressed Current Visit: Yes Status: Acute Plan: VENLAFAXINE 37.5 MG DAILY TO START WITH. AGITATION STILL HAPPENS. KLONOPIN MAY HELP TO REDUCE MORPHINE. DC VENLAFAXIN IT HAS NOT HELPED HER ANXIETY. Qualifiers: Depression Type: reactive depression Qualified Code(s): F32.9 - Major depressive disorder, single episode, unspecified
[2021-02-13] MEDS: NOREPINEPHRINE 4 MG in D5W 250 ML IV PRN (22:30)
[2021-02-13] MEDS ORDERED: NOREPINEPHRINE 4mg/D5W 250mL 4 MG/250 ML BAG IV ONE (22:48)
[2021-02-14] MEDS: INSULIN -REGULAR HUMAN 50 UNIT/0.5 ML ML SQ SCH (00:21)
[2021-02-14] MEDS: NOREPINEPHRINE 4 MG in D5W 250 ML IV PRN (01:27)
[2021-02-14] MEDS ORDERED: NOREPINEPHRINE 4mg/D5W 250mL 4 MG/250 ML BAG IV ONE (01:44)
[2021-02-14] MEDS ORDERED: EPINEPHrine 1 MG/10 ML SYR IV ONE (02:51)
--- NOTE | 2021-02-14 03:02 | P.PN ---
Date of Service: 02/14/21 Harry salmeron was called at 0226, patient had reportedly been hypoxic on BiPAP for last few hr with saturations in the 60s. Patient has had prolonged hospital stay for respiratory failure secondary to COVID-19 pneumonia. Patient had wishes for DNI. Patient had become progressively tachycardic followed by asystole, chest compressions were started, patient received multiple rounds of epinephrine and had gone into a fine VFib. Patient was defibrillated a total of 3 times, ACLS protocols followed. Family were available in the hospital, after the 3rd shock I went and discussed with them that while she was still in the VFib her chances a recovery after the situation like this given the surrounding situation is extremely unlikely given that we were not going to be able to address the underlying cause. Family understood, gave Ok to discontinue resuscitation efforts. CPR was discontinued at 0245 in time of was called, patient quickly progressed to asystole. February she rest in peace
[2021-02-14 03:39] VITALS: BP 141/58
[2021-02-14 05:31] VITALS: O2SAT 58
--- NOTE | 2021-02-14 20:31 | P.DS ---
Admission Date: 01/13/21 Discharge Date: 02/14/21 Disposition: Discharge Condition: Reason for Admission: Respiratory failure unresponsive - Problems (1) Pneumonia due to 2019 novel coronavirus Status: Acute (2) Acute pneumothorax Status: Acute (3) Pneumomediastinum Status: Acute (4) Subcutaneous emphysema Status: Acute (5) Depressed Status: Acute Qualifiers: Depression Type: reactive depression Qualified Code(s): F32.9 - Major depressive disorder, single episode, unspecified Brief History of Present Illness: MS. BUSH FOUND THAT SHE HAD COVID INFECTION ABOUTA WEEK AGO. I WAS NOT TOLD ABOUT THIS. SHE REPORTS TO ER FOR DYSPNEA. SHE HAS NOT TAKEN ANY THERAPY FOR IT. Hospital Course: MA. BUSH CAME WITH COVID REALTED RESPIRATORY FAILURE AND FAILED TO IMPROVE DESPITE EXTENSIVE THEAPY AND CARE BY THE TEAM OF DOCTORS AND NURSES. SHE ALSO DEVELOPED PNEUMOTHORAX IN THE BEGINNING OF HOSPITAL ADMISSION FOR WHICH SHE HAD CHEST TUBE PLACED. SHE LAST NIGHT EXPECTED. I HAD DISCUSSED WITH FAMILY PERIODICALLY INCLUDING YESTERDAY THAT SHE IS GETTING WORSE AND WILL NOT MAKE IT. Vital Signs/Physical Exam: Temp Pulse Resp BP Pulse Ox 95.6 F L 132 H 16 141/58 H 44 L 02/13/21 20:39 02/14/21 02:45 02/14/21 02:30 02/14/21 02:45 02/14/21 02:30 Laboratory Data at Discharge: WBC 8.30 K/uL (4.3-10.9) 02/13/21 04:50 Hgb 10.2 g/dL (12.0-15.0) L 02/13/21 04:50 Hct 28.9 % (36.0-45.0) L 02/13/21 04:50 Plt Count 172 K/uL (152-406) 02/13/21 04:50 Sodium 140 mmol/L (136-145) 02/13/21 04:50 Potassium 4.5 mmol/L (3.5-5.1) 02/13/21 04:50 BUN 25 mg/dL (7-18) H 02/13/21 04:50 Creatinine 0.23 mg/dL (0.55-1.3) L 02/13/21 04:50 Glucose 242 mg/dL (74-106) H 02/13/21 04:50 Phosphorus 4.5 mg/dL (2.5-4.9) 02/11/21 05:15 Magnesium 2.3 mg/dL (1.8-2.4) 02/11/21 05:15 Total Bilirubin 0.5 mg/dL (0.2-1.0) 02/03/21 05:02 AST 11 U/L (15-37) L 02/03/21 05:02 ALT 36 U/L (12-78) 02/03/21 05:02 Alkaline Phosphatase 70 U/L (45-117) 02/03/21 05:02 Home Medications: NK [No Home Meds] 01/13/21 Followup: NONE,NONE [Primary Care Provider] -
== END 2021-02-14 02:52 | disposition expired | DRG 177 ==
LOC: ER 16:11 → ERHOLD 17:37 → 4TH 20:18 → 3RD-ICU 01-25 12:27
PROVIDERS: ADMIT Internal Medicine; ATTEND Internal Medicine
PROC: XW033E5 Introduction of Remdesivir Anti-infective into Peripheral Vein, Percutaneous Approach, New Technology Group 5 (ICD-10-PCS; 2021-01-15)
PROC: 5A09557 Assistance with Respiratory Ventilation, Greater than 96 Consecutive Hours, Continuous Positive Airway Pressure (ICD-10-PCS; principal; 2021-01-16)
PROC: 0W9B30Z Drainage of Left Pleural Cavity with Drainage Device, Percutaneous Approach (ICD-10-PCS; 2021-01-22)
PROC: 3E0336Z Introduction of Nutritional Substance into Peripheral Vein, Percutaneous Approach (ICD-10-PCS; 2021-01-29)
PROC: 02HV33Z Insertion of Infusion Device into Superior Vena Cava, Percutaneous Approach (ICD-10-PCS; 2021-02-03)
PROC: 5A12012 Performance of Cardiac Output, Single, Manual (ICD-10-PCS; 2021-02-14)
DX: U07.1 COVID-19 (principal); G93.41 Metabolic encephalopathy; J96.01 Acute respiratory failure with hypoxia; J12.82 Pneumonia due to coronavirus disease 2019; E44.1 Mild protein-calorie malnutrition; T79.7XXA Traumatic subcutaneous emphysema, initial encounter; J93.83 Other pneumothorax; F32.9 Major depressive disorder, single episode, unspecified; E86.0 Dehydration; F41.9 Anxiety disorder, unspecified; I49.01 Ventricular fibrillation; R00.0 Tachycardia, unspecified; Z68.32 Body mass index [BMI] 32.0-32.9, adult
CPT/HCPCS: 36415; 36569; 70491; 71045; 74018; 80048; 80053; 80076; 82728; 82805; 82947; 83605; 83735; 84100; 84145; 85025; 85027; 85379; 86140; 86900; 86901; 87040; 93005; 94002; 94003; 94660; 94760; 96374; 96375; 99285; J0171; J0696; J1170; J1815; J1940; J2185; J2270; J2405; J2920; J2930; J7050; J7799